=== PATIENT | male | born 1940 | race Caucasian/White ===

== ENCOUNTER 2017-06-09 16:54 | Inpatient (IN) | payer MEDICARE ==
[2017-06-09] MEDS ORDERED: Dexamethasone 10 MG/ML VIAL ONE (18:01)
[2017-06-09] MEDS ORDERED: Magnesium Sulfate 2 GM/NS 0.9% 50 ML BAG ONE (18:01)
[2017-06-09] MEDS ORDERED: Digoxin 0.5 MG/2 ML AMP ONE (18:01)
[2017-06-09] MEDS ORDERED: Dextrose 50% Abboject 50 ML SYRINGE SLOW IVP PRN (18:50)
[2017-06-09] MEDS ORDERED: Acetaminophen 325 MG TAB PO PRN (18:50)
[2017-06-09] MEDS ORDERED: Ondansetron ODT 4 MG TAB PO PRN (18:50)
[2017-06-09] MEDS ORDERED: HYDROcodone/Acetaminophen 5/325 mg Tablet PO PRN (18:50)
[2017-06-09] MEDS ORDERED: Dextrose 5% in Water 1,000 ML IV PRN (18:50)
[2017-06-09] MEDS ORDERED: Albuterol Sulfate 2.5 mg/3 ml Neb NEB PRN (18:56)
[2017-06-09 19:22] LABS: CKMB 2.1 ng/mL (0-6.6); Troponin I 0.037 ng/mL (< 0.028)
[2017-06-09] MEDS ORDERED: Non-Formulary Item 1 EACH (Insulin Glargine,Hum.Rec.Anlog 50 UNIT) SQ SCH (21:00)
[2017-06-09] MEDS ORDERED: Atorvastatin Calcium 10 MG TAB PO SCH (21:00)
[2017-06-09] MEDS ORDERED: Apixaban 5 MG TAB PO SCH (21:00)
[2017-06-09 22:28] LABS: Troponin I 0.709 ng/mL (< 0.028)
[2017-06-10 01:03] LABS: Troponin I 1.835 ng/mL (< 0.028)
[2017-06-10 03:33] LABS: #Lymphocytes 0.4 thou/uL (1.20-3.40); #Monocytes 0.3 thou/uL (0.11-0.59); #Neutrophils 9.9 thou/uL (1.40-6.50); %Eosinophils 0.1 % (0.0-10.0); %Lymphocytes 3.3 % (21.0-51.0); %Monocytes 2.8 % (0.0-10.0); %Neutrophils 93.8 % (42.0-75.0); Hemoglobin 11.3 g/dL (14.0-18.0); Mean Corpuscular Hemoglobin 29.4 pg (27.0-31.0); Mean Corpuscular Volume 89.1 fl (80.0-94.0); Mean Platelet Volume 7.3 fL (7.4-10.4); Platelet Count 235 thou/uL (130-400); Red Blood Cell (RBC) Count 3.85 mill/uL (4.70-6.10); White Blood Cell (WBC) Count 10.6 thou/uL (4.8-10.8)
[2017-06-10 03:36] LABS: Hemoglobin A1c 8.3 % (4.0-6.0)
[2017-06-10 03:48] LABS: Anion Gap 17 mmol/L (10-20); BUN (Urea Nitrogen) 26 mg/dL (8.4-25.7); Calc. Creatinine Clearance 0 mL/min (70-130); Calcium 9.5 mg/dL (7.8-10.44); Carbon Dioxide 19 mmol/L (23-31); Cardiac Risk 3.3 (Less than 4.5); Chloride 101 mmol/L (98-107); Cholesterol 140 mg/dl (< 200 Desired); Estimated GFR-MDRD 41; Glucose 424 mg/dL (83-110); HDL Cholesterol 43 mg/dL (>60 Neg Risk); LDL Cholesterol, Calculated 69 mg/dL; Magnesium 2.1 mg/dL (1.6-2.6); Potassium 4.1 mmol/L (3.5-5.1); Sodium 133 mmol/L (136-145); Triglycerides 139 mg/dL (Less than 150)
[2017-06-10 03:56] LABS: CKMB 10.3 ng/mL (0-6.6); Critical Call Chem Troponin I RESULT DECREASING; Troponin I 1.625 ng/mL (< 0.028)
--- NOTE | 2017-06-10 06:11 | HP ---
DATE OF ADMISSION: 06/09/2017 TIME OF ADMISSION: 1840 hours. PRIMARY CARE PHYSICIAN: Dr. Mckeon. CHIEF COMPLAINT: Shortness of breath. HISTORY OF PRESENT ILLNESS: Mr. August is a 77-year-old white male with history of diabetes, hypertension, hyperlipidemia, and COPD, who presented to [place] [facility] today with 5 days of shortness of breath. He has subjective fevers at home and 5 days of runny nose and congestion, became progressively short of breath, so went to the emergency department this morning, he was admitted to [facility] for acute exacerbation, chronic obstructive pulmonary disease. While there, he was noted to have a high heart rate. He was moved back to the ER for telemetry monitoring, he was noted to be in atrial fibrillation with RVR , so he subsequently discharged and told to come to our Emergency department here. On arrival, he was found to be in atrial fibrillation with RVR. He was given 0.5 mg of digoxin, and started on Cardizem drip. We were called for admission. On my arrival, he had converted to normal sinus rhythm and the process of getting converted over to oral Cardizem. The patient denies any chest pain at this time. No nausea, vomiting, diarrhea, or constipation. He has had no fevers or chills. PAST MEDICAL HISTORY: 1. Diabetes mellitus type 2. 2. Peptic ulcer disease: The patient had multiple ulcers present some 20 years ago. PAST SURGICAL HISTORY: 1. Right TKA about 20 years ago. 2. Appendectomy in 1966 with cholecystectomy in 2016. 3. Umbilical hernia repair in 2016. 4. Four other hernia repairs over the last 20 years. He had his last stress test and heart catheterization in 2008. No stents were placed. HOME MEDICATIONS: 1. Metformin 1000 mg p.o. b.i.d. 2. Clonidine 0.1 mg p.o. b.i.d. 3. Zocor 20 mg p.o. at bedtime. 4. Cholest Off 1 daily. 5. Omeprazole 40 mg daily. 6. Singulair 10 mg p.o. at bedtime. 7. Lantus 50 units subcutaneous q.p.m. 8. HCTZ 25 mg daily. 9. Glimepiride 2 mg p.o. q.a.m. 10. Symbicort 80/4.5 two puffs inhaled b.i.d. 11. Aspirin 81 mg daily. ALLERGIES: NIASPAN. FAMILY HISTORY: Significant for coronary artery disease. He has 5 brother and sister with heart issues. SOCIAL HISTORY: Negative for habits x3. He is 52 years. 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 We did talk about the code status. He does wish to be a full code. His son, Matthew August, area code [phone], as his surrogate decision maker, should he become incapacitated. REVIEW OF SYSTEMS: A 10-point review of systems was performed, negative for all other systems except as stated as per HPI. PHYSICAL EXAMINATION: VITAL SIGNS: Temperature 98.1, pulse 100, blood pressure 121/90, respiratory rate 22, satting 96% on 2 liters nasal cannula. GENERAL: He is awake, alert, and oriented x3, is a well-developed, well- nourished, obese, older white male, appears to be in no acute distress. HEENT: Normocephalic, atraumatic. Pupils equal, round, and reactive to light bilaterally, mucous membranes are moist. He has no visible lesion, no thrush. NECK: Supple, There is no lymphadenopathy, no JVD, no thyromegaly. He has normal carotid upstrokes. I do not appreciate bruits. LUNGS: Clear to auscultation bilaterally. He has good air movement. There is no prolonged expiratory phase and no wheezing. There are no rhonchi or crackles heard. CARDIOVASCULAR: He is tachycardic, but regular. Does have frequent ectopy at this point. He has a 3/6 holosystolic murmur best heard at the apex. ABDOMEN: Obese. It is nontender and slightly distended. He is tympanitic, but does not shift. He has no rebound, rigidity, or guarding. He has normoactive bowel sounds present in all 4 quadrants. EXTREMITIES: Show no cyanosis, no clubbing with trace bilateral lower extremity edema to just above the ankles. He has a 2+ palpable dorsalis pedis, and posterior tibial pulses bilaterally, 2+ radial pulses bilaterally. SKIN: Warm, moist and well perfused without any other rashes or lesions. NEUROLOGIC: Cranial nerves II-XII grossly intact. He has normal speech pattern , 5/5 strength in all 4 of his extremities. He has no focal neurologic deficits. MUSCULOSKELETAL: Normal to inspection. There is no joint inflammation. No palpable effusions. LABORATORY DATA: Sodium 137, potassium 4.5, chloride 104, bicarbonate 18, BUN 17, creatinine 1.25 and calcium 9.3. Glucose is 214. Liver functions are normal. D-dimer was 0.33 this morning. CBC showed white count of 10.1, hemoglobin 12.0, hematocrit 36.8, and platelet count is 214,000. CK-MB was 1.4 and 1.3. Troponin I was 0.020 and BNP was 69. Influenza screen was negative. Chest x-ray showed cardiomegaly, but no signs of CHF or pneumonia. ASSESSMENT AND PLAN: 1. Acute hypoxemic respiratory failure. 2. New onset atrial fibrillation with rapid ventricular response, status post chemical cardioversion. 3. History of peptic ulcer disease. I will place the patient on inpatient status. We will try to convert him over to p.o. Cardizem. We will get serial cardiac biomarkers and ask Cardiology to evaluate. He is in low risk for falls. I will go ahead and start him on Eliquis 5 mg p.o. b.i.d. for his atrial fibrillation, stroke prophylaxis. We will follow up on Cardiology recommendations. 4. Acute exacerbation of chronic obstructive pulmonary disease. DuoNebs q.4 hours and albuterol q.2 hours p.r.n. We used Solu-Medrol 40 mg IV q.6 hours, tonight and likely get oral steroids tomorrow. We will continue him on doxycycline, given that he has had multi antiarrhythmics, I do not want put him on Levaquin at this time. 5. Diabetes mellitus type 2. He is on Lantus normally, metformin, and glimepiride. We will hold the oral medications for now. We use sliding scale insulin, put him on diabetic diet. 6. Hypertension, currently controlled. We will continue home medications. 7. Hyperlipidemia, on Zocor and CholestOff. 8. History of gastroesophageal reflux disease and peptic ulcer disease, on omeprazole. We will continue that daily. MTDD
[2017-06-10 06:27] LABS: Bilirubin Negative (Negative); Blood, Urine Negative (Negative); Clarity CLEAR (Clear); Glucose, Urine (Dipstick) >=1000 mg/dL (Negative); Leukocyte Negative (Negative); Nitrite Negative (Negative); Protein, Urine (Dipstick) Trace mg/dL (Neg-Trace); Specific Gravity, Urine 1.035 (1.002-1.036); Urobilinogen 0.2 mg/dL (0.2-1.0); pH, Urine 5.5 (5.0-9.0)
[2017-06-10] MEDS ORDERED: Enoxaparin Sodium 100 MG/ML SYRINGE SC SCH (08:15)
[2017-06-10] MEDS ORDERED: Digoxin 0.125 MG TAB PO SCH (09:00)
[2017-06-10] MEDS ORDERED: Hydrochlorothiazide 25 MG TAB PO SCH (09:00)
[2017-06-10] MEDS ORDERED: cloNIDine 0.1 MG TAB ONE (10:42)
[2017-06-10] MEDS ORDERED: Digoxin 0.125 MG TAB ONE (10:42)
[2017-06-10] MEDS ORDERED: Sterile Water 10 ML ONE ×2 (10:43→16:22)
[2017-06-10 11:31] LABS: CKMB 9.4 ng/mL (0-6.6); Troponin I 1.623 ng/mL (< 0.028)
[2017-06-10] MEDS ORDERED: Enoxaparin Sodium 100 MG/ML SYRINGE ONE (11:36)
[2017-06-10] MEDS ORDERED: Insulin Regular 300 UNITS/3 ML VIAL ONE (11:50)
[2017-06-10 15:40] VITALS: BMI 37.1
--- NOTE | 2017-06-10 16:08 | PDOC.PN ---
- Subjective Encounter Start Date: 06/10/17 Encounter Start Time: 12:20 PT still in ER overnight. Cardiology not consulted. Remains in NSR. trop peaked at 1.8 before coming down. no CP, SOB improve,d no n/V/D/c, no cough or sputum. 10 point ROs performed and neg for all systems except as above - Objective Resuscitation Status: Resuscitation Status FULL:Full Resuscitation MAR Reviewed: Yes Vital Signs & Weight: Vital Signs (12 hours) Temp Pulse Resp BP Pulse Ox 06/10/17 15:20 96.2 F L 90 24 H 142/71 H 90 L 06/10/17 14:06 89 13 06/10/17 07:13 96 06/10/17 07:12 90 16 Weight Weight 289 lb 6.4 oz Result Diagrams: 06/10/17 03:20 06/10/17 03:20 Additional Labs: Accuchecks 06/10/17 06/10/17 06/10/17 14:55 14:11 12:57 POC Glucose 364 H 362 H 399 H 06/10/17 06/10/17 11:45 00:24 POC Glucose 423 H 316 H Radiology Reviewed by me: Yes EKG Reviewed by me: Yes Phys Exam - Physical Examination Constitutional: NAD HEENT: PERRLA, moist MMs, sclera anicteric, oral pharynx no lesions Neck: no nodes, no JVD, supple, full ROM Respiratory: no wheezing, no rales, no rhonchi, clear to auscultation bilateral Cardiovascular: RRR, no rub apical HSM stable Gastrointestinal: soft, non-tender, no distention, positive bowel sounds Musculoskeletal: no edema, pulses present Neurological: non-focal, normal sensation, moves all 4 limbs Lymphatic: no nodes Psychiatric: normal affect, A&O x 3 Skin: no rash, normal turgor, cap refill <2 seconds Dx/Plan (1) Acute exacerbation of chronic obstructive pulmonary disease (COPD) Code(s): J44.1 - CHRONIC OBSTRUCTIVE PULMONARY DISEASE W (ACUTE) EXACERBATION Status: Acute Comment: improved, steroids, nebs, abx, wena o2 as toleated. mobilize (2) Acute hypoxemic respiratory failure Code(s): J96.01 - ACUTE RESPIRATORY FAILURE WITH HYPOXIA Status: Acute Comment: improved, wena O2 as tolerated (3) NSTEMI (non-ST elevated myocardial infarction) Code(s): I21.4 - NON-ST ELEVATION (NSTEMI) MYOCARDIAL INFARCTION Status: Acute Comment: Trop peaked at 1.8. I have spoken with Dr Cutler, he will see (4) DM2 (diabetes mellitus, type 2) Status: Chronic Qualifiers: Diabetes mellitus complication status: without complication Diabetes mellitus fdc insulin use: without fdc use Qualified Code(s): E11.9 - Type 2 diabetes mellitus without complications Comment: SSI to cover increased glucose due to steroids (5) HTN (hypertension) Code(s): I10 - ESSENTIAL (PRIMARY) HYPERTENSION Status: Chronic Qualifiers: Hypertension type: essential hypertension Qualified Code(s): I10 - Essential (primary) hypertension (6) HLD (hyperlipidemia) Code(s): E78.5 - HYPERLIPIDEMIA, UNSPECIFIED Status: Chronic Qualifiers: Hyperlipidemia type: unspecified Qualified Code(s): E78.5 - Hyperlipidemia , unspecified (7) GERD (gastroesophageal reflux disease) Code(s): K21.9 - GASTRO-ESOPHAGEAL REFLUX DISEASE WITHOUT ESOPHAGITIS Status: Chronic Qualifiers: Esophagitis presence: without esophagitis Qualified Code(s): K21.9 - Gastro -esophageal reflux disease without esophagitis - Plan cont current plan of care, PT/OT, respiratory therapy, out of bed/ambulate * .
[2017-06-10] MEDS: HumaLOG 300 UNITS/3 ML VIAL SC PRN (16:58)
[2017-06-10] MEDS: Sodium Chloride 0.9% 10 ML ONE (17:03)
[2017-06-10] MEDS: Aspirin 81 mg Enteric Coated Tablet PO SCH (19:34)
[2017-06-10] MEDS: Doxycycline 100 MG CAP PO SCH ×3 (19:36→20:47)
[2017-06-10] MEDS: cloNIDine 0.1 MG TAB PO SCH ×3 (19:40→20:47)
[2017-06-10] MEDS: Insulin Detemir 100 UNITS/ML 50 UNITS in Pre-Filled Syringe 1 EACH SC SCH ×2 (19:45→20:47)
[2017-06-10] MEDS: Montelukast Sodium 10 mg Tablet PO SCH ×2 (19:47→20:48)
[2017-06-10] MEDS: Atorvastatin Calcium 40 MG TAB PO SCH (20:47)
[2017-06-10 22:46] LABS: Hemoglobin 11.5 g/dL (14.0-18.0); Platelet Count 260 thou/uL (130-400)
--- NOTE | 2017-06-11 00:46 | CON ---
DATE OF CONSULTATION: 06/10/2017 HISTORY OF PRESENT ILLNESS: The patient is a 77-year-old gentleman who presented with palpitations and chest discomfort. The patient states he has a long history of coronary artery disease. He has undergone several cardiac catheterizations, which revealed him to have apparently a 40% lesion. The patient has been on medical therapy and has done well. He was in his usual state of health when he developed palpitations and then noticed having pain radiating to his left arm. The patient was at that time was in [facility] with flu-like symptoms. The patient was transferred to [place] for further evaluation. The patient denies having any present chest discomfort. PAST MEDICAL HISTORY: 1. Diabetes mellitus. 2. Hypertension. 3. Hyperlipidemia. 4. Peptic ulcer disease. PAST SURGICAL HISTORY: Appendectomy, knee replacement and several hernia surgeries. MEDICATIONS ON ADMISSION: Metformin 1000 b.i.d., clonidine 0.1 b.i.d., Zocor 20 at bedtime, Prilosec 40 daily, Singulair 10 at bedtime, HCTZ 25 daily, aspirin 81 daily. MEDICATIONS: Aspirin 81 daily, clonidine 0.1 b.i.d., glimepiride 2 daily, HCTZ 25 daily, Zocor 20 at bedtime, Prilosec 40 daily. ALLERGIES: NIACIN. FAMILY HISTORY: Very strong family history of heart disease. 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 REVIEW OF SYSTEMS: 10-point system otherwise unremarkable. No history of easy bruising or bright red blood per rectum. PHYSICAL EXAMINATION: GENERAL: An obese gentleman in mild distress. VITAL SIGNS: Blood pressure is 142/71, heart rate is 90. NECK: Showed no jugular venous distention. LUNGS: Coarse breath sounds bilateral. HEART: Regular rate and rhythm. Normal S1, S2. No murmurs. ABDOMEN: Distended. EXTREMITIES: Mild edema. SKIN: Warm and dry. NEUROLOGIC: Nonfocal. VASCULAR: Radial pulse is 2. LABORATORY RESULTS: Sodium is 133, potassium 4.1, chloride 101, bicarbonate 19 , BUN is 26, creatinine is 1.65. His white blood cell count is 10.6, hemoglobin 11.3, hematocrit 34.4 and his platelets were 235. His EKG revealed multifocal atrial tachycardia with a nonspecific ST-T wave abnormality. IMPRESSION: 1. Non-Q-wave myocardial infarction. 2. Multifocal atrial tachycardia. 3. Hypertension. 4. Dyslipidemia. 5. Diabetes mellitus. 6. Morbid obesity. This gentleman presents with a non-Q-wave myocardial infarction. He developed a rapid multifocal atrial tachycardia, which responded to IV Cardizem. The patient will continue on medical therapy. I have discussed the option of proceeding with a cardiac catheterization during this hospitalization. The patient agrees to proceed. PLAN: 1. Treat IV Cardizem. 2. Discontinue Eliquis. 3. Proceed with cardiac catheterization during this hospitalization. DONA
[2017-06-11 05:28] LABS: Anion Gap 17 mmol/L (10-20); BUN (Urea Nitrogen) 31 mg/dL (8.4-25.7); Calc. Creatinine Clearance 78 mL/min (70-130); Calcium 9.4 mg/dL (7.8-10.44); Carbon Dioxide 19 mmol/L (23-31); Chloride 101 mmol/L (98-107); Estimated GFR-MDRD 46; Glucose 342 mg/dL (83-110); Potassium 4.1 mmol/L (3.5-5.1); Sodium 133 mmol/L (136-145)
[2017-06-11 06:32] LABS: #Lymphocytes 0.5 thou/uL (1.20-3.40); #Monocytes 0.5 thou/uL (0.11-0.59); #Neutrophils 14.1 thou/uL (1.40-6.50); %Eosinophils 0.1 % (0.0-10.0); %Lymphocytes 3.4 % (21.0-51.0); %Neutrophils 93.5 % (42.0-75.0); Hemoglobin 11.5 g/dL (14.0-18.0); Mean Corpuscular HGB CONC 33.4 g/dL (32.0-36.0); Mean Corpuscular Hemoglobin 29.5 pg (27.0-31.0); Mean Corpuscular Volume 88.2 fl (80.0-94.0); Mean Platelet Volume 8.2 fL (7.4-10.4); Platelet Count 235 thou/uL (130-400); RBC Distribution Width 13.8 % (11.5-14.5); Red Blood Cell (RBC) Count 3.91 mill/uL (4.70-6.10); White Blood Cell (WBC) Count 15.1 thou/uL (4.8-10.8)
[2017-06-11 06:50] LABS: CKMB 4.9 ng/mL (0-6.6)
[2017-06-11 06:57] LABS: Critical Call Chem Troponin I RESULT DECREASING; Troponin I 0.925 ng/mL (< 0.028)
[2017-06-11] MEDS ORDERED: Sterile Water 10 ML ONE (08:23)
[2017-06-11] MEDS: Doxycycline 100 MG CAP PO SCH ×2 (09:37→20:38)
[2017-06-11] MEDS: cloNIDine 0.1 MG TAB PO SCH ×2 (09:37→20:37)
[2017-06-11] MEDS: Glimepiride 2 MG TAB PO SCH (09:38)
[2017-06-11] MEDS: metFORMIN 500 MG TAB PO SCH ×2 (09:38→17:36)
[2017-06-11] MEDS: Aspirin 81 mg Enteric Coated Tablet PO SCH (09:40)
[2017-06-11] MEDS: Sodium Chloride 0.9% 10 ML ONE ×2 (09:40→15:29)
--- NOTE | 2017-06-11 12:22 | PDOC.PN ---
- Subjective Encounter Start Date: 06/11/17 Encounter Start Time: 07:30 No CP or SOB, no N/V/D/C, breathing much better, less tightness. No cough or sputum production. Seen by Dr Cutler from cardiology last night, to take for cath. unfortunately , was called by nursing regarding eliquis, told them to stop it, and it got given this morning, no cath until tomorrow 10 point rOS performed and neg for all systems except as per HPI - Objective Resuscitation Status: Resuscitation Status FULL:Full Resuscitation MAR Reviewed: Yes Vital Signs & Weight: Vital Signs (12 hours) Temp Pulse Resp BP BP Pulse Ox 06/11/17 11:59 88 24 H 06/11/17 09:37 162/74 H 06/11/17 08:04 92 L 06/11/17 08:00 97.7 F 84 18 162/74 H 96 06/11/17 07:59 72 24 H 92 L 06/11/17 04:01 95 06/11/17 04:00 98.0 F 84 18 145/79 H 93 L 06/11/17 03:46 82 20 95 Weight Admit Weight 289 lb 6.4 oz Weight 289 lb 6.4 oz I&O: 06/10/17 06/11/17 06/12/17 06:59 06:59 06:59 Intake Total 735 Output Total 650 Balance 85 Result Diagrams: 06/11/17 04:39 06/11/17 04:40 Additional Labs: Accuchecks 06/11/17 06/11/17 06/10/17 11:02 05:33 20:00 POC Glucose 410 H 321 H 281 H 06/10/17 06/10/17 06/10/17 16:57 14:55 14:11 POC Glucose 346 H 364 H 362 H 06/10/17 12:57 POC Glucose 399 H Radiology Reviewed by me: Yes EKG Reviewed by me: Yes Phys Exam - Physical Examination Constitutional: NAD HEENT: PERRLA, moist MMs, sclera anicteric, oral pharynx no lesions Neck: no nodes, no JVD, supple, full ROM Respiratory: no wheezing, no rales, no rhonchi, clear to auscultation bilateral Cardiovascular: RRR, no significant murmur, no rub Gastrointestinal: soft, non-tender, no distention, positive bowel sounds Musculoskeletal: no edema, pulses present Neurological: non-focal, normal sensation, moves all 4 limbs Lymphatic: no nodes Psychiatric: normal affect, A&O x 3 Skin: no rash, normal turgor, cap refill <2 seconds Dx/Plan (1) Acute exacerbation of chronic obstructive pulmonary disease (COPD) Code(s): J44.1 - CHRONIC OBSTRUCTIVE PULMONARY DISEASE W (ACUTE) EXACERBATION Status: Acute Comment: improved, steroids, nebs, abx, wean o2 as toleated. mobilize (2) Acute hypoxemic respiratory failure Code(s): J96.01 - ACUTE RESPIRATORY FAILURE WITH HYPOXIA Status: Acute Comment: improved, wean O2 as tolerated (3) NSTEMI (non-ST elevated myocardial infarction) Code(s): I21.4 - NON-ST ELEVATION (NSTEMI) MYOCARDIAL INFARCTION Status: Acute Comment: Trop peaked at 1.8. I have spoken with DAMIEN Shelley tomorrow (4) DM2 (diabetes mellitus, type 2) Status: Chronic Qualifiers: Diabetes mellitus complication status: without complication Diabetes mellitus technician terminal and repeater insulin use: without mcc use Qualified Code(s): E11.9 - Type 2 diabetes mellitus without complications Comment: SSI to cover increased glucose due to steroids (5) HTN (hypertension) Code(s): I10 - ESSENTIAL (PRIMARY) HYPERTENSION Status: Chronic Qualifiers: Hypertension type: essential hypertension Qualified Code(s): I10 - Essential (primary) hypertension (6) HLD (hyperlipidemia) Code(s): E78.5 - HYPERLIPIDEMIA, UNSPECIFIED Status: Chronic Qualifiers: Hyperlipidemia type: unspecified Qualified Code(s): E78.5 - Hyperlipidemia , unspecified (7) GERD (gastroesophageal reflux disease) Code(s): K21.9 - GASTRO-ESOPHAGEAL REFLUX DISEASE WITHOUT ESOPHAGITIS Status: Chronic Qualifiers: Esophagitis presence: without esophagitis Qualified Code(s): K21.9 - Gastro -esophageal reflux disease without esophagitis - Plan cont current plan of care, continue antibiotics, respiratory therapy, out of bed /ambulate * .
[2017-06-11] MEDS: HumaLOG 300 UNITS/3 ML VIAL SC PRN ×2 (15:28→17:38)
[2017-06-11] MEDS: Atorvastatin Calcium 40 MG TAB PO SCH (20:36)
[2017-06-11] MEDS: Enoxaparin Sodium 40 MG/0.4 ML SYRINGE SC SCH (20:38)
[2017-06-11] MEDS: Insulin Detemir 100 UNITS/ML 50 UNITS in Pre-Filled Syringe 1 EACH SC SCH (20:38)
[2017-06-11] MEDS: Montelukast Sodium 10 mg Tablet PO SCH (20:39)
[2017-06-12] MEDS: HYDROcodone/Acetaminophen 10/325 mg Tablet PO PRN (02:09)
[2017-06-12 05:15] LABS: #Lymphocytes 0.4 thou/uL (1.20-3.40); #Monocytes 0.6 thou/uL (0.11-0.59); #Neutrophils 15.5 thou/uL (1.40-6.50); %Eosinophils 0.2 % (0.0-10.0); %Lymphocytes 2.1 % (21.0-51.0); %Monocytes 3.9 % (0.0-10.0); %Neutrophils 93.8 % (42.0-75.0); Mean Corpuscular HGB CONC 32.3 g/dL (32.0-36.0); Mean Corpuscular Hemoglobin 28.9 pg (27.0-31.0); Mean Corpuscular Volume 89.4 fl (80.0-94.0); Mean Platelet Volume 7.9 fL (7.4-10.4); Platelet Count 271 thou/uL (130-400); RBC Distribution Width 13.8 % (11.5-14.5); Red Blood Cell (RBC) Count 4.17 mill/uL (4.70-6.10); White Blood Cell (WBC) Count 16.5 thou/uL (4.8-10.8)
[2017-06-12 05:46] LABS: Anion Gap 20 mmol/L (10-20); BUN (Urea Nitrogen) 37 mg/dL (8.4-25.7); Calc. Creatinine Clearance 78 mL/min (70-130); Calcium 9.6 mg/dL (7.8-10.44); Carbon Dioxide 16 mmol/L (23-31); Chloride 101 mmol/L (98-107); Estimated GFR-MDRD 46; Glucose 316 mg/dL (83-110); Magnesium 2.3 mg/dL (1.6-2.6); Potassium 4.4 mmol/L (3.5-5.1); Sodium 133 mmol/L (136-145)
[2017-06-12] MEDS ORDERED: Communication Order-Pharmacy FS SCH (08:30)
[2017-06-12] MEDS: metFORMIN 500 MG TAB PO SCH ×2 (08:59→17:38)
[2017-06-12] MEDS: cloNIDine 0.1 MG TAB PO SCH ×2 (08:59→20:11)
[2017-06-12] MEDS: Glimepiride 2 MG TAB PO SCH (08:59)
[2017-06-12] MEDS: Aspirin 81 mg Enteric Coated Tablet PO SCH (08:59)
[2017-06-12] MEDS: HumaLOG 300 UNITS/3 ML VIAL SC PRN ×3 (09:00→17:39)
[2017-06-12] MEDS: Doxycycline 100 MG CAP PO SCH ×2 (09:00→20:11)
[2017-06-12] MEDS: Sodium Chloride 0.9% 10 ML ONE (09:00)
--- NOTE | 2017-06-12 14:14 | PDOC.PN ---
- Subjective Encounter Start Date: 06/12/17 Encounter Start Time: 09:30 had a coughing paroxysm last night, leading to left shoulder pain. tele normal , given pain medicine and resolved. No CP, no SOb, no n/V/D/C, no Fever or chills, no cough 10 point ROS performed and neg for all systems except as above. - Objective Resuscitation Status: Resuscitation Status FULL:Full Resuscitation MAR Reviewed: Yes Vital Signs & Weight: Vital Signs (12 hours) Temp Pulse Resp BP BP BP Pulse Ox 06/12/17 11:05 97.2 F L 93 19 134/62 92 L 06/12/17 10:34 85 16 95 06/12/17 08:59 120/56 L 06/12/17 08:00 97.3 F L 86 22 H 159/72 H 95 06/12/17 07:00 97.2 F L 93 19 97 06/12/17 06:57 86 16 96 06/12/17 04:46 94 L 06/12/17 04:00 97.5 F L 86 22 H 120/58 L 93 L Weight Admit Weight 289 lb 6.4 oz Weight 289 lb 6.4 oz I&O: 06/11/17 06/12/17 06/13/17 06:59 06:59 06:59 Intake Total 735 600 Output Total 650 900 Balance 85 -300 Result Diagrams: 06/12/17 05:01 06/12/17 05:01 Additional Labs: Accuchecks 06/12/17 06/12/17 06/11/17 12:09 06:19 19:56 POC Glucose 352 H 298 H 317 H 06/11/17 17:35 POC Glucose 426 H Radiology Reviewed by me: Yes EKG Reviewed by me: Yes Phys Exam - Physical Examination Constitutional: NAD HEENT: PERRLA, moist MMs, sclera anicteric, oral pharynx no lesions Neck: no nodes, no JVD, supple, full ROM Respiratory: no wheezing, no rales, no rhonchi, clear to auscultation bilateral Cardiovascular: RRR, no significant murmur, no rub Gastrointestinal: soft, non-tender, no distention, positive bowel sounds Musculoskeletal: pulses present, edema present Neurological: non-focal, normal sensation, moves all 4 limbs Lymphatic: no nodes Psychiatric: normal affect, A&O x 3 Skin: no rash, normal turgor, cap refill <2 seconds Dx/Plan (1) Acute exacerbation of chronic obstructive pulmonary disease (COPD) Code(s): J44.1 - CHRONIC OBSTRUCTIVE PULMONARY DISEASE W (ACUTE) EXACERBATION Status: Acute Comment: improved, steroids, nebs, abx, wean o2 as tolerated. mobilize (2) Acute hypoxemic respiratory failure Code(s): J96.01 - ACUTE RESPIRATORY FAILURE WITH HYPOXIA Status: Acute Comment: improved, wean O2 as tolerated (3) NSTEMI (non-ST elevated myocardial infarction) Code(s): I21.4 - NON-ST ELEVATION (NSTEMI) MYOCARDIAL INFARCTION Status: Acute Comment: Trop peaked at 1.8. I have spoken with DAMIEN Shelley tomorrow (4) DM2 (diabetes mellitus, type 2) Status: Chronic Qualifiers: Diabetes mellitus complication status: without complication Diabetes mellitus residential insulin use: without extermination inspector use Qualified Code(s): E11.9 - Type 2 diabetes mellitus without complications Comment: SSI to cover increased glucose due to steroids (5) HTN (hypertension) Code(s): I10 - ESSENTIAL (PRIMARY) HYPERTENSION Status: Chronic Qualifiers: Hypertension type: essential hypertension Qualified Code(s): I10 - Essential (primary) hypertension (6) HLD (hyperlipidemia) Code(s): E78.5 - HYPERLIPIDEMIA, UNSPECIFIED Status: Chronic Qualifiers: Hyperlipidemia type: unspecified Qualified Code(s): E78.5 - Hyperlipidemia , unspecified (7) GERD (gastroesophageal reflux disease) Code(s): K21.9 - GASTRO-ESOPHAGEAL REFLUX DISEASE WITHOUT ESOPHAGITIS Status: Chronic Qualifiers: Esophagitis presence: without esophagitis Qualified Code(s): K21.9 - Gastro -esophageal reflux disease without esophagitis - Plan * .
[2017-06-12] MEDS ORDERED: Sodium Chloride 0.9% 10 ML ONE (14:31)
[2017-06-12] MEDS: Atorvastatin Calcium 40 MG TAB PO SCH (20:10)
[2017-06-12] MEDS: Montelukast Sodium 10 mg Tablet PO SCH (20:11)
[2017-06-12] MEDS: Insulin Detemir 100 UNITS/ML 50 UNITS in Pre-Filled Syringe 1 EACH SC SCH (20:16)
[2017-06-12 22:59] LABS: Hemoglobin 11.8 g/dL (14.0-18.0); Platelet Count 288 thou/uL (130-400)
[2017-06-13] MEDS: Enoxaparin Sodium 40 MG/0.4 ML SYRINGE SC SCH (01:39)
[2017-06-13] MEDS: cloNIDine 0.1 MG TAB PO SCH ×2 (06:32→21:17)
[2017-06-13] MEDS: Aspirin 81 mg Enteric Coated Tablet PO SCH (06:32)
[2017-06-13] MEDS ORDERED: Metoprolol Tartrate 5 MG/5 ML VIAL ONE ×3 (09:22→10:14)
[2017-06-13] MEDS ORDERED: Iopamidol 370 76% 100 ML VIAL ONE (09:37)
[2017-06-13] MEDS ORDERED: Acetaminophen/Codeine 30-300mg Tablet PO PRN ×2 (09:57)
[2017-06-13] MEDS ORDERED: traMADol HCl 50 MG TAB PO PRN (09:57)
[2017-06-13] MEDS ORDERED: Nitroglycerin 0.4 MG TAB (25 Tab Bottle) SL PRN (09:57)
[2017-06-13] MEDS ORDERED: Sodium Chloride 0.9% 200 ML IV SCH (10:00)
[2017-06-13] MEDS ORDERED: hydrALAZINE 20 MG/ML VIAL ONE (10:14)
[2017-06-13] MEDS: metFORMIN 500 MG TAB PO SCH ×2 (10:34→17:05)
[2017-06-13] MEDS: Glimepiride 2 MG TAB PO SCH (10:34)
[2017-06-13] MEDS: Doxycycline 100 MG CAP PO SCH ×2 (10:34→21:18)
[2017-06-13] MEDS: HumaLOG 300 UNITS/3 ML VIAL SC PRN ×2 (11:27→17:05)
[2017-06-13] MEDS ORDERED: Clopidogrel Bisulfate 300 MG TAB PO SCH (14:30)
[2017-06-13] MEDS: HYDROcodone/Acetaminophen 10/325 mg Tablet PO PRN (14:50)
--- NOTE | 2017-06-13 15:36 | PDOC.PN ---
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 Had diffused CAD, nothing amenable to stenting, medical management only. No further CP or SOB, weaned off of o2, giovanni nebs. Discussed with Dr Cutler, possible d/C in AM. Pt didnt have afib, was MAT 10 point ROS performed and neg for all systmes except as above - Objective Resuscitation Status: Resuscitation Status FULL:Full Resuscitation MAR Reviewed: Yes Vital Signs & Weight: Vital Signs (12 hours) Temp Pulse Resp BP BP BP Pulse Ox 06/13/17 11:23 97.7 F 76 20 135/79 92 L 06/13/17 09:57 98 F 80 18 162/89 H 92 L 06/13/17 08:00 98 F 80 18 141/73 H 92 L 06/13/17 06:32 132/62 06/13/17 04:00 97.7 F 81 18 132/62 92 L Weight Admit Weight 289 lb 6.4 oz Weight 289 lb 6.4 oz I&O: 06/12/17 06/13/17 06/14/17 06:59 06:59 06:59 Intake Total 600 520 Output Total 900 975 Balance -300 -455 Result Diagrams: 06/12/17 22:50 06/12/17 22:50 Additional Labs: Accuchecks 06/13/17 06/13/17 06/13/17 11:21 10:44 05:56 POC Glucose 304 H 320 H 297 H 06/12/17 06/12/17 20:02 16:48 POC Glucose 266 H 290 H Radiology Reviewed by me: Yes EKG Reviewed by me: Yes Phys Exam - Physical Examination Constitutional: NAD HEENT: PERRLA, moist MMs, sclera anicteric, oral pharynx no lesions Neck: no nodes, no JVD, supple, full ROM Respiratory: no wheezing, no rales, no rhonchi, clear to auscultation bilateral Cardiovascular: RRR, no significant murmur, no rub Gastrointestinal: soft, non-tender, no distention, positive bowel sounds Musculoskeletal: pulses present, edema present Neurological: non-focal, normal sensation, moves all 4 limbs Lymphatic: no nodes Psychiatric: normal affect, A&O x 3 Skin: no rash, normal turgor, cap refill <2 seconds Dx/Plan (1) Acute exacerbation of chronic obstructive pulmonary disease (COPD) Code(s): J44.1 - CHRONIC OBSTRUCTIVE PULMONARY DISEASE W (ACUTE) EXACERBATION Status: Acute Comment: improved, steroids, nebs, abx, wean o2 as tolerated. mobilize (2) Acute hypoxemic respiratory failure Code(s): J96.01 - ACUTE RESPIRATORY FAILURE WITH HYPOXIA Status: Acute Comment: improved, wean O2 as tolerated (3) NSTEMI (non-ST elevated myocardial infarction) Code(s): I21.4 - NON-ST ELEVATION (NSTEMI) MYOCARDIAL INFARCTION Status: Acute Comment: Trop peaked at 1.8. I have spoken with DAMIEN Shelley tomorrow (4) DM2 (diabetes mellitus, type 2) Status: Chronic Qualifiers: Diabetes mellitus complication status: without complication Diabetes mellitus technician terminal and repeater insulin use: without usp use Qualified Code(s): E11.9 - Type 2 diabetes mellitus without complications Comment: SSI to cover increased glucose due to steroids (5) HTN (hypertension) Code(s): I10 - ESSENTIAL (PRIMARY) HYPERTENSION Status: Chronic Qualifiers: Hypertension type: essential hypertension Qualified Code(s): I10 - Essential (primary) hypertension (6) HLD (hyperlipidemia) Code(s): E78.5 - HYPERLIPIDEMIA, UNSPECIFIED Status: Chronic Qualifiers: Hyperlipidemia type: unspecified Qualified Code(s): E78.5 - Hyperlipidemia , unspecified (7) GERD (gastroesophageal reflux disease) Code(s): K21.9 - GASTRO-ESOPHAGEAL REFLUX DISEASE WITHOUT ESOPHAGITIS Status: Chronic Qualifiers: Esophagitis presence: without esophagitis Qualified Code(s): K21.9 - Gastro -esophageal reflux disease without esophagitis - Plan * .
[2017-06-13] MEDS: Atorvastatin Calcium 40 MG TAB PO SCH (21:17)
[2017-06-13] MEDS: Insulin Detemir 100 UNITS/ML 50 UNITS in Pre-Filled Syringe 1 EACH SC SCH (21:18)
[2017-06-13] MEDS: Montelukast Sodium 10 mg Tablet PO SCH (21:18)
[2017-06-14 05:05] LABS: Anion Gap 18 mmol/L (10-20); BUN (Urea Nitrogen) 45 mg/dL (8.4-25.7); Calc. Creatinine Clearance 74 mL/min (70-130); Calcium 8.8 mg/dL (7.8-10.44); Carbon Dioxide 18 mmol/L (23-31); Chloride 103 mmol/L (98-107); Estimated GFR-MDRD 43; Glucose 276 mg/dL (83-110); Potassium 4.6 mmol/L (3.5-5.1); Sodium 134 mmol/L (136-145)
[2017-06-14 07:31] VITALS: BP 148/75; TEMP 97.9
[2017-06-14] MEDS: Doxycycline 100 MG CAP PO SCH (08:51)
[2017-06-14] MEDS: cloNIDine 0.1 MG TAB PO SCH (08:51)
[2017-06-14] MEDS: HumaLOG 300 UNITS/3 ML VIAL SC PRN (08:51)
[2017-06-14] MEDS: Glimepiride 2 MG TAB PO SCH (08:51)
[2017-06-14] MEDS: Aspirin 81 mg Enteric Coated Tablet PO SCH (08:51)
[2017-06-14] MEDS: metFORMIN 500 MG TAB PO SCH (08:51)
[2017-06-14] MEDS ORDERED: Clopidogrel Bisulfate 75 MG TAB PO SCH (09:00)
--- NOTE | 2017-06-14 09:30 | DIS ---
DATE OF ADMISSION: 06/19/2017 DATE OF DISCHARGE: 06/14/2017 PRIMARY CARE PHYSICIAN: Mike Mckeon M.D. DISCHARGE DIAGNOSES: 1. Acute exacerbation of chronic obstructive pulmonary disease. 2. Multifocal atrial tachycardia. 3. Non-ST elevation myocardial infarction. 4. Diffuse non-interventional coronary artery disease. 5. Hypertension. 6. Hyperlipidemia. 7. Diabetes mellitus type 2, insulin-dependent. CONSULTATION: Dr. Clyde Cutler with Cardiology. PROCEDURES: 1. A 2D echocardiogram on 06/09/2017 showed EF of 55%-60%, mildly dilated left atrium, moderate MR, mild TR and small trivial pericardial effusion. 2. Left heart catheterization on 06/22/2017 showing diffuse coronary artery disease with no areas of intervention possible. HISTORY AND PHYSICAL: Mr. August is a 77-year-old white male who presented to outside facility with shortness of breath, was found to have an acute exacerbation of COPD. He was admitted there, but whi le there developed a tachycardia that was irregular and was subsequently transferred to our ER. Here, he was seen and evaluated and found to be in atrial fibrillation and we were called for admissi on. HOSPITAL COURSE: The patient was seen and examined, he was certainly irregularly irregular rhythm, h e was having moderate respiratory distress. He is placed on IV steroids, nebulizer treatments, antib iotics with doxycycline, and was subsequently admitted. Serial cardiac biomarkers were abnormal. It was started 0.56, went up to 1.8. Cardiology consulted and felt that he had a non-ST elevation UT as well, and recommended heart catheterization. However, the patient had got a dose of Eliquis for alleged atrial fibrillation and a heart catheterization was postponed for 2 days. From 06/10/2017-06/12/2017, the patient remained stable. Breathing improved. His oxygen weaned down to 2 liters. On 06/12/2017, he was taken for heart catheterization and was found to have diffuse co ronary disease, but nothing that could be ballooned or stented and subsequently recommended for medic al management. I think he was continued on atorvastatin, aspirin, Plavix was added, he was given Car dizem for his tachycardia, which was felt to be multifocal atrial tachycardia, not AFIB. From 06/12/2017 to 06/14/2017, the patient improved. He was weaned off oxygen and remained stable, w as cleared for discharge today by Cardiology. PHYSICAL EXAMINATION: The patient was seen and examined on the day of discharge. Discharge plan and disposition was discussed with the patient. The patient is at the bedside. DISCHARGE MEDICATIONS: 1. Atorvastatin 40 mg p.o. at bedtime. 2. Aspirin 81 mg daily. 3. Plavix 75 mg daily. 4. Diltiazem 240 mg daily. 5. Doxycycline 100 mg p.o. b.i.d. for 7 more days. 6. Glimepiride 2 mg p.o. q.a.m. with meals. 7. HCTZ 25 mg daily. 8. Insulin Glargine 50 units subcu q.p.m. 9. DuoNebs q.6 hours. 10. Albuterol q.2 hours nebulized as needed. 11. Nebulizer and accessories. 12. Metformin 1000 mg p.o. b.i.d. 13. Singulair 10 mg p.o. at bedtime. 14. Multivitamin daily. 15. Nitrostat 0.4 mg sublingual every 5 minutes. 16. Omeprazole 40 mg daily. Prescriptions were sent for nitroglycerin, nebulizer accessories, DuoNeb, albuterol, doxycycline, Car dizem, Plavix, atorvastatin. FOLLOWUP APPOINTMENTS: 1. Primary care physician Dr. García within a week. 2. Dr. Clyde Cutler in 2-3 weeks. Outpatient cardiac rehabilitation, per today they are clinically scheduled. DISCHARGE CONDITION: Stable. DISPOSITION: Will be discharged home via private vehicle. DISCHARGE DIET: Heart healthy diabetic diet recommended. DISCHARGE ACTIVITY: Per Cardiopulmonary limits.
== END 2017-06-14 10:25 | disposition home or self-care (01) | DRG 280 ==
LOC: ERS 16:54 → ERHOLD 17:43 → 2NO 06-10 14:58
PROVIDERS: ADMIT Internal Medicine Infectious Disease; ATTEND Internal Medicine Infectious Disease
PROC: 4A023N7 Measurement of Cardiac Sampling and Pressure, Left Heart, Percutaneous Approach (ICD-10-PCS; principal; 2017-06-13)
PROC: B2111ZZ Fluoroscopy of Multiple Coronary Arteries using Low Osmolar Contrast (ICD-10-PCS; 2017-06-13)
PROC: B2151ZZ Fluoroscopy of Left Heart using Low Osmolar Contrast (ICD-10-PCS; 2017-06-13)
DX: I21.4 Non-ST elevation (NSTEMI) myocardial infarction (principal); J96.01 Acute respiratory failure with hypoxia; J44.1 Chronic obstructive pulmonary disease with (acute) exacerbation; I08.1 Rheumatic disorders of both mitral and tricuspid valves; E66.01 Morbid (severe) obesity due to excess calories; I47.1 Supraventricular tachycardia; E11.9 Type 2 diabetes mellitus without complications; I10 Essential (primary) hypertension; E78.5 Hyperlipidemia, unspecified; Z79.82 Long term (current) use of aspirin; Z79.4 Long term (current) use of insulin; Z88.8 Allergy status to other drugs, medicaments and biological substances; Z96.651 Presence of right artificial knee joint; K21.9 Gastro-esophageal reflux disease without esophagitis; I25.10 Atherosclerotic heart disease of native coronary artery without angina pectoris; K27.9 Peptic ulcer, site unspecified, unspecified as acute or chronic, without hemorrhage or perforation; Z68.37 Body mass index [BMI] 37.0-37.9, adult
CPT/HCPCS: 36415; 36416; 80048; 80061; 81003; 82553; 83036; 83735; 84443; 84484; 85025; 93306; 93458; 93798; 94640; 94760; 96365; 96366; 96367; 96372; 96375; 96376; A4216; C1769; J0360; J1100; J1160; J1644; J1650; J1815; J1956; J2920; J3475; J7620

== ENCOUNTER 2017-06-16 08:05 | Inpatient (IN) | payer MEDICARE ==
[2017-06-16 08:51] LABS: #Eosinphils 0.1 thou/uL (0.0-0.7); #Lymphocytes 0.8 thou/uL (1.20-3.40); #Monocytes 1.3 thou/uL (0.11-0.59); %Basophils 0.3 % (0.0-1.0); %Eosinophils 0.5 % (0.0-10.0); %Lymphocytes 5.8 % (21.0-51.0); %Monocytes 9.6 % (0.0-10.0); %Neutrophils 83.8 % (42.0-75.0); Mean Corpuscular HGB CONC 33.3 g/dL (32.0-36.0); Mean Platelet Volume 7.9 fL (7.4-10.4); Platelet Count 335 thou/uL (130-400); RBC Distribution Width 13.8 % (11.5-14.5); Red Blood Cell (RBC) Count 4.49 mill/uL (4.70-6.10); White Blood Cell (WBC) Count 13.1 thou/uL (4.8-10.8)
[2017-06-16 09:00] LABS: PTT 25.6 SEC (22.9-36.1); Prothrombin Time 13.5 SEC (12.0-14.7)
--- NOTE | 2017-06-16 09:17 | RAD ---
CHEST 1 VIEW: Date: 06/16/17 HISTORY: 77-year-old male with chest pain. COMPARISON: 06/09/17. FINDINGS: Atherosclerosis of aorta with some ectasia. Heart size is within normal limits. Blunting to both cost ophrenic angles suggesting small pleural effusions and possibly minimal right lower lobe parenchymal changes. The mid and upper lung zones are clear. IMPRESSION: Blunting of both costophrenic angles with minimal parenchymal change in the right base, possibly some minimal subsegmental atelectasis or mild pneumonitis. Continue short-term follow-up for clearing or stability. POS: ROSENDO
[2017-06-16 09:20] LABS: ALT (SGPT) 52 U/L (8-55); AST (SGOT) 53 U/L (5-34); Albumin 3.3 g/dL (3.4-4.8); Alkaline Phosphatase 79 U/L (40-150); Anion Gap 15 mmol/L (10-20); BUN (Urea Nitrogen) 45 mg/dL (8.4-25.7); Bilirubin, Total 0.5 mg/dL (0.2-1.2); CK (CPK) 251 U/L (30-200); Calc. Creatinine Clearance 0 mL/min (70-130); Calcium 8.8 mg/dL (7.8-10.44); Carbon Dioxide 21 mmol/L (23-31); Chloride 102 mmol/L (98-107); Estimated GFR-MDRD 48; Globulin 2.5 g/dL (2.4-3.5); Glucose 217 mg/dL (83-110); Lipase 28 U/L (8-78); Potassium 4.1 mmol/L (3.5-5.1); Protein, Total 5.8 g/dL (5.8-8.1); Sodium 134 mmol/L (136-145)
[2017-06-16 09:24] LABS: CKMB 2.4 ng/mL (0-6.6); Troponin I 0.218 ng/mL (< 0.028)
[2017-06-16 10:02] LABS: Bilirubin Negative (Negative); Blood, Urine Negative (Negative); Clarity CLEAR (Clear); Glucose, Urine (Dipstick) Negative (Negative); Leukocyte Negative (Negative); Nitrite Negative (Negative); Protein, Urine (Dipstick) Negative (Neg-Trace); Specific Gravity, Urine 1.026 (1.002-1.036); Urobilinogen 0.2 mg/dL (0.2-1.0)
[2017-06-16] MEDS ORDERED: Ondansetron HCl/PF 4 MG/2 ML Vial IVP PRN (11:06)
[2017-06-16] MEDS ORDERED: Ondansetron ODT 4 MG TAB SL PRN (11:06)
[2017-06-16] MEDS ORDERED: Aspirin 325 MG TAB PO SCH (11:15)
[2017-06-16] MEDS ORDERED: Sodium Chloride 0.9% 1,000 ML IV SCH (11:15)
[2017-06-16 11:42] VITALS: BMI 35.3
[2017-06-16] MEDS ORDERED: Dextrose 50% Abboject 50 ML SYRINGE SLOW IVP PRN (11:49)
[2017-06-16] MEDS ORDERED: Dextrose 5% in Water 1,000 ML IV PRN (11:49)
[2017-06-16] MEDS ORDERED: Acetaminophen 325 MG TAB PO PRN (12:01)
[2017-06-16] MEDS ORDERED: Bisacodyl 5 MG TAB PO PRN (12:01)
[2017-06-16] MEDS ORDERED: HYDROcodone/Acetaminophen 5/325 mg Tablet PO PRN (12:01)
[2017-06-16] MEDS ORDERED: Mag-Al 1200 mg/1200 mg/30 ML UDCUP PO PRN (12:01)
[2017-06-16] MEDS ORDERED: Albuterol Sulfate 2.5 mg/3 ml Neb NEB PRN (12:11)
[2017-06-16] MEDS ORDERED: Nitroglycerin 0.4 MG TAB (25 Tab Bottle) SL PRN (12:11)
[2017-06-16 12:27] LABS: Troponin I 0.201 ng/mL (< 0.028)
[2017-06-16] MEDS ORDERED: Furosemide 20 MG/2 ML VIAL SLOW IVP SCH (12:30)
[2017-06-16] MEDS: HumaLOG 300 UNITS/3 ML VIAL SC PRN ×2 (12:51→17:36)
[2017-06-16 15:35] LABS: Troponin I 0.195 ng/mL (< 0.028)
--- NOTE | 2017-06-16 15:45 | CON ---
DATE OF CONSULTATION: 06/16/2017 REASON FOR CONSULTATION: Recurrent chest pain. HISTORY OF PRESENT ILLNESS: Mr. August is a 77-year-old gentleman who was seen and evaluated by Dr. Clyde Cutler in the past. He underwent coronary angiography on 06/09/2017. He was found to have sm all vessel disease. He was sent home on medical management. He states he awoke at 06:00 in the morning with crushing substernal pain. No nausea or vomiting. No other associated ameliorating or exacerbating factors present. He proceeded to the emergency room. He was then pain free. PAST MEDICAL HISTORY: CAD, diabetes mellitus, hypertension, hyperlipidemia, peptic ulcer disease, ap pendectomy, knee replacement, and hernia surgery. HOME MEDICATIONS: Include metformin, clonidine, Zocor, Prilosec, Singulair, hydrochlorothiazide, and aspirin. ALLERGIES: NIACIN. SOCIAL HISTORY: No current tobacco or alcohol use. REVIEW OF SYSTEMS: Ten point review of systems is reviewed and as above, otherwise negative. PHYSICAL EXAMINATION: GENERAL: Patient is a pleasant male who is in no acute distress. The patient appears his stated age . VITAL SIGNS: Blood pressure 144/77, pulse 70, temperature 97.7. NEUROLOGIC: The patient is alert and oriented times 3 with no focal neurologic deficits. HEENT: Sclerae without icterus. Mouth has moist mucous membranes with normal pallor. NECK: No JVD. Carotid upstroke brisk. No bruits bilaterally. LUNGS: Clear to auscultation with unlabored respirations. BACK: No scoliosis or kyphosis. CARDIAC: Regular rate and rhythm with normal S1 and S2. No S3 or S4 noted. No significant rubs, mu rmurs, thrills, or gallops noted throughout the precordium. PMI is not displaced. There is no mario ternal heave. ABDOMEN: Soft, nontender, nondistended. No peritoneal signs present. No hepatosplenomegaly. No abnormal striae. EXTREMITIES: 2+ femoral and 2+ dorsalis pedis pulses. No cyanosis, clubbing, or edema. SKIN: No gross abnormalities. PERTINENT LABORATORY DATA: Hemoglobin 13, troponin 0.218, which is down from 0.925. IMPRESSION: 1. Chest pain. 2. Coronary artery disease. 3. Elevated troponin. RECOMMENDATIONS: Elevated troponin today is a reflection of his previous troponins. His CK-MB is no rmal. The etiology of his current episode is unknown. He may have spasm. We will review his cath r esults. May consider long-acting Imdur for now and continue Cardizem. Anticipated discharge in a.m.
--- NOTE | 2017-06-16 19:21 | HP ---
DATE OF ADMISSION: 06/16/2017 PRIMARY CARE PHYSICIAN: Dr. Mckeon. REASON FOR ADMISSION: Chest pain. HISTORY OF PRESENT ILLNESS: Mr. Marin August is a 77-year-old male with a past medical history of di abetes mellitus type 2, hypertension, diffuse coronary artery disease, GERD, and COPD, who presented to the emergency room complaining of chest pain, which began earlier today and has intermittently per sisted. The patient states that the chest pain in the middle of his chest with no radiation. He say s it is crushing in nature 12/11. He states he took 3 doses to sublingual nitroglycerin and the pain only had minimal improvement. Thereafter, called the EMS and patient was brought to the emergency ro om. Here in the emergency room, he was given aspirin. Currently, states his chest pain has improved and it is only 2/10. He states this is not positional and not changing on inspiration. Of note, th e patient was recently admitted and discharged from [facility] on 06/13/2017, at which time he was admitted for COPD exacerbation. While here, the patient had arrhythmias, which was thought to be ___ __ from his COPD. He had some chest discomfort while here and was noted to have a non-STEMI. He was then taken to the cardiac cathode maker and reviewing previous records. The patient was noted to have di ffuse multivessel coronary disease, which not amenable to ballooning the stenting. Medical managemen t was recommended and the patient was subsequently discharged. He did not have adequate time to get a followup. He is now admitted to the telemetry for further evaluation. Currently, he is resting co mfortably. PAST MEDICAL HISTORY: 1. COPD. 2. Hypertension. 3. Hyperlipidemia. 4. Diabetes mellitus type 2. 5. Diffuse coronary disease on cardiac catheterization on 06/09/2017. PAST SURGICAL HISTORY: 1. Right total knee replacement. 2. Appendectomy. 3. Umbilical hernia repair. CODE STATUS: FULL CODE. 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 Denies any alcohol use or illicit drug use. MEDICATIONS: 1. Metformin 1000 mg p.o. b.i.d. 2. Clonidine 0.1 mg p.o. b.i.d. 3. Nitroglycerin p.r.n. 4. Singular 10 mg p.o. at bedtime. 5. DuoNebs p.r.n. 6. Glargine 50 units subcu nightly. 7. Glimepiride 2 mg p.o. daily. 8. Vibramycin 100 mg p.o. b.i.d. 8. Diltiazem 240 mg p.o. daily. 9. Plavix 75 mg p.o. daily. 10. Symbicort 2 puffs inhaled b.i.d. 11. Lipitor 40 mg p.o. at bedtime. 12. Aspirin 81 mg p.o. daily. 13. Albuterol p.r.n. 14. Hydrochlorothiazide 25 mg p.o. daily. ALLERGIES: NIACIN. FAMILY HISTORY: Significant for coronary artery disease. REVIEW OF SYSTEMS: The following complete review of systems was negative, unless otherwise mentioned in the HPI or below: Constitutional: Weight loss or gain, sense of well-being, ability to conduct usual activities, exerc ise tolerance. Skin/Breast: Rash, itching, changes in hair growth or loss, nail changes, breast lumps, tenderness, swelling, nipple discharge. Eyes: Vision, double vision, tearing, blind spots, pain. ENT/Mouth: Headaches (location, time of onset, duration, precipitating factors), vertigo, lightheade dness, injury. Vision, double vision, tearing, blind spots, pain, nose bleeding, colds, obstruction, discharge, dental difficulties, gingival bleeding, dentures, neck stiffness, pain, tenderness, masses in thyroid or other areas Cardiovascular: Precordial pain, substernal distress, palpitations, syncope, dyspnea on exertion, or thopnea, nocturnal paroxysmal dyspnea, edema, cyanosis, hypertension, heart murmurs, varicosities, ph lebitis, claudication. Respiratory: Pain, shortness of breath, wheezing, stridor, cough, hemoptysis, fever or night sweats. Gastrointestinal: Poor appetite, dysphagia, indigestion, abdominal pain, heartburn, eructation, naus ea, vomiting, hematemesis, jaundice, constipation, or diarrhea, abnormal stools (ignacia-colored, tarry, bloody, greasy, foul smelling), flatulence, hemorrhoids, recent changes in bowel habits. Genitourinary: Urgency, frequency, dysuria, nocturia, hematuria, polyuria, oliguria, unusual (or chas nge in) color of urine, stones, hesitancy, change in size of stream, dribbling, acute retention or in continence, libido, potency. Musculoskeletal: Pain, swelling, redness or heat of muscles or joints, limitation, of motion, muscul ar weakness, atrophy, cramps. Neurologic/Psychiatric: Convulsions, paralyses, tremor, incoordination, parasthesias, difficulties w ith memory of speech, sensory or motor disturbances, or muscular coordination (ataxia, tremor), emoti onal problems, anxiety, depression, previous psychiatric care, unusual perceptions, hallucinations. Allergy/Immunologic: Skin rash, anemia, bleeding tendency, polydipsia, polyuria, intolerance to heat or cold. PHYSICAL EXAMINATION: VITAL SIGNS: Blood pressure 154/72, O2 saturation 98% on 2 liters nasal cannula, pulse is 71, respir ations 17, and temperature is 97.7. GENERAL: He is in no acute distress, nontoxic appearing. EYES: Show pupils are round and reactive to light and accommodation. No pale conjunctivae. ENT/MOUTH: Moist oral mucosa. RESPIRATORY: Equal chest wall expansion. No wheezes, rhonchi, or rales. CARDIOVASCULAR: S1 and S2 present. No murmurs, gallops, or rubs. GASTROINTESTINAL: Soft, nontender, nondistended. Bowel sounds present in all 4 quadrants. MUSCULOSKELETAL: Good range of motion in all 4 extremities. No clubbing, no cyanosis. LYMPHATIC: No swollen or painful cervical or axillary lymph nodes. NEUROLOGIC: No ptosis, no facial asymmetry, no tongue deviation or jaw protrusion, no focal deficits . PSYCHIATRIC: He is awake, alert to time, place, person, answers questions appropriately. SKIN: Normal skin turgor. LABORATORY AND X-RAY FINDINGS: Laboratory values taken in emergency room reviewed by me reveals WBC of 32.1, hemoglobin 13.3, hematocrit 39.1, platelet count 335,000. Coags show an INR of 1.0. Chemis tries: Sodium 134, potassium 4.1, chloride 102, carbon dioxide 21, anion gap 15, BUN 45, creatinine 1.42, glucose 217. AST and ALT are 53 and 52. Troponin 0.218. BNP is 51.5, CK-MB is 2.4. Urine is within normal limits. Chest x-ray done in the emergency room reviewed by me reveals some blunting at the angles bilaterally and some small pleural effusions. EKG done in the emergency room reviewed by me reveals sinus rhythm. He does have some PVCs, no acute ST segment abnormalities. ASSESSMENT AND PLAN: Mr. Mairn August is a 77-year-old male with past medical history of hypertensio n, hyperlipidemia, COPD, and diffuse coronary disease, who presents to the emergency room complaining of chest pain. 1. Chest pain. At this time, the patient will admitted to telemetry floor. We will continue to raquel nd his cardiac enzymes. He does have indeterminate troponins at this time, which may be secondary to recent cardiac catheterization and CK-MB is within normal limits. I will continue on aspirin and Pl avix therapy. We will continue with statin therapy. We will give him 1 dose of IV Lasix to see if t here is any symptomatic improvement, although at times not appear to be particularly fluid overloaded . We will consult Cardiology to see if any further intervention is warranted. We will start the pat ient on Ranexa for symptom relief. 2. Hypertension. Continuepatient's home medications. 3. Diabetes mellitus type 2. Continue patient's home medications. We will hold his metformin in ca se the intervention is warranted. 4. Resume the patient's home medications. 5. P.r.n. order set. 6. Deep venous thrombosis prophylaxis. 7. Diabetic diet. 8. FULL CODE. I have explained all this to the patient at bedside. He is agreeable to plan of treatment. All ques tions have been answered. The patient's further hospital course will be dictated by his clinical course while here.
[2017-06-16] MEDS: Mometasone/Formoterol 120 PUFF INHALER INH SCH (19:25)
[2017-06-16] MEDS ORDERED: Sodium Chloride 0.9% 10 ML ONE (20:08)
[2017-06-16] MEDS ORDERED: Non-Formulary Item 1 EACH (Insulin Glargine,Hum.Rec.Anlog 50 UNIT) SQ SCH (21:00)
[2017-06-16] MEDS ORDERED: Atorvastatin Calcium 40 MG TAB PO SCH (21:00)
[2017-06-16] MEDS ORDERED: Montelukast Sodium 10 mg Tablet PO SCH (21:00)
[2017-06-16] MEDS ORDERED: Insulin Detemir 100 UNITS/ML 50 UNITS in Pre-Filled Syringe 1 EACH SC SCH (21:00)
[2017-06-16] MEDS: Doxycycline 100 MG CAP PO SCH (21:24)
[2017-06-16] MEDS: cloNIDine 0.1 MG TAB PO SCH (21:25)
[2017-06-17 05:33] LABS: #Eosinphils 0.2 thou/uL (0.0-0.7); #Lymphocytes 0.9 thou/uL (1.20-3.40); #Monocytes 0.9 thou/uL (0.11-0.59); #Neutrophils 7.2 thou/uL (1.40-6.50); %Basophils 0.1 % (0.0-1.0); %Eosinophils 2.6 % (0.0-10.0); %Lymphocytes 9.8 % (21.0-51.0); %Neutrophils 77.5 % (42.0-75.0); Hemoglobin 12.3 g/dL (14.0-18.0); Mean Corpuscular HGB CONC 32.6 g/dL (32.0-36.0); Mean Corpuscular Hemoglobin 28.7 pg (27.0-31.0); Mean Platelet Volume 7.6 fL (7.4-10.4); Platelet Count 292 thou/uL (130-400); RBC Distribution Width 13.9 % (11.5-14.5); Red Blood Cell (RBC) Count 4.28 mill/uL (4.70-6.10); White Blood Cell (WBC) Count 9.3 thou/uL (4.8-10.8)
[2017-06-17 05:45] LABS: Anion Gap 12 mmol/L (10-20); BUN (Urea Nitrogen) 32 mg/dL (8.4-25.7); Calc. Creatinine Clearance 90 mL/min (70-130); Calcium 8.7 mg/dL (7.8-10.44); Carbon Dioxide 26 mmol/L (23-31); Chloride 101 mmol/L (98-107); Estimated GFR-MDRD 54; Glucose 115 mg/dL (83-110); Potassium 3.5 mmol/L (3.5-5.1); Sodium 135 mmol/L (136-145)
[2017-06-17] MEDS: Mometasone/Formoterol 120 PUFF INHALER INH SCH (06:34)
[2017-06-17] MEDS ORDERED: Glimepiride 2 MG TAB PO SCH (08:00)
[2017-06-17] MEDS ORDERED: Clopidogrel Bisulfate 75 MG TAB PO SCH (09:00)
[2017-06-17] MEDS ORDERED: Aspirin 81 mg Enteric Coated Tablet PO SCH (09:00)
[2017-06-17] MEDS: Doxycycline 100 MG CAP PO SCH (09:19)
[2017-06-17] MEDS: cloNIDine 0.1 MG TAB PO SCH (09:19)
--- NOTE | 2017-06-17 12:22 | PDOC.PN ---
- Subjective Encounter Start Date: 06/17/17 Encounter Start Time: 12:20 Patient seen at bedside. Had an episode of chest discomfort after receiving a duoneb treatment. No C/P now, no SOB - Objective Resuscitation Status: Resuscitation Status FULL:Full Resuscitation MAR Reviewed: Yes Vital Signs & Weight: Vital Signs (12 hours) Temp Pulse Resp BP BP BP BP 06/17/17 09:19 138/78 06/17/17 07:47 98.8 F 67 16 138/78 140/79 137/79 06/17/17 04:03 71 16 06/17/17 04:00 98.3 F 71 20 132/75 Pulse Ox 06/17/17 09:19 06/17/17 07:47 94 L 06/17/17 04:03 98 06/17/17 04:00 94 L Weight Weight 287 lb I&O: 06/16/17 06/17/17 06/18/17 06:59 06:59 06:59 Intake Total 1785 201 Output Total 2430 Balance -645 201 Result Diagrams: 06/17/17 05:05 06/17/17 05:05 Additional Labs: Accuchecks 06/17/17 06/17/17 06/16/17 11:35 05:23 20:51 POC Glucose 169 H 109 234 H 06/16/17 06/16/17 17:12 12:22 POC Glucose 190 H 197 H Phys Exam - Physical Examination Constitutional: NAD HEENT: moist MMs Neck: no JVD Respiratory: clear to auscultation bilateral Cardiovascular: RRR Gastrointestinal: soft Musculoskeletal: pulses present Neurological: moves all 4 limbs Psychiatric: A&O x 3 Skin: normal turgor Dx/Plan (1) Coronary artery vasospasm Code(s): I20.1 - ANGINA PECTORIS WITH DOCUMENTED SPASM Status: Suspected (2) DM2 (diabetes mellitus, type 2) Status: Chronic Qualifiers: Comment: SSI to cover increased glucose due to steroids (3) HLD (hyperlipidemia) Code(s): E78.5 - HYPERLIPIDEMIA, UNSPECIFIED Status: Chronic Qualifiers: (4) HTN (hypertension) Code(s): I10 - ESSENTIAL (PRIMARY) HYPERTENSION Status: Chronic Qualifiers: - Plan cont current plan of care, plan discussed w/ family, respiratory therapy, out of bed/ambulate, DVT proph w/SCDs * Appreciate Cardiology input- pain was likely due to vasospasms. Continue with Diltiazem * Ranexa and Imdur added * Change Duonebs to PRN * Await further cardiology input- possible D/C today
[2017-06-17 13:02] VITALS: BP 119/67; TEMP 97.7
--- NOTE | 2017-06-17 16:53 | DIS ---
DATE OF ADMISSION: 06/16/2017 DATE OF DISCHARGE: 06/17/2017 DISCHARGE DISPOSITION: Home. DISCHARGE FOLLOWUP: With Dr. Cutler in 2 weeks. DISCHARGE DIAGNOSES: 1. Chest pain, most likely secondary to vasospasm. 2. Diffuse coronary artery disease on catheterization on previous admission. 3. Hypertension. 4. Hyperlipidemia. 5. Chronic obstructive pulmonary disease. DISCHARGE MEDICATIONS: 1. Albuterol p.r.n. 2. Aspirin 81 mg p.o. daily. 3. Lipitor 40 mg p.o. at bedtime. 4. Symbicort 2 puffs inhaled b.i.d. 5. Clonidine 0.1 mg p.o. b.i.d. 6. Plavix 75 mg p.o. daily. 7. Cardizem 240 mg p.o. daily. 8. Vibramycin 100 mg p.o. b.i.d. 9. Glimepiride 2 mg p.o. daily. 10. Hydrochlorothiazide 25 mg p.o. daily. 11. Lantus 50 units nightly. 12. DuoNebs q.6 hours p.r.n. 13. Imdur 30 mg p.o. daily. 14. Glucophage 1000 mg p.o. b.i.d. 15. Singulair 10 mg p.o. at bedtime. 16. Omeprazole 40 mg p.o. daily. CONSULTATIONS: Dr. Nova, Cardiology. INPATIENT PROCEDURES: None. INPATIENT RADIOGRAPHIC EXAMINATIONS: Chest x-ray which revealed blunting of both costophrenic angles , mid and upper lung zones are clear. BRIEF HOSPITAL COURSE: Mr. Marin August is a 77-year-old male who presented to the emergency room co mplaining of chest discomfort. The patient had a recent admission and discharge from [facility] time he had a cardiac catheterization, which revealed diffuse multivessel coronary artery diseas e not amenable to ballooning and stenting. He was then subsequently admitted to the telemetry floor. His cardiac enzymes were in the indeterminate range; however, CK-MB has remained normal. He was ev aluated by Cardiology, who stated that his chest pain is most likely secondary to vasospasm and the p atient was started on Imdur. He no longer had any further chest discomfort. It was thought that his troponins were from his previous catheterization and his troponins have been trending downwards. He no longer had any further chest pain. He was evaluated by Cardiology who stated he is appropriate f or discharge and follow up with Dr. Cutler in 2 weeks. The patient is feeling much better, no ches t pain, no shortness of breath. He has been explained the etiology of his chest discomfort. He is f eeling much better and he is clinically appropriate for discharge home today in stable condition. DISCHARGE DIET: Heart healthy, diabetic. ACTIVITY: As tolerated. RESTRICTIONS: None. CODE STATUS: FULL CODE. ALLERGIES: NIACIN. DISCHARGE INSTRUCTIONS: I have explained to the patient that if he has any further chest pain, short ness of breath, palpitations, dizziness, abdominal discomfort, nausea or vomiting that he should retu rn back to the emergency room or contact his PCP or [facility]. I have explained all this to the p atient at bedside. He is agreeable to the plan of discharge. All questions have been answered. Total time required to prepare for discharge 33 minutes.
--- NOTE | 2017-06-30 18:41 | EKG ---
Test Reason : CHEST PAIN Blood Pressure : / mmHG Vent. Rate : 090 BPM Atrial Rate : 090 BPM P-R Int : 180 ms QRS Dur : 096 ms QT Int : 352 ms P-R-T Axes : -05 006 059 degrees QTc Int : 430 ms Sinus rhythm with Premature supraventricular complexes Septal infarct , age undetermined Abnormal ECG Confirmed by DEWAYNE NIXON, MINDY ([id number]), editor at large APOLLO PEÑALOZA ([id number]) on 06/30/2017 6:40:22 PM Referred By: Confirmed By:MINDY BUCHANAN MD
== END 2017-06-17 15:48 | disposition home or self-care (01) | DRG 303 ==
LOC: ERS 08:05 → 2NO 11:00 → OBSVTOIN 11:49
PROVIDERS: ADMIT Hospitalist; ATTEND Hospitalist
DX: I25.111 Atherosclerotic heart disease of native coronary artery with angina pectoris with documented spasm (principal); J44.9 Chronic obstructive pulmonary disease, unspecified; E11.9 Type 2 diabetes mellitus without complications; E78.5 Hyperlipidemia, unspecified; I10 Essential (primary) hypertension; Z79.84 Long term (current) use of oral hypoglycemic drugs; Z79.82 Long term (current) use of aspirin
CPT/HCPCS: 36415; 36416; 71045; 80048; 80053; 81003; 82553; 83690; 83880; 84484; 85025; 85610; 85730; 87804; 93005; 94640; A4216; J1815; J1940; J7611; J7620

== ENCOUNTER 2017-11-08 12:21 | Outpatient (CLI) | payer MEDICARE ==
[2017-11-08 14:01] LABS: Bilirubin Small (Negative); Blood, Urine Negative (Negative); Clarity CLEAR (Clear); Glucose, Urine (Dipstick) Negative (Negative); Leukocyte Trace (Negative); Nitrite Negative (Negative); Protein, Urine (Dipstick) Negative (Neg-Trace); Specific Gravity, Urine 1.026 (1.002-1.036); Urobilinogen 0.2 mg/dL (0.2-1.0)
[2017-11-08 14:04] LABS: Bacteria/HPF None Seen HPF (None Seen); Hyaline Casts/LPF 0-3 HYALINE CAST LPF (0-3 Hyaline); RBC/HPF 0-3 HPF (0-3); Squamous Epithelial None Seen HPF (0-3); WBC/HPF 0-3 HPF (0-3)
== END 2017-11-08 12:22 | disposition home or self-care (01) ==
LOC: LABBT 12:21
PROVIDERS: ATTEND Orthopaedic Surgery
DX: Z01.812 Encounter for preprocedural laboratory examination (principal); M17.12 Unilateral primary osteoarthritis, left knee
CPT/HCPCS: 81001; 87081

== ENCOUNTER 2017-11-08 13:30 | Inpatient (IN) | payer MEDICARE ==
[2017-11-08 12:39] VITALS: BMI 32.2
[2017-11-20] MEDS ORDERED: CEFAZOLIN/Water 2 GM/20 ML SYRINGE ONE (05:59)
[2017-11-20] MEDS ORDERED: Sodium Chloride 0.9% 100 ML ONE (05:59)
[2017-11-20] MEDS ORDERED: Fentanyl 100 MCG/2 ML VIAL ONE ×2 (06:14→06:33)
[2017-11-20] MEDS ORDERED: Vancomycin HCl 1.5 GM in Sodium Chloride 0.9% 250 ML 300 ML IVPB SCH ×2 (06:15→18:00)
[2017-11-20] MEDS ORDERED: Bupivacaine/Epinephrine 0.25% 30 ML VIAL ONE (06:25)
[2017-11-20] MEDS ORDERED: Midazolam HCl 2 mg/2 ml Vial ONE (06:33)
[2017-11-20] MEDS ORDERED: Ropivacaine 0.5% HCl/PF (150 MG/30 ML VIAL) ONE (06:33)
[2017-11-20] MEDS ORDERED: Lidocaine 1% (PF) 30 ML VIAL ONE (07:00)
[2017-11-20] MEDS ORDERED: Levofloxacin 500 mg/D5W 100 ml Premix Bag ONE (07:00)
[2017-11-20] MEDS ORDERED: Promethazine HCl 25 MG/ML VIAL IM PRN ×3 (07:22→10:15)
[2017-11-20] MEDS ORDERED: HYDROcodone/Acetaminophen 10/325 mg Tablet PO PRN ×3 (07:22→10:15)
[2017-11-20] MEDS ORDERED: traMADol HCl 50 MG TAB PO PRN ×2 (07:22→10:15)
[2017-11-20] MEDS ORDERED: Ondansetron HCl/PF 4 MG/2 ML Vial IVP PRN ×3 (07:22→10:15)
[2017-11-20] MEDS ORDERED: Zolpidem Tartrate 5 MG TAB PO PRN ×2 (07:22→10:15)
[2017-11-20] MEDS ORDERED: Fentanyl 100 MCG/2 ML VIAL IV PRN (07:23)
[2017-11-20] MEDS ORDERED: Promethazine HCl 25 MG/ML VIAL SLOW IVP PRN (08:46)
[2017-11-20] MEDS ORDERED: Tranexamic Acid 1,000 MG in Sodium Chloride 0.9% 100 ML IVPB SCH (09:15)
[2017-11-20] MEDS ORDERED: Ketorolac Tromethamine 30 MG/ML VIAL ONE (09:31)
--- NOTE | 2017-11-20 10:00 | RAD ---
LEFT KNEE TWO VIEWS: History: Post op. FINDINGS/IMPRESSION: There are recent post op changes total knee arthroplasty in good position and alignment. Soft tissue air is present. POS: H
[2017-11-20] MEDS ORDERED: diphenhydrAMINE 25 MG CAP PO PRN (10:15)
[2017-11-20] MEDS ORDERED: Acetaminophen 325 MG TAB PO PRN (10:15)
[2017-11-20] MEDS ORDERED: Fentanyl 100 MCG/2 ML VIAL SLOW IVP PRN ×2 (10:15)
[2017-11-20] MEDS: Sodium Chloride 0.9% 1,000 ML IV SCH ×2 (10:33→16:56)
[2017-11-20] MEDS ORDERED: Bupivacaine 0.25% HCL 30 ML VIAL ONE (12:59)
[2017-11-20] MEDS ORDERED: PROPOFOL 200 MG/20 ML VIAL ONE (13:08)
[2017-11-20] MEDS ORDERED: Lidocaine 1% PF 5 ML VIAL ONE (13:08)
[2017-11-20] MEDS ORDERED: Dextrose 50% Abboject 50 ML SYRINGE SLOW IVP PRN (13:57)
[2017-11-20] MEDS ORDERED: HumaLOG 300 UNITS/3 ML VIAL SC PRN ×2 (13:57)
[2017-11-20] MEDS ORDERED: Dextrose 5% in Water 1,000 ML IV PRN (13:57)
[2017-11-20] MEDS ORDERED: Albuterol Sulfate 2.5 mg/3 ml Neb NEB PRN (13:58)
[2017-11-20] MEDS: Ketorolac Tromethamine 30 MG/ML VIAL IVP SCH ×2 (15:51→17:48)
[2017-11-20] MEDS: HYDROcodone/Acetaminophen 10/325 mg Tablet PO PRN (15:52)
[2017-11-20] MEDS: CEFAZOLIN/Water 2 GM/20 ML SYRINGE SLOW IVP SCH (16:50)
[2017-11-20] MEDS ORDERED: Nitroglycerin 0.4 MG TAB (25 Tab Bottle) SL PRN (20:26)
[2017-11-20] MEDS ORDERED: Insulin Glargine 50 UNITS in Pre-Filled Syringe 1 EACH SC SCH (21:00)
[2017-11-20] MEDS ORDERED: Mupirocin 2% Ointment (Nasal) 1 GM TUBE EA NARE SCH (21:00)
[2017-11-20] MEDS ORDERED: cloNIDine 0.1 MG TAB PO SCH (21:00)
[2017-11-20] MEDS: Bupivacaine 0.5% 50 ML in Sodium Chloride 0.9% 50 ML NERVE BLCK SCH (21:01)
[2017-11-20] MEDS: Montelukast Sodium 10 mg Tablet PO SCH (21:02)
[2017-11-20] MEDS: Atorvastatin Calcium 40 MG TAB PO SCH (21:02)
[2017-11-20] MEDS: Mupirocin 2% Ointment 22 GM Tube TOP SCH (21:06)
[2017-11-21] MEDS: Ketorolac Tromethamine 30 MG/ML VIAL IVP SCH ×4 (00:01→17:05)
[2017-11-21] MEDS: CEFAZOLIN/Water 2 GM/20 ML SYRINGE SLOW IVP SCH (00:03)
[2017-11-21] MEDS: traMADol HCl 50 MG TAB PO PRN ×3 (02:03→21:32)
[2017-11-21 04:55] LABS: Hemoglobin 10.2 g/dL (14.0-18.0); Mean Corpuscular HGB CONC 34.1 g/dL (32.0-36.0); Mean Corpuscular Hemoglobin 29.1 pg (27.0-31.0); Mean Corpuscular Volume 85.1 fL (78.0-98.0); Mean Platelet Volume 6.7 fL (7.4-10.4); Platelet Count 222 thou/uL (130-400); RBC Distribution Width 14.9 % (11.5-14.5); Red Blood Cell (RBC) Count 3.52 mill/uL (4.70-6.10); White Blood Cell (WBC) Count 7.7 thou/uL (4.8-10.8)
[2017-11-21] MEDS: Sodium Chloride 0.9% 1,000 ML IV SCH ×2 (06:35→18:30)
[2017-11-21] MEDS ORDERED: Glimepiride 2 MG TAB PO SCH (07:30)
[2017-11-21] MEDS ORDERED: cloNIDine 0.1 MG TAB PO SCH ×2 (07:37→07:45)
[2017-11-21] MEDS: Multivitamin W/ Minerals 1 TAB PO SCH (07:47)
[2017-11-21] MEDS: Senokot S 8.6-50 MG TAB PO SCH ×2 (07:47→21:33)
[2017-11-21] MEDS: Hydrochlorothiazide 25 MG TAB PO SCH (07:47)
[2017-11-21] MEDS: cloNIDine 0.1 MG TAB PO SCH ×2 (07:48→21:34)
[2017-11-21] MEDS: Clopidogrel Bisulfate 75 MG TAB PO SCH (07:48)
[2017-11-21] MEDS: metFORMIN 500 MG TAB PO SCH ×2 (07:48→17:07)
[2017-11-21] MEDS: Ferrous Gluconate 324 MG TAB PO SCH ×2 (07:49→18:34)
[2017-11-21] MEDS: Aspirin 81 mg Enteric Coated Tablet PO SCH (07:49)
[2017-11-21 08:29] LABS: Anion Gap 12 mmol/L (10-20); BUN (Urea Nitrogen) 22 mg/dL (8.4-25.7); Calc. Creatinine Clearance 81 mL/min (70-130); Calcium 8.4 mg/dL (7.8-10.44); Carbon Dioxide 25 mmol/L (23-31); Chloride 103 mmol/L (98-107); Estimated GFR-MDRD 54; Glucose 137 mg/dL (83-110); Potassium 3.7 mmol/L (3.5-5.1); Sodium 136 mmol/L (136-145)
[2017-11-21] MEDS ORDERED: Hydrochlorothiazide 25 MG TAB PO SCH (09:00)
[2017-11-21] MEDS ORDERED: Multivit, Therapeutic 1 TAB PO SCH (09:00)
--- NOTE | 2017-11-21 09:55 | OP ---
PREOPERATIVE DIAGNOSIS: Left knee osteoarthritis. POSTOPERATIVE DIAGNOSIS: Left knee osteoarthritis. PROCEDURE PERFORMED: Left total knee arthroplasty. STAFF: Andrew Bowen M.D. CARE TRANSITION MANAGER: Bartolome Huggins PA-C. ANESTHESIA: Dr. Meyers. The patient received a LMA with adductor canal catheter with a single shot sciatic with 30 mL of Marcaine 0.25% with epinephrine. ESTIMATED BLOOD LOSS: 100 mL TOURNIQUET TIME: 60 minutes at 300 mmHg. ANTIBIOTICS: Ancef 2 grams, vancomycin 1.5 grams, Levaquin 500 mg, TXA 1 gram. IMPLANTS: The patient has [place] Tri[employer]lon total knee components with a size 6 CR femur, size 5 tibial baseplate, a A32 patella and a size 11 mm CS Triathlon poly, X3 poly. COMPLICATIONS: None. HISTORY OF PRESENT ILLNESS: Mr. Funes is a 77-year-old male with history of multiple medical problems, who presents with left knee pain. I discussed with patient the risks and benefits of left total knee arthroplasty to include pain, scar, bleeding, infection, damage to vital structures, decreased range of motion or strength, failure of procedure, continued pain despite the surgery mentioned fracture above or below, loss of life or limb. The patient understood the risks and benefits and elected to proceed. PROCEDURE IN DETAIL: Timeout was performed designating the patient's left lower extremity as the operative site based on sight, consents, and markings. After completion of timeout, the patient's lower extremity was prepped and draped in sterile fashion. Tourniquet was brought up and left up for a total of 60 minutes. An incision with a medial parapatellar approach to the medial jaw superiorly were performed to expose the patella, excised the fat pad, did a medial soft tissue release, everted the patella and mapped out the distal femur cut 11 and 9 with 5 degrees of anterior slope 0 degrees varus valgus removed the osteophyte at a good nice butterfly sign. We then placed our external rotation jig based on epicondyles posterior femoral condyle was placed and pinned, size to size 6, pinned our 6 mm cutting jig cut. We did not have any significant notching, removed anterior and posterior osteophytes, removed the anterior, posterior slope cuts. We removed the cutting block. We then placed our PCL retractor to protect it. We released it to help with positioning of our PCL, we then pinned our tibial guide in place. We cut 3, 8, and 4 degrees posterior slope and 0 degrees varus valgus, removed our tibia, used our lamina spreaders, excised the medial lateral menisci. No decompressing of the posterior. The PCL was decompressed, pinned our 5 tray and anterior one-third in line. We pinned our anterior one-third pin. We then trialed with an 11-mm poly and size 6. We had a good overall alignment position. and did not like the opposition of the knee. We then everted patella, cut 26, the greatest down to about 14 mm. We removed the osteophytes drilled for A32 patella had good tracking and had good overall alignment. We then drilled holes for lugs of femur, removed all the poly in the femur component and had keel for our tibia, removed excess cement and washed. We cemented our tibia, placed our poly, cemented our femur, removed excess. We removed all excess cement and cemented our patella with excess cement. We then closed with #2 Vicryl, #2 Quill, 0 Quill, 2-0 Quill, and glue. The patient's tourniquet was let down at 6 minutes. The patient was admitted to [place] for postop. The patient will be admitted for pain control, given multiple medical problems. DONA
[2017-11-21] MEDS: Mupirocin 2% Ointment 22 GM Tube TOP SCH ×2 (10:03→21:34)
[2017-11-21] MEDS: Bupivacaine 0.5% 50 ML in Sodium Chloride 0.9% 50 ML NERVE BLCK SCH ×2 (10:38→21:34)
[2017-11-21] MEDS: HYDROcodone/Acetaminophen 10/325 mg Tablet PO PRN (13:21)
--- NOTE | 2017-11-21 13:57 | CON ---
DATE OF CONSULTATION: 11/21/2017 REASON FOR CONSULTATION: Medical management. HISTORY OF PRESENT ILLNESS: Mr. Marin August is a 77-year-old male with a past medical history of CO PD, hypertension, type 2 diabetes mellitus, and coronary artery disease. He was admitted for left kn ee total replacement and is currently doing well postop. He has no complaints today. He reports he has been participating in physical therapy. He denies chest pain, palpitations, PND, lower extremity edema, shortness of breath, or abdominal/urinary symptoms. PAST MEDICAL HISTORY: As stated above. PAST SURGICAL HISTORY: Right total knee replacement, appendectomy, umbilical hernia repair. FAMILY HISTORY: Reviewed and noncontributory. ALLERGIES: NIACIN. HOME MEDICATIONS: Reviewed. REVIEW OF SYSTEMS: All systems reviewed were negative except as stated in HPI. PHYSICAL EXAMINATION: VITAL SIGNS: Blood pressure 133/81, oxygen saturation 94% on room air, respiratory rate 16, pulse ra te 95% on room air. GENERAL: Not in acute distress. He is sitting up in chair and looks comfortable. NECK: Supple, full range of movement. No JVD. HEENT: Normocephalic, atraumatic. Not pale, anicteric. Moist mucous membranes. PERRLA. EOMI. CARDIOVASCULAR: S1, S2 only with regular rate and rhythm. No murmurs, rubs, or gallops. RESPIRATORY: Vesicular breath sounds bilateral. No wheezes, rales, or rhonchi. ABDOMEN: Soft, nontender, nondistended. Bowel sounds normoactive. MUSCULOSKELETAL: Left knee brace in place. Moving all extremities. SKIN: Warm, dry, well-perfused. No rashes or lesions. NEUROLOGIC: Alert and well oriented to time, place, and person. No further focal deficits. PSYCHIATRIC: Normal mood and affect. LABORATORY DATA: WBC 7.7, hemoglobin 10.2, platelet count 222. Serum chemistry is unremarkable. Gl ucose was 137, calcium 8.4. IMAGING: Left knee x-ray shows postsurgical changes, but no acute findings. ASSESSMENT AND PLAN: 1. Type 2 diabetes mellitus. 2. Hypertension. 3. Hyperlipidemia. 4. Chronic obstructive pulmonary disease. 5. Status post left total knee replacement. PLAN: Mr. Marin August seems to be doing well postop. While he is in the hospital, we will hold his glimepiride, cut down on his insulin Glargine dose at 30 units q.p.m., continue with metformin and s liding scale insulin. We will ensure diabetic diet, check fingerstick glucose before meals and at be dtime, and ensure hypoglycemia protocol is in place. For his hypertension, we will continue his home medications with holding parameters. For his COPD, he will be on bronchodilator, beta adrenergic therapy p.r.n., and continue his home inh lorraine as well as Singulair. We will monitor him today, and if he continues to do well, we will likel y sign off from his care tomorrow. Do not hesitate to call us if you have any questions or concerns.
[2017-11-21] MEDS ORDERED: Insulin Glargine 30 UNITS in Pre-Filled Syringe 1 EACH SC SCH (21:00)
[2017-11-21] MEDS: Atorvastatin Calcium 40 MG TAB PO SCH (21:33)
[2017-11-21] MEDS: Montelukast Sodium 10 mg Tablet PO SCH (21:33)
[2017-11-22] MEDS: Ketorolac Tromethamine 30 MG/ML VIAL IVP SCH ×2 (00:09→05:45)
[2017-11-22] MEDS: Sodium Chloride 0.9% 1,000 ML IV SCH ×2 (01:09→13:33)
[2017-11-22 05:42] LABS: Hemoglobin 9.8 g/dL (14.0-18.0); Mean Corpuscular HGB CONC 32.3 g/dL (32.0-36.0); Mean Corpuscular Hemoglobin 28.1 pg (27.0-31.0); Mean Corpuscular Volume 86.8 fL (78.0-98.0); Platelet Count 202 thou/uL (130-400); Red Blood Cell (RBC) Count 3.48 mill/uL (4.70-6.10); White Blood Cell (WBC) Count 7.6 thou/uL (4.8-10.8)
[2017-11-22] MEDS: Clopidogrel Bisulfate 75 MG TAB PO SCH (08:44)
[2017-11-22] MEDS: Ferrous Gluconate 324 MG TAB PO SCH (08:45)
[2017-11-22] MEDS: metFORMIN 500 MG TAB PO SCH (08:46)
[2017-11-22] MEDS: Multivitamin W/ Minerals 1 TAB PO SCH (08:46)
[2017-11-22] MEDS: Aspirin 81 mg Enteric Coated Tablet PO SCH (08:46)
[2017-11-22] MEDS: cloNIDine 0.1 MG TAB PO SCH (08:47)
[2017-11-22] MEDS: Senokot S 8.6-50 MG TAB PO SCH (08:49)
[2017-11-22] MEDS: Hydrochlorothiazide 25 MG TAB PO SCH (08:53)
[2017-11-22] MEDS: HYDROcodone/Acetaminophen 10/325 mg Tablet PO PRN (10:14)
[2017-11-22] MEDS: Mupirocin 2% Ointment 22 GM Tube TOP SCH (10:16)
[2017-11-22 15:06] VITALS: BP 126/71; TEMP 98
== END 2017-11-22 16:59 | DRG 470 ==
LOC: SURG A 11-20 05:30 → SDC 11-20 05:30 → UNDOADMIN 11-20 06:50 → SJJU 11-20 06:50 → EDSTATUS 11-20 13:30 → UNDODISIN 11-22 16:59
PROVIDERS: ADMIT Orthopaedic Surgery; ATTEND Orthopaedic Surgery
PROC: 0SRD0J9 Replacement of Left Knee Joint with Synthetic Substitute, Cemented, Open Approach (ICD-10-PCS; principal; 2017-11-20)
DX: M17.12 Unilateral primary osteoarthritis, left knee (principal); Z96.651 Presence of right artificial knee joint; J44.9 Chronic obstructive pulmonary disease, unspecified; I25.10 Atherosclerotic heart disease of native coronary artery without angina pectoris; Z88.8 Allergy status to other drugs, medicaments and biological substances; I25.2 Old myocardial infarction; Z79.899 Other long term (current) drug therapy; Z79.84 Long term (current) use of oral hypoglycemic drugs; Z79.02 Long term (current) use of antithrombotics/antiplatelets; N18.9 Chronic kidney disease, unspecified; E11.22 Type 2 diabetes mellitus with diabetic chronic kidney disease; I12.9 Hypertensive chronic kidney disease with stage 1 through stage 4 chronic kidney disease, or unspecified chronic kidney disease; E78.2 Mixed hyperlipidemia; E66.8 Other obesity; Z79.82 Long term (current) use of aspirin; Z68.32 Body mass index [BMI] 32.0-32.9, adult; Z79.4 Long term (current) use of insulin
CPT/HCPCS: 36415; 36416; 80048; 85027; 94640; 96374; A4216; C1713; C1776; G8978-GP-CK; G8979-GP-CI; G8987-GO-CL; G8988-GO-CJ; J1885; J1956; J2001; J2250; J2795; J3010; J3370; J3490; J7050; J7620

== ENCOUNTER 2017-11-16 10:07 | Outpatient (CLI) | payer MEDICARE ==
[2017-11-16 11:25] LABS: Hemoglobin 12.4 g/dL (14.0-18.0); Mean Corpuscular HGB CONC 33.3 g/dL (32.0-36.0); Mean Corpuscular Hemoglobin 29.1 pg (27.0-31.0); Mean Corpuscular Volume 87.2 fl (80.0-94.0); Mean Platelet Volume 7.7 fL (7.4-10.4); Platelet Count 263 thou/uL (130-400); RBC Distribution Width 15.7 % (11.5-14.5); Red Blood Cell (RBC) Count 4.27 mill/uL (4.70-6.10)
[2017-11-16 11:27] LABS: Bilirubin Negative (Negative); Blood, Urine Negative (Negative); Clarity CLEAR (Clear); Glucose, Urine (Dipstick) Negative (Negative); Leukocyte Small (Negative); Nitrite Negative (Negative); Protein, Urine (Dipstick) Negative (Neg-Trace); Urobilinogen 0.2 mg/dL (0.2-1.0); pH, Urine 6.5 (5.0-9.0)
[2017-11-16 11:30] LABS: Bacteria/HPF None Seen HPF (None Seen); Hyaline Casts/LPF 0-3 HYALINE CAST LPF (0-3 Hyaline); Pathc Cast-AUWi Flag 0.14 (0-2.49); RBC/HPF 0-3 HPF (0-3); Squamous Epithelial 0-3 HPF (0-3)
[2017-11-16 11:33] LABS: Prothrombin Time 13.4 SEC (12.0-14.7)
[2017-11-16 11:58] LABS: Anion Gap 18 mmol/L (10-20); BUN (Urea Nitrogen) 27 mg/dL (8.4-25.7); Calc. Creatinine Clearance 0 mL/min (70-130); Carbon Dioxide 23 mmol/L (23-31); Chloride 101 mmol/L (98-107); Estimated GFR-MDRD 51; Glucose 146 mg/dL (83-110); Potassium 3.8 mmol/L (3.5-5.1); Sodium 138 mmol/L (136-145)
== END 2017-11-16 10:08 | disposition home or self-care (01) ==
LOC: LABBT 10:07
PROVIDERS: ATTEND Orthopaedic Surgery
DX: Z01.812 Encounter for preprocedural laboratory examination (principal); M17.12 Unilateral primary osteoarthritis, left knee
CPT/HCPCS: 80048; 81001; 85027; 85610; 86850; 86900; 86901

== ENCOUNTER 2019-02-11 06:33 | Inpatient (IN) | payer MEDICARE ==
[2019-02-11 08:35] LABS: Troponin I Less than 0.010 ng/mL (< 0.028)
[2019-02-11] MEDS ORDERED: Nitroglycerin 0.4 MG TAB (25 Tab Bottle) PO PRN (09:21)
[2019-02-11] MEDS ORDERED: Dextrose 5% in Water 1,000 ML IV PRN (09:21)
[2019-02-11] MEDS ORDERED: Dextrose 50% Abboject 50 ML SYRINGE SLOW IVP PRN (09:21)
[2019-02-11] MEDS ORDERED: Regadenoson 0.4 MG/5 ML SYRINGE ONE (10:02)
--- NOTE | 2019-02-11 11:13 | HP ---
PRIMARY CARE PHYSICIAN: Mike Mckeon MD. BUGGY LOADER: Clyde Cutler MD CHIEF COMPLAINT: Chest pain. HISTORY OF PRESENT ILLNESS: Mr. August is a very pleasant 78-year-old gentleman, who has a history of diabetes mellitus, coronary artery disease, and hypertension. He was in his usual state of health until this morning. He says he woke up at 3 a.m. with a hurting in his chest. He rated it about 5/10. It was in the center to left side of the chest. It radiated to his left arm and to the middle part of his back. He says he took sublingual nitroglycerin and it did not get better. He waited a few minutes later, took another and then repeated this for third time, and says he could not remember what to do after the third sublingual nitroglycerin. Since the pain did not go away, his drove him to the ER in [place]. There, they gave him 4 aspirin and hooked him up to a monitor. Apparently, it was noted that he had what looked like some group beating. He says they saw 2 complexes together and made the decision to transfer him to our facility for further evaluation. He denies having any shortness of breath. No nausea. No vomiting. No diaphoresis. He says ever since 2018 when he had his cardiac catheterization, he had been doing okay. At that time, his symptoms are a little bit different. He had more pain up under his arm, and at that time, he had a cardiac catheterization in June 2017, which showed some moderate coronary artery disease in 3 vessels and this was treated medically. He says he does some mild working around the house, watering his grass, etc. He does walk with a cane, but says he has been noticing some shortness of breath, but it has been about the same lately. REVIEW OF SYSTEMS: CONSTITUTIONAL: There has been no fevers or chills. No night sweats. No weight loss. HEENT/NECK: No headaches. No dizziness. No visual changes. No sore throat, rhinorrhea, or neck pain. No adenopathy. PULMONARY: No hemoptysis. No cough. No wheezing. CARDIOVASCULAR: As in the history of present illness. GASTROINTESTINAL: No abdominal pain. No nausea. No vomiting. No change in bowels. GENITOURINARY: No urinary frequency or hematuria. No hesitancy. NEUROLOGIC: No focal weakness or numbness. No seizures. PSYCHIATRIC: No symptoms of anxiety or depression. SKIN AND INTEGUMENT: No skin changes. No rash. ALLERGIES: NIACIN. PAST MEDICAL HISTORY: He has had diabetes, hypertension, coronary artery disease, COPD, and hyperlipidemia. PAST SURGICAL HISTORY: He has had an appendectomy, cholecystectomy, right total knee replacement, cataract surgery on the left, and a left total knee replacement. SOCIAL HISTORY: He is a nonsmoker and nondrinker. He is , has 3 children. FAMILY HISTORY: Significant for heart disease and diabetes, and his mother had cancer. CURRENT MEDICATIONS: Include, 1. Hydrochlorothiazide 25 mg daily. 2. Glimepiride 2 mg once a day. 3. Omeprazole 40 mg daily. 4. Montelukast 10 mg daily. 5. Aspirin 81 mg daily. 6. Metformin 1000 mg twice a day. 7. Atorvastatin 40 mg at bedtime. 8. Plavix 75 mg daily. 9. Cartia XT 240 mg q.p.m. 10. Nitrostat sublingual p.r.n. 11. Doxycycline 100 mg twice daily. 12. Clonidine 0.1, transdermal patch. PHYSICAL EXAMINATION: GENERAL: He is alert and oriented. He appears to be in no acute distress. He is well developed and well nourished. VITAL SIGNS: Blood pressure is 137/68, heart rate is 67, respiratory rate of 13, temperature is 98.7. HEENT: Pupils are equal, round, and reactive. Extraocular muscles are intact. Sclerae anicteric. Throat, no erythema, no exudates. NECK: No adenopathy. No bruits. LUNGS: Clear to auscultation. There is no wheezing, no rales, no rhonchi. CARDIOVASCULAR: He has a normal S1 and S2. There is no S3 or S4. No murmurs, clicks, or rubs. ABDOMEN: Soft, nontender, and nondistended. Positive for bowel sounds. No rebound. No guarding. No organomegaly. EXTREMITIES: There is no clubbing or cyanosis. No edema. No calf tenderness. No joint effusions. NEUROLOGIC: Grossly nonfocal. SKIN AND INTEGUMENT: No skin changes. No rash. IMAGING STUDIES: He had an EKG, by my reading, sinus rhythm, the rate was 64. There was poor R-wave progression in V1 through V3 and evidence of a septal infarct. He had a chest x-ray, which is also by my reading showed some cardiomegaly and some haziness in the left lower lobe. No effusions. Troponin is less than 0.010. The white blood cell count is 7.2, hemoglobin is 14.7, hematocrit is 43.9, and platelet count is 244. Sodium 140, potassium 4.1, chloride is 104, CO2 is 24, BUN of 25, creatinine is 1.17, glucose is 112. ASSESSMENT: 1. This is a pleasant 78-year-old gentleman, who presents to the emergency room with the sudden onset of chest pain. This awoke him from sleep. He has a known history of coronary artery disease and risk factors including diabetes and hypertension. Therefore, his risk for coronary artery disease is high. For this reason, we will go ahead and place him in observation. Continue to trend his cardiac enzymes and get a nuclear stress test and a lipid panel to further stratify his risk. 2. Diabetes mellitus. We will continue his usual medications for diabetes as well as a sliding scale. 3. Hypertension. We will continue his antihypertensive medications and medications to help if needed for elevated blood pressure and further recommendations to follow. Job ID: [id number]
--- NOTE | 2019-02-11 14:59 | NM ---
NM Cardiac Stress W EF WF History: Chest pain Comparison: None. Findings: Stress only images were obtained after the intravenous administration 30.2 mCi technetium 9 9m sestamibi intravenously. Rest imaging was not performed as the ordering provider canceled the examination. There is decreased uptake within the anterior wall and septum. Calculated ejection fraction is 71%. Normal wall motion. Impression: Either scar or ischemia of the septum and anterior wall. Rest imaging would be necessary to differentiate this.
[2019-02-11] MEDS ORDERED: Nitroglycerin 2% Ointment 1 INCH/1 GM Packet ONE (15:12)
[2019-02-11 16:57] VITALS: BMI 36.6
[2019-02-11] MEDS: Nitroglycerin 2% Ointment 1 INCH/1 GM Packet TOP SCH ×2 (17:09→20:57)
[2019-02-11 18:25] LABS: Troponin I Less than 0.010 ng/mL (< 0.028)
[2019-02-11] MEDS: Enoxaparin Sodium 120 MG/0.8 ML SYRINGE SC SCH (20:55)
[2019-02-11] MEDS: Atorvastatin Calcium 40 MG TAB PO SCH (20:55)
[2019-02-12 05:42] LABS: #Eosinphils 0.4 thou/uL (0.0-0.7); #Lymphocytes 0.9 thou/uL (1.20-3.40); #Monocytes 0.7 thou/uL (0.11-0.59); #Neutrophils 4.2 thou/uL (1.40-6.50); %Basophils 0.4 % (0.0-1.0); %Eosinophils 6.9 % (0.0-10.0); %Lymphocytes 14.2 % (21.0-51.0); %Monocytes 10.6 % (0.0-10.0); %Neutrophils 67.9 % (42.0-75.0); Hemoglobin 14.6 g/dL (14.0-18.0); Mean Corpuscular HGB CONC 34.8 g/dL (32.0-36.0); Mean Corpuscular Volume 91.8 fL (78.0-98.0); Mean Platelet Volume 7.3 fL (7.4-10.4); Platelet Count 224 thou/uL (130-400); RBC Distribution Width 12.5 % (11.5-14.5); Red Blood Cell (RBC) Count 4.56 mill/uL (4.70-6.10); White Blood Cell (WBC) Count 6.2 thou/uL (4.8-10.8)
[2019-02-12 06:04] LABS: Anion Gap 14 mmol/L (10-20); BUN (Urea Nitrogen) 22 mg/dL (8.4-25.7); Calc. Creatinine Clearance 95 mL/min (70-130); Calcium 9.3 mg/dL (7.8-10.44); Carbon Dioxide 25 mmol/L (23-31); Chloride 104 mmol/L (98-107); Estimated GFR-MDRD 57; Glucose 145 mg/dL (83-110); Potassium 3.8 mmol/L (3.5-5.1); Sodium 139 mmol/L (136-145)
[2019-02-12] MEDS: Nitroglycerin 2% Ointment 1 INCH/1 GM Packet TOP SCH ×3 (06:08→20:43)
[2019-02-12] MEDS: Enoxaparin Sodium 120 MG/0.8 ML SYRINGE SC SCH ×2 (08:33→20:44)
[2019-02-12] MEDS ORDERED: Enoxaparin Sodium 40 MG/0.4 ML SYRINGE SC SCH (09:00)
[2019-02-12] MEDS ORDERED: Aspirin 81 mg Enteric Coated Tablet PO SCH (10:00)
[2019-02-12] MEDS ORDERED: Clopidogrel Bisulfate 300 MG TAB PO SCH (11:00)
[2019-02-12] MEDS ORDERED: Clopidogrel Bisulfate 75 MG TAB PO SCH ×2 (11:00)
[2019-02-12] MEDS ORDERED: Dextrose 50% Abboject 50 ML SYRINGE SLOW IVP PRN (13:55)
[2019-02-12] MEDS ORDERED: HumaLOG 300 UNITS/3 ML VIAL SC PRN ×2 (13:55)
[2019-02-12] MEDS ORDERED: Dextrose 5% in Water 1,000 ML IV PRN (13:55)
--- NOTE | 2019-02-12 16:17 | PDOC.HOSPP ---
- Subjective Encounter Date: 02/12/19 Encounter Time: 13:00 Subjective: Mr. August was seen today in follow-up of unstable angina. He says he is better today. Denies chest pain. - Objective Vital Signs & Weight: Vital Signs (12 hours) Temp Pulse Resp BP BP Pulse Ox 02/12/19 15:24 97.9 F 71 16 121/75 96 02/12/19 14:32 94 L 02/12/19 11:20 98.1 F 73 18 168/86 H 94 L 02/12/19 08:29 98 F 73 18 185/85 H 95 Weight Weight 293 lb 6.4 oz I&O: 02/11/19 02/12/19 02/13/19 06:59 06:59 06:59 Intake Total 1280 Output Total 2000 Balance -720 Result Diagrams: 02/12/19 05:15 02/12/19 05:15 Additional Labs: Accuchecks 02/12/19 02/12/19 02/11/19 11:02 06:16 20:37 POC Glucose 171 H 143 H 192 H 02/11/19 17:55 POC Glucose 140 H Hospitalist ROS - Medication Medications: Active Medications Generic Name Dose Route Start Last Admin Trade Name Freq PRN Reason Stop Dose Admin Atorvastatin Calcium 40 mg 02/11/19 21:00 02/11/19 20:55 Lipitor PO 40 mg HS JETT Administration Diltiazem HCl 240 mg 02/12/19 12:00 02/12/19 11:30 Cardizem Cd PO 240 mg 1200 JETT Administration Enoxaparin Sodium 120 mg 02/11/19 21:00 02/12/19 08:33 Lovenox SC 120 mg 0900,2100 JETT Administration Isosorbide Mononitrate 60 mg 02/12/19 12:00 02/12/19 11:30 Imdur PO 60 mg 1200 JETT Administration Nitroglycerin 0.5 inch 02/11/19 14:00 02/12/19 13:23 Nitro-Bid 2% Ointment TOP 0.5 inch Q8HR JETT Administration - Exam Eye: PERRL Heart: RRR, no murmur, no gallops, no rubs, normal peripheral pulses Respiratory: CTAB, no wheezes, no rales, no ronchi, normal chest expansion, no tachypnea, normal percussion Gastrointestinal: soft, non-tender, non-distended, normal bowel sounds Extremities: no cyanosis, no clubbing, no edema Neurological: CN's grossly intact, no focal deficits Hosp A/P (1) Unstable angina Status: Acute (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
--- NOTE | 2019-02-12 17:13 | CON ---
DATE OF CONSULTATION: HISTORY OF PRESENT ILLNESS: The patient is a 78-year-old gentleman who presents for evaluation of chest discomfort. The patient has a previous history of severe diffuse coronary artery disease. He was admitted with a non-Q-wave myocardial infarction in June of 2017. He subsequently underwent a catheterization, and was found to have diffuse 3-vessel coronary artery disease not easily amenable to revascularization. He subsequently presented with chest pain, and his medications were adjusted. He has been doing very well until the day of admission when he developed recurrent chest pain. He took three nitroglycerin without relief of his pain and discomfort. The patient was not taken off Plavix in July. The patient denies having any PND or orthopnea. PAST MEDICAL HISTORY: 1. Coronary artery disease. 2. Diabetes mellitus. 3. Hypertension. 4. Dyslipidemia. 5. COPD. PAST SURGICAL HISTORY: Appendectomy, cholecystectomy, knee replacement, and cataract surgery. SOCIAL HISTORY: Nonsmoker. FAMILY HISTORY: No strong family history of heart disease. MEDICATIONS: See nursing list. REVIEW OF SYSTEMS: Ten-point system otherwise unremarkable. PHYSICAL EXAMINATION: GENERAL: Obese gentleman, in no acute distress. VITAL SIGNS: Blood pressure 185/85. NECK: No jugular venous distention. LUNGS: Clear to auscultation. HEART: Regular rate and rhythm. Normal S1 and S2. ABDOMEN: Distended. EXTREMITIES: Mild edema. VASCULAR: Radial pulses are 2+. LABORATORY DATA: Sodium 139, potassium 3.8, chloride 104, bicarb 25, BUN 22, and creatinine 1.2, glucose 145. Troponin less than 0.01. White blood cell count 6.2, hemoglobin 14.6, hematocrit 41.9, and platelets are 224. His EKG revealed normal sinus rhythm with sinus arrhythmia and a first-degree AV block. IMPRESSION: 1. Unstable angina. 2. Severe diffuse coronary artery disease. 3. Diabetes mellitus. 4. Hypertension. 5. Dyslipidemia. 6. Obesity. This gentleman presents with unstable angina. He will be treated with Lovenox. I will restart the patient on Plavix. We will increase the doses of his Imdur. We will follow this patient with you through his hospitalization. Job ID: [id number] MTDD
[2019-02-12] MEDS: Montelukast Sodium 10 mg Tablet PO SCH (20:43)
[2019-02-12] MEDS: Atorvastatin Calcium 40 MG TAB PO SCH (20:43)
[2019-02-13] MEDS: Nitroglycerin 2% Ointment 1 INCH/1 GM Packet TOP SCH (06:44)
[2019-02-13] MEDS ORDERED: Non-Formulary Item 1 EACH (Insulin Glargine,Hum.Rec.Anlog [Lantus Solostar] 50 UNIT) SQ SCH (09:00)
[2019-02-13] MEDS: Clopidogrel Bisulfate 75 MG TAB PO SCH (09:29)
[2019-02-13] MEDS: Enoxaparin Sodium 120 MG/0.8 ML SYRINGE SC SCH (09:29)
[2019-02-13] MEDS: Insulin Glargine 50 UNITS in Pre-Filled Syringe 1 EACH SC SCH (09:29)
[2019-02-13 10:24] LABS: Anion Gap 14 mmol/L (10-20); BUN (Urea Nitrogen) 18 mg/dL (8.4-25.7); Calc. Creatinine Clearance 94 mL/min (70-130); Calcium 9.4 mg/dL (7.8-10.44); Carbon Dioxide 22 mmol/L (23-31); Chloride 105 mmol/L (98-107); Estimated GFR-MDRD 57; Glucose 220 mg/dL (83-110); Potassium 3.9 mmol/L (3.5-5.1); Sodium 137 mmol/L (136-145)
--- NOTE | 2019-02-13 16:12 | PDOC.HOSPP ---
- Subjective Encounter Date: 02/13/19 Encounter Time: 11:20 Subjective: Mr. August was seen today in follow-up of unstable angina. He does not have any chest pain. He denies shortness of breath. - Objective Vital Signs & Weight: Vital Signs (12 hours) Temp Pulse Resp BP BP Pulse Ox 02/13/19 15:45 98.2 F 74 16 137/81 94 L 02/13/19 11:15 98.3 F 64 18 121/67 93 L 02/13/19 08:33 98 F 82 18 136/76 94 L 02/13/19 07:14 95 Weight Weight 293 lb 6.4 oz I&O: 02/12/19 02/13/19 02/14/19 06:59 06:59 06:59 Intake Total 1280 1320 Output Total 2000 1700 Balance -720 -380 Result Diagrams: 02/12/19 05:15 02/13/19 09:58 Additional Labs: Accuchecks 02/13/19 02/13/19 02/12/19 11:06 05:35 20:28 POC Glucose 203 H 162 H 198 H 02/12/19 17:10 POC Glucose 179 H Hospitalist ROS - Medication Medications: Active Medications Generic Name Dose Route Start Last Admin Trade Name Freq PRN Reason Stop Dose Admin Atorvastatin Calcium 40 mg 02/11/19 21:00 02/12/19 20:43 Lipitor PO 40 mg HS JETT Administration Clopidogrel Bisulfate 75 mg 02/13/19 09:00 02/13/19 09:29 Plavix PO 75 mg DAILY JETT Administration Diltiazem HCl 240 mg 02/13/19 12:00 02/13/19 11:18 Cardizem Cd PO 240 mg 1200 JETT Administration Insulin Glargine 50 units/ 0.5 mls @ 0 mls/hr 02/13/19 09:00 02/13/19 09:29 Miscellaneous Medication SC 0.5 mls QAM JETT Administration Isosorbide Mononitrate 60 mg 02/12/19 12:00 02/13/19 11:18 Imdur PO 60 mg 1200 JETT Administration Montelukast Sodium 10 mg 02/12/19 21:00 02/12/19 20:43 Singulair PO 10 mg HS JETT Administration - Exam Eye: PERRL, anicteric sclera Heart: RRR, no murmur, no gallops, no rubs, normal peripheral pulses Respiratory: CTAB, no wheezes, no rales, no ronchi, normal chest expansion, no tachypnea, normal percussion Gastrointestinal: soft, non-tender, non-distended, normal bowel sounds, no palpable masses, no hepatomegaly, no splenomegaly Extremities: no cyanosis, no clubbing, 1+ LE edema Neurological: no weakness, no focal deficits Hosp A/P (1) Unstable angina Status: Acute (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
[2019-02-13] MEDS: Acetaminophen 325 MG TAB PO PRN ×2 (18:21→22:40)
[2019-02-13] MEDS: Montelukast Sodium 10 mg Tablet PO SCH (20:35)
[2019-02-13] MEDS: Atorvastatin Calcium 40 MG TAB PO SCH (20:35)
[2019-02-14] MEDS: Clopidogrel Bisulfate 75 MG TAB PO SCH (07:58)
--- NOTE | 2019-02-14 09:36 | PDOC.HOSPP ---
- Subjective Encounter Date: 02/14/19 Encounter Time: 09:34 Subjective: Mr. August was seen today in follow-up of unstable angina. He does not have any complaints today. He denies chest pain or dyspnea. - Objective Vital Signs & Weight: Vital Signs (12 hours) Temp Pulse Resp BP Pulse Ox 02/14/19 07:04 97.8 F 64 16 155/74 H 95 02/14/19 03:24 97.3 F L 62 18 116/57 L 95 02/14/19 00:35 94 L Weight Weight 282 lb 14.4 oz I&O: 02/13/19 02/14/19 02/15/19 06:59 06:59 06:59 Intake Total 1320 1190 Output Total 1700 2050 Balance -380 -860 Result Diagrams: 02/12/19 05:15 02/13/19 09:58 Additional Labs: Accuchecks 02/14/19 02/13/19 02/13/19 05:36 20:17 17:15 POC Glucose 99 209 H 134 H 02/13/19 11:06 POC Glucose 203 H Hospitalist ROS - Medication Medications: Active Medications Generic Name Dose Route Start Last Admin Trade Name Freq PRN Reason Stop Dose Admin Acetaminophen 650 mg 02/11/19 09:21 02/13/19 22:40 Tylenol PO 650 mg Q4H PRN Administration Headache/Fever/Mild Pain (1-3) Atorvastatin Calcium 40 mg 02/11/19 21:00 02/13/19 20:35 Lipitor PO 40 mg HS JETT Administration Clopidogrel Bisulfate 75 mg 02/13/19 09:00 02/14/19 07:58 Plavix PO 75 mg DAILY JETT Administration Diltiazem HCl 240 mg 02/13/19 12:00 02/13/19 11:18 Cardizem Cd PO 240 mg 1200 JETT Administration Insulin Glargine 50 units/ 0.5 mls @ 0 mls/hr 02/13/19 09:00 02/13/19 09:29 Miscellaneous Medication SC 0.5 mls QAM JETT Administration Isosorbide Mononitrate 60 mg 02/12/19 12:00 02/13/19 11:18 Imdur PO 60 mg 1200 JETT Administration Montelukast Sodium 10 mg 02/12/19 21:00 09/12/19 20:35 Singulair PO 10 mg HS JETT Administration - Exam Heart: RRR, no murmur, no gallops, no rubs, normal peripheral pulses Respiratory: CTAB, no wheezes, no rales, no ronchi, normal chest expansion Hosp A/P (1) Unstable angina Status: Acute (2) 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
[2019-02-14] MEDS: Insulin Glargine 50 UNITS in Pre-Filled Syringe 1 EACH SC SCH (09:54)
[2019-02-14 12:47] VITALS: BP 146/79; TEMP 97.7
--- NOTE | 2019-02-15 04:56 | DIS ---
DATE OF ADMISSION: 02/11/2019 DATE OF DISCHARGE: 02/14/2019 PRIMARY CARE PHYSICIAN: Mike Mckeon MD DISCHARGE DISPOSITION: Home. PRIMARY DISCHARGE DIAGNOSES: 1. Unstable angina. 2. Coronary artery disease. 3. Diabetes mellitus. 4. Hypertension. 5. Chronic obstructive pulmonary disease. 6. Hyperlipidemia. DISCHARGE MEDICATIONS: 1. Please note that the patient's dose of Imdur was increased to 60 mg daily. 2. Plavix 75 mg p.o. daily was added. 3. He is to continue Nitrostat 0.4 sublingual p.r.n. 4. Bactroban ointment twice a day. 5. DuoNeb q.6 as needed. 6. Cardizem CD 240 mg daily. 7. Lipitor 40 mg at bedtime. 8. Aspirin 81 mg daily. 9. Ventolin nebs q.2 hours as needed. 10. Omeprazole 40 mg daily. 11. Multivitamin once a day. 12. Singulair 10 mg at bedtime. 13. Metformin 1000 mg twice daily. 14. Lantus insulin 50 units subcu daily. 15. Hydrochlorothiazide 25 mg daily. 16. Clonidine 0.1 mg twice daily. PROCEDURES DONE DURING THIS ADMISSION: The patient had a stress test showing normal wall motion. There is neither scar or ischemia at the anterior wall. CODE STATUS: Full code. ALLERGIES: TO NIACIN. HOSPITAL COURSE: Mr. August is a pleasant 79-year-old gentleman, who presented to the emergency room with chest pain as well as some dyspnea, the full details of which are outlined in the history and physical. There was concern that his pain was similar to one that he had had when he had a previous anginal episode. He was initially placed in observation, however, changed to inpatient when discussion with his payroll secretary was made and it was felt that this was definitely an unstable angina given that this was the first episode that had happened since his cardiac catheterization back in June of 2017. It was felt that he should be hospitalized for several days to help stabilize the plaque. He was placed on Lovenox. The dose of Imdur was increased and he was given a loading dose of Plavix. Over the course of the next few days, his symptoms abated and he was able to be discharged home with close outpatient followup. He is to see Dr. Mckeon in 1 to 2 weeks. Job ID: [id number]
== END 2019-02-14 12:10 | disposition home or self-care (01) | DRG 303 ==
LOC: ERS 06:33 → ERHOLD 06:52 → OBSVTOIN 06:52 → 2NO 16:25
PROVIDERS: ADMIT Hospitalist; ATTEND Hospitalist
DX: I25.110 Atherosclerotic heart disease of native coronary artery with unstable angina pectoris (principal); E11.9 Type 2 diabetes mellitus without complications; I10 Essential (primary) hypertension; J44.9 Chronic obstructive pulmonary disease, unspecified; E78.5 Hyperlipidemia, unspecified; Z96.653 Presence of artificial knee joint, bilateral; I25.111 Atherosclerotic heart disease of native coronary artery with angina pectoris with documented spasm; Z88.8 Allergy status to other drugs, medicaments and biological substances; Z90.49 Acquired absence of other specified parts of digestive tract; Z98.42 Cataract extraction status, left eye; Z79.82 Long term (current) use of aspirin; Z79.02 Long term (current) use of antithrombotics/antiplatelets; Z79.84 Long term (current) use of oral hypoglycemic drugs; I25.2 Old myocardial infarction
CPT/HCPCS: 36415; 36416; 78452; 80048; 85025; 93017; 94760; 99285; A9500; J1650; J1815; J2785

== ENCOUNTER 2020-03-19 06:56 | Outpatient (CLI) | payer MEDICARE ==
[2020-03-20 12:05] LABS: SARS-CoV-2 MS2 Positive; SARS-CoV-2 N Gene Negative; SARS-CoV-2 S Gene Negative; SARS-CoV-2 by NAA Not Detected (NotDetected); SARS-CoV-2 orf1ab Negative
== END 2020-03-19 06:57 | disposition home or self-care (01) ==
LOC: LABBT 06:56
PROVIDERS: ATTEND Internal Medicine
DX: K92.1 Melena (principal); K44.9 Diaphragmatic hernia without obstruction or gangrene; Z20.828 Contact with and (suspected) exposure to other viral communicable diseases; Z86.010 Personal history of colon polyps
CPT/HCPCS: 87635; U0003

== ENCOUNTER 2020-03-23 05:58 | Day surgery (SDC) | payer MEDICARE ==
[2020-03-22 14:46] VITALS: BMI 35.6
[2020-03-23] MEDS ORDERED: PROPOFOL 200 MG/20 ML VIAL ONE (08:59)
[2020-03-23] MEDS ORDERED: Lidocaine 1% PF 5 ML VIAL ONE (08:59)
--- NOTE | 2020-03-23 09:26 | OP ---
DATE OF PROCEDURE: 03/15/2020 [employer]OLESALE DI[employer]OND [employer]OKER SURGEON: None. PROCEDURES PERFORMED: 1. Esophagogastroduodenoscopy, diagnostic. 2. Colonoscopy, surveillance. INDICATIONS: 1. Intermittent dark tarry stools concerning for melena. 2. Hiatal hernia. 3. Prior history of colon polyps (9 tubular adenomas removed on last colonoscopy in 2018). MEDICATIONS: See Anesthesia record. FINDINGS: After discussion of the risks, benefits, and alternatives of the procedure, informed consent was obtained and witnessed. Pre-endoscopic cardiopulmonary examination was satisfactory. Time-out was performed before sedation was achieved. Sedation was achieved with Anesthesia assistance in the endoscopy unit. A Pentax adult upper endoscope was placed into the oropharynx and passed through the cricopharyngeus under direct visualization. The esophageal mucosa appeared normal throughout with a normal-appearing Z-line at 35 cm from the incisors. The endoscope was then advanced into the stomach. The patient does have a 7-cm sliding hiatal hernia with the diaphragmatic pinch located at 42 cm from the incisors. There was no evidence of Logan erosion or ulceration on today's examination. The gastric mucosa both in the herniated portion of the stomach as well as the remainder of the stomach appears normal. The upper endoscope was advanced through the pylorus and into the first and second portions of the duodenum, which also appeared normal. The upper endoscope was completely withdrawn and the patient was repositioned. Digital rectal exam was performed, which was unremarkable. A Pentax adult colonoscope was inserted into the anus and passed forward to the cecum in the usual fashion. The cecal base was identified by the appendiceal orifice as well as the ileocecal valve. The terminal ileum was not intubated. The colonoscope was slowly withdrawn in a gradual and circumferential manner with careful examination of the entire colonic mucosa. The quality of the prep was good. The colonic mucosa appeared normal throughout. There were no polyps or mass lesions visualized on this examination. There was no evidence of any old blood, active bleeding or bleeding lesion. There were a few small diverticula within the sigmoid colon. Retroflexion in the rectum was unremarkable. The colonoscope was completely withdrawn and the patient allowed to recover. The patient tolerated the procedure well. There were no immediate postprocedure complications. IMPRESSION: 1. 7-cm hiatal hernia. 2. Otherwise, normal esophagogastroduodenoscopy. 3. Sigmoid diverticulosis. 4. Otherwise, normal colonoscopy to the cecum. RECOMMENDATIONS: 1. Continue proton pump inhibitor. 2. The patient can resume his Plavix later today. 3. Repeat colonoscopy at a 5-year interval. 4. The patient can follow up in the GI Clinic as needed. Job ID: [id number]
== END 2020-03-23 09:40 | disposition home or self-care (01) ==
LOC: SDC 05:58
PROVIDERS: ATTEND Internal Medicine
PROC: 0DJ08ZZ Inspection of Upper Intestinal Tract, Via Natural or Artificial Opening Endoscopic (ICD-10-PCS; principal; 2020-03-23)
PROC: 0DJD8ZZ Inspection of Lower Intestinal Tract, Via Natural or Artificial Opening Endoscopic (ICD-10-PCS; 2020-03-23)
DX: K57.31 Diverticulosis of large intestine without perforation or abscess with bleeding (principal); K44.9 Diaphragmatic hernia without obstruction or gangrene; Z86.010 Personal history of colon polyps; Z79.4 Long term (current) use of insulin; Z79.899 Other long term (current) drug therapy; Z88.8 Allergy status to other drugs, medicaments and biological substances
CPT/HCPCS: 36416; J2704

== ENCOUNTER 2020-09-13 13:01 | Observation (INO) | payer MEDICARE ==
[2020-09-13] MEDS ORDERED: Nitroglycerin 0.4 MG TAB (25 Tab Bottle) SL PRN (17:44)
[2020-09-13] MEDS ORDERED: Dextrose 50% Abboject 50 ML SYRINGE SLOW IVP PRN (17:46)
[2020-09-13] MEDS ORDERED: HumaLOG 300 UNITS/3 ML VIAL SC PRN (17:46)
[2020-09-13] MEDS ORDERED: Dextrose 5% in Water 1,000 ML IV PRN (17:46)
[2020-09-13] MEDS ORDERED: Ondansetron PF 4 MG/2 ML Vial IVP PRN (17:54)
[2020-09-13] MEDS ORDERED: Ondansetron ODT 4 MG TAB PO PRN (17:54)
[2020-09-13] MEDS ORDERED: Guaifenesin DM 100-10/5 ML UDCUP PO PRN (17:54)
[2020-09-13] MEDS ORDERED: Senokot S 8.6-50 MG TAB PO PRN (17:54)
[2020-09-13] MEDS ORDERED: Acetaminophen 325 MG TAB PO PRN (17:54)
[2020-09-13] MEDS: HumaLOG 300 UNITS/3 ML VIAL SC PRN (18:21)
[2020-09-13 18:41] VITALS: BMI 36.9
[2020-09-13 18:46] LABS: Troponin I 0.019 ng/mL (< 0.028)
[2020-09-13] MEDS: Mometasone 200 MCG/Formoterol 5 MCG 120 PUFF INHALER INH SCH (18:48)
[2020-09-13] MEDS ORDERED: Magnesium 2 GM/50 ML 2 GM in Premix Bag 1 BAG IVPB SCH (19:15)
[2020-09-13] MEDS ORDERED: Atorvastatin Calcium 10 MG TAB PO SCH (21:00)
[2020-09-13 21:01] LABS: Bacteria/HPF None Seen HPF (None Seen); Bilirubin Negative (Negative); Blood, Urine Negative (Negative); Clarity Clear (Clear); Glucose, Urine (Dipstick) 500 mg/dL (Negative); Ketone, Urine Negative (Negative); Leukocyte Negative Leu/uL (Negative); Nitrite Negative (Negative); Protein, Urine (Dipstick) Negative (Neg-Trace); RBC/HPF 0-3 HPF (0-3); Specific Gravity, Urine 1.017 (1.002-1.036); Squamous Epithelial None Seen HPF (0-3); Urobilinogen Normal mg/dL (Less than 2); WBC/HPF 0-3 HPF (0-3); pH, Urine 5.5 (5.0-9.0)
[2020-09-13] MEDS: Montelukast Sodium 10 mg Tablet PO SCH (21:17)
[2020-09-13] MEDS: cloNIDine 0.1 MG TAB PO SCH (21:17)
[2020-09-13 21:57] LABS: Troponin I 0.022 ng/mL (< 0.028)
[2020-09-14] MEDS ORDERED: Enoxaparin Sodium 80 MG/0.8 ML SYRINGE SC SCH (00:10)
[2020-09-14 02:13] LABS: SARS-CoV-2 PCR by NAA Not Detected (NotDetected)
[2020-09-14 04:45] LABS: #Eosinphils 0.2 thou/uL (0.0-0.7); #Lymphocytes 0.9 thou/uL (1.20-3.40); #Monocytes 0.7 thou/uL (0.11-0.59); #Neutrophils 4.3 thou/uL (1.40-6.50); %Basophils 0.5 % (0.0-1.0); %Eosinophils 3.6 % (0.0-10.0); %Lymphocytes 14.8 % (21.0-51.0); %Monocytes 11.6 % (0.0-10.0); %Neutrophils 69.5 % (42.0-75.0); Hemoglobin 13.4 g/dL (14.0-18.0); Mean Corpuscular HGB CONC 32.2 g/dL (32.0-36.0); Mean Corpuscular Hemoglobin 30.1 pg (27.0-31.0); Mean Corpuscular Volume 93.6 fL (78.0-98.0); Mean Platelet Volume 7.4 fL (7.4-10.4); Platelet Count 249 thou/uL (130-400); RBC Distribution Width 12.7 % (11.5-14.5); Red Blood Cell (RBC) Count 4.43 mill/uL (4.70-6.10); White Blood Cell (WBC) Count 6.1 thou/uL (4.8-10.8)
[2020-09-14 05:07] LABS: Anion Gap 13 mmol/L (10-20); BUN (Urea Nitrogen) 18 mg/dL (8.4-25.7); Calc. Creatinine Clearance 97 mL/min (70-130); Calcium 8.9 mg/dL (7.8-10.44); Carbon Dioxide 26 mmol/L (23-31); Cardiac Risk 2.8 (Less than 4.5); Chloride 105 mmol/L (98-107); Cholesterol 95 mg/dl (< 200 Desired); Glucose 149 mg/dL (83-110); HDL Cholesterol 34 mg/dL (>60 Neg Risk); LDL Cholesterol, Calculated 42 mg/dL; Potassium 3.3 mmol/L (3.5-5.1); Sodium 141 mmol/L (136-145); Triglycerides 94 mg/dL (Less than 150)
[2020-09-14] MEDS: Mometasone 200 MCG/Formoterol 5 MCG 120 PUFF INHALER INH SCH ×2 (07:24→18:19)
[2020-09-14] MEDS: Clopidogrel Bisulfate 75 MG TAB PO SCH (09:23)
[2020-09-14] MEDS: Hydrochlorothiazide 25 MG TAB PO SCH (09:23)
[2020-09-14] MEDS: Aspirin 81 mg Enteric Coated Tablet PO SCH (09:23)
[2020-09-14] MEDS: cloNIDine 0.1 MG TAB PO SCH (09:23)
[2020-09-14] MEDS: Lantus 1000 UNITS/10 ML VIAL SC SCH (09:23)
[2020-09-14] MEDS: HumaLOG 300 UNITS/3 ML VIAL SC PRN ×2 (11:38→17:37)
[2020-09-14] MEDS ORDERED: Dronedarone HCl 400 MG TAB PO SCH (18:00)
[2020-09-14] MEDS: Montelukast Sodium 10 mg Tablet PO SCH (21:00)
[2020-09-14] MEDS: Icosapent Ethyl 1 GM CAPSULE PO SCH (21:00)
[2020-09-14] MEDS ORDERED: Atorvastatin Calcium 40 MG TAB PO SCH (21:00)
[2020-09-15 05:33] LABS: Anion Gap 14 mmol/L (10-20); BUN (Urea Nitrogen) 20 mg/dL (8.4-25.7); Calc. Creatinine Clearance 92 mL/min (70-130); Carbon Dioxide 27 mmol/L (23-31); Chloride 102 mmol/L (98-107); Glucose 190 mg/dL (83-110); Magnesium 1.8 mg/dL (1.6-2.6); Potassium 3.6 mmol/L (3.5-5.1); Sodium 139 mmol/L (136-145)
[2020-09-15] MEDS: HumaLOG 300 UNITS/3 ML VIAL SC PRN ×2 (06:17→12:55)
[2020-09-15] MEDS ORDERED: Dronedarone HCl 400 MG TAB PO SCH ×3 (08:00→17:00)
[2020-09-15] MEDS: Mometasone 200 MCG/Formoterol 5 MCG 120 PUFF INHALER INH SCH (08:13)
[2020-09-15] MEDS: Aspirin 81 mg Enteric Coated Tablet PO SCH (08:28)
[2020-09-15] MEDS: Hydrochlorothiazide 25 MG TAB PO SCH (08:28)
[2020-09-15] MEDS: Icosapent Ethyl 1 GM CAPSULE PO SCH (08:28)
[2020-09-15] MEDS: Clopidogrel Bisulfate 75 MG TAB PO SCH (08:28)
[2020-09-15] MEDS: Lantus 1000 UNITS/10 ML VIAL SC SCH (08:29)
[2020-09-15 13:25] VITALS: BP 132/76; TEMP 98
[2020-09-15] MEDS ORDERED: Flecainide 50 MG TAB PO SCH (18:00)
== END 2020-09-15 14:20 | disposition home or self-care (01) ==
LOC: 2NO 13:01 → INTOOBSV 13:01
PROVIDERS: ADMIT Internal Medicine; ATTEND Family Medicine
DX: I48.0 Paroxysmal atrial fibrillation (principal); R55 Syncope and collapse; I95.9 Hypotension, unspecified; R42 Dizziness and giddiness; R07.89 Other chest pain; I12.9 Hypertensive chronic kidney disease with stage 1 through stage 4 chronic kidney disease, or unspecified chronic kidney disease; E11.22 Type 2 diabetes mellitus with diabetic chronic kidney disease; N18.32 Chronic kidney disease, stage 3b; J44.9 Chronic obstructive pulmonary disease, unspecified; I25.111 Atherosclerotic heart disease of native coronary artery with angina pectoris with documented spasm; K21.9 Gastro-esophageal reflux disease without esophagitis; E78.5 Hyperlipidemia, unspecified; I65.21 Occlusion and stenosis of right carotid artery; I08.3 Combined rheumatic disorders of mitral, aortic and tricuspid valves; I25.2 Old myocardial infarction; I48.92 Unspecified atrial flutter; E66.01 Morbid (severe) obesity due to excess calories; Z68.37 Body mass index [BMI] 37.0-37.9, adult; Z79.02 Long term (current) use of antithrombotics/antiplatelets; Z79.4 Long term (current) use of insulin; Z79.82 Long term (current) use of aspirin; Z79.899 Other long term (current) drug therapy; Z88.8 Allergy status to other drugs, medicaments and biological substances; Z91.048 Other nonmedicinal substance allergy status; Z20.822 Contact with and (suspected) exposure to COVID-19
CPT/HCPCS: 80048 ×2; 80061; 81001; 82962 ×3; 83735 ×2; 84443; 84484; 85025; 93306; 93880; 94640 ×3; 94760 ×2; 96374; 97116; 97139; G0378 ×3; U0003; U0005; 36415; 36416; 87635; J1815; J3475

== ENCOUNTER 2020-10-15 17:45 | Inpatient (IN) | payer MEDICARE ==
[2020-10-15 19:06] VITALS: BMI 36.3
[2020-10-15] MEDS ORDERED: Dextrose 50% Abboject 50 ML SYRINGE SLOW IVP PRN (20:12)
[2020-10-15] MEDS ORDERED: Acetaminophen 325 MG TAB PO PRN (20:12)
[2020-10-15] MEDS ORDERED: Ondansetron PF 4 MG/2 ML Vial IVP PRN (20:12)
[2020-10-15] MEDS ORDERED: Dextrose 5% in Water 1,000 ML IV PRN (20:12)
[2020-10-15] MEDS ORDERED: hydrALAZINE 20 MG/ML VIAL SLOW IVP PRN (20:18)
[2020-10-15] MEDS ORDERED: Potassium Chloride 20 MEQ TAB PO SCH (20:30)
[2020-10-15] MEDS ORDERED: Dronedarone HCl 400 MG TAB PO SCH (20:30)
[2020-10-15] MEDS ORDERED: Nitroglycerin 0.4 MG TAB (25 Tab Bottle) SL PRN (20:46)
[2020-10-15] MEDS ORDERED: Atorvastatin Calcium 10 MG TAB PO SCH (21:00)
[2020-10-15] MEDS ORDERED: Famotidine 20 MG TAB PO SCH (21:00)
[2020-10-15] MEDS: HumaLOG 300 UNITS/3 ML VIAL SC PRN (21:54)
[2020-10-15 21:56] LABS: Troponin I 0.015 ng/mL (< 0.028)
[2020-10-15 23:52] LABS: Troponin I 0.021 ng/mL (< 0.028)
[2020-10-16 02:17] LABS: SARS-CoV-2 NAA Rapid Test Not Detected (NotDetected)
[2020-10-16 04:57] LABS: #Eosinphils 0.2 thou/uL (0.0-0.7); #Lymphocytes 0.9 thou/uL (1.20-3.40); #Monocytes 0.6 thou/uL (0.11-0.59); #Neutrophils 4.3 thou/uL (1.40-6.50); %Basophils 0.8 % (0.0-1.0); %Eosinophils 3.7 % (0.0-10.0); %Lymphocytes 14.6 % (21.0-51.0); %Neutrophils 70.9 % (42.0-75.0); Hemoglobin 12.5 g/dL (14.0-18.0); Mean Corpuscular HGB CONC 32.9 g/dL (32.0-36.0); Mean Corpuscular Hemoglobin 31.2 pg (27.0-31.0); Mean Corpuscular Volume 94.8 fL (78.0-98.0); Mean Platelet Volume 7.2 fL (7.4-10.4); Platelet Count 222 thou/uL (130-400); RBC Distribution Width 12.9 % (11.5-14.5); Red Blood Cell (RBC) Count 4.03 mill/uL (4.70-6.10)
[2020-10-16 05:19] LABS: Anion Gap 11 mmol/L (10-20); BUN (Urea Nitrogen) 23 mg/dL (8.4-25.7); Calc. Creatinine Clearance 81 mL/min (70-130); Calcium 9.1 mg/dL (7.8-10.44); Carbon Dioxide 25 mmol/L (23-31); Chloride 107 mmol/L (98-107); Glucose 245 mg/dL (83-110); Magnesium 1.7 mg/dL (1.6-2.6); Potassium 4.1 mmol/L (3.5-5.1); Sodium 139 mmol/L (136-145)
[2020-10-16] MEDS: Dronedarone HCl 400 MG TAB PO SCH ×2 (08:00→13:26)
[2020-10-16] MEDS ORDERED: Regadenoson 0.4 MG/5 ML SYRINGE ONE (10:57)
[2020-10-16] MEDS: Aspirin 81 mg Enteric Coated Tablet PO SCH (13:26)
[2020-10-16] MEDS: Clopidogrel Bisulfate 75 MG TAB PO SCH (13:26)
[2020-10-16] MEDS: HumaLOG 300 UNITS/3 ML VIAL SC PRN ×3 (13:28→20:59)
[2020-10-16] MEDS: Metoprolol Tartrate 25 MG TAB PO SCH (20:34)
[2020-10-16] MEDS: Atorvastatin Calcium 40 MG TAB PO SCH (20:34)
[2020-10-16] MEDS: Latanoprost 0.005% Ophth Soln 2.5 ml Bottle EA EYE SCH (21:12)
[2020-10-17 05:07] LABS: #Eosinphils 0.4 thou/uL (0.0-0.7); #Lymphocytes 1.2 thou/uL (1.20-3.40); #Monocytes 0.7 thou/uL (0.11-0.59); #Neutrophils 5.4 thou/uL (1.40-6.50); %Eosinophils 4.5 % (0.0-10.0); %Monocytes 9.4 % (0.0-10.0); %Neutrophils 70.1 % (42.0-75.0); Hemoglobin 14.3 g/dL (14.0-18.0); Mean Corpuscular HGB CONC 32.9 g/dL (32.0-36.0); Mean Corpuscular Hemoglobin 31.2 pg (27.0-31.0); Mean Corpuscular Volume 94.9 fL (78.0-98.0); Mean Platelet Volume 6.9 fL (7.4-10.4); Platelet Count 236 thou/uL (130-400); RBC Distribution Width 12.9 % (11.5-14.5); Red Blood Cell (RBC) Count 4.56 mill/uL (4.70-6.10); White Blood Cell (WBC) Count 7.8 thou/uL (4.8-10.8)
[2020-10-17 05:29] LABS: Anion Gap 12 mmol/L (10-20); BUN (Urea Nitrogen) 17 mg/dL (8.4-25.7); Calc. Creatinine Clearance 87 mL/min (70-130); Calcium 9.4 mg/dL (7.8-10.44); Carbon Dioxide 26 mmol/L (23-31); Cardiac Risk 2.9 (Less than 4.5); Chloride 105 mmol/L (98-107); Cholesterol 114 mg/dl (< 200 Desired); Glucose 189 mg/dL (83-110); HDL Cholesterol 39 mg/dL (>60 Neg Risk); LDL Cholesterol, Calculated 54 mg/dL; Magnesium 1.7 mg/dL (1.6-2.6); Potassium 4.2 mmol/L (3.5-5.1); Sodium 139 mmol/L (136-145); Triglycerides 105 mg/dL (Less than 150)
[2020-10-17] MEDS: HumaLOG 300 UNITS/3 ML VIAL SC PRN ×3 (06:36→20:39)
[2020-10-17] MEDS: Clopidogrel Bisulfate 75 MG TAB PO SCH (09:00)
[2020-10-17] MEDS: Aspirin 81 mg Enteric Coated Tablet PO SCH (09:00)
[2020-10-17] MEDS: Dronedarone HCl 400 MG TAB PO SCH ×2 (09:00→16:42)
[2020-10-17] MEDS: Metoprolol Tartrate 25 MG TAB PO SCH ×2 (09:00→20:47)
[2020-10-17] MEDS: Lantus 1000 UNITS/10 ML VIAL SC SCH (11:15)
[2020-10-17] MEDS ORDERED: Amlodipine 5 MG TAB PO SCH (16:30)
[2020-10-17] MEDS: Latanoprost 0.005% Ophth Soln 2.5 ml Bottle EA EYE SCH (20:47)
[2020-10-17] MEDS: Atorvastatin Calcium 40 MG TAB PO SCH (20:47)
[2020-10-18 06:07] LABS: Anion Gap 10 mmol/L (10-20); BUN (Urea Nitrogen) 20 mg/dL (8.4-25.7); Calc. Creatinine Clearance 86 mL/min (70-130); Calcium 9.2 mg/dL (7.8-10.44); Carbon Dioxide 26 mmol/L (23-31); Chloride 105 mmol/L (98-107); Glucose 232 mg/dL (83-110); Magnesium 1.8 mg/dL (1.6-2.6); Potassium 4.1 mmol/L (3.5-5.1); Sodium 137 mmol/L (136-145)
[2020-10-18 08:51] VITALS: BP 145/80; TEMP 97.4
[2020-10-18] MEDS ORDERED: Amlodipine 5 MG TAB PO SCH (09:00)
[2020-10-18] MEDS: Aspirin 81 mg Enteric Coated Tablet PO SCH (09:22)
[2020-10-18] MEDS: Clopidogrel Bisulfate 75 MG TAB PO SCH (09:22)
[2020-10-18] MEDS: Dronedarone HCl 400 MG TAB PO SCH (09:23)
[2020-10-18] MEDS: Lantus 1000 UNITS/10 ML VIAL SC SCH (11:06)
[2020-10-18] MEDS: Metoprolol Tartrate 25 MG TAB PO SCH (11:46)
== END 2020-10-18 12:15 | disposition home or self-care (01) | DRG 310 ==
LOC: 2SW 18:21 → OBSVTOIN 10-17 08:19
PROVIDERS: ADMIT Family Medicine; ATTEND Internal Medicine
DX: I48.92 Unspecified atrial flutter (principal); Z20.822 Contact with and (suspected) exposure to COVID-19; I25.10 Atherosclerotic heart disease of native coronary artery without angina pectoris; I48.0 Paroxysmal atrial fibrillation; E78.5 Hyperlipidemia, unspecified; J44.9 Chronic obstructive pulmonary disease, unspecified; E11.22 Type 2 diabetes mellitus with diabetic chronic kidney disease; I12.9 Hypertensive chronic kidney disease with stage 1 through stage 4 chronic kidney disease, or unspecified chronic kidney disease; Z96.651 Presence of right artificial knee joint; N18.31 Chronic kidney disease, stage 3a; Z88.1 Allergy status to other antibiotic agents; Z79.84 Long term (current) use of oral hypoglycemic drugs; Z79.82 Long term (current) use of aspirin; Z79.899 Other long term (current) drug therapy
CPT/HCPCS: 36415; 36416; 78452; 80048; 80061; 83735; 85025; 87635; 93017; 94640; A9500; G0378; J1815; J2785; J7620; U0002; U0003; U0005

== ENCOUNTER 2020-11-12 12:40 | Outpatient (CLI) | payer MEDICARE ==
[2020-11-12 14:46] LABS: PTT 27.8 sec (22.0-33.0); Prothrombin Time 11.3 sec (9.5-12.1)
[2020-11-12 14:51] LABS: Anion Gap 19 mmol/L (10-20); BUN (Urea Nitrogen) 26 mg/dL (8.4-25.7); Calc. Creatinine Clearance 0 mL/min (70-130); Calcium 9.9 mg/dL (7.8-10.44); Carbon Dioxide 25 mmol/L (23-31); Chloride 104 mmol/L (98-107); Glucose 113 mg/dL (83-110); Potassium 4.5 mmol/L (3.5-5.1); Sodium 143 mmol/L (136-145)
[2020-11-12 15:45] LABS: Hemoglobin 14.1 g/dL (13.5-17.5); Mean Corpuscular HGB CONC 33.7 g/dL (32.0-36.0); Mean Corpuscular Volume 92.1 fl (81.2-95.1); Mean Platelet Volume 9.8 fl (7.4-10.4); Platelet Count 274 10x3/uL (150-450); RBC Distribution Width 13.3 % (11.5-14.5); Red Blood Cell (RBC) Count 4.55 10x6/uL (4.32-5.72); White Blood Cell (WBC) Count 7.9 10x3/uL (3.5-10.5)
== END 2020-11-12 12:41 | disposition home or self-care (01) ==
LOC: LABBT 12:40
PROVIDERS: ATTEND Internal Medicine Cardiovascular Disease
DX: Z01.818 Encounter for other preprocedural examination (principal); I47.1 Supraventricular tachycardia
CPT/HCPCS: 80048; 85027; 85610; 85730

== ENCOUNTER 2020-11-17 06:01 | Observation (INO) | payer MEDICARE ==
[2020-11-17] MEDS ORDERED: Heparin 10,000 UNITS/ 10 ML VIAL ONE ×3 (06:39→09:17)
[2020-11-17] MEDS ORDERED: Lidocaine 1% (PF) 30 ML VIAL ONE (06:39)
[2020-11-17] MEDS ORDERED: Isoproterenol 0.2 MG/1 ML AMP ONE ×2 (06:39→09:17)
[2020-11-17] MEDS ORDERED: Midazolam HCl 2 mg/2 ml Vial ONE (07:15)
[2020-11-17] MEDS ORDERED: Ketamine 50 MG/ML (10ML VIAL) ONE (07:15)
[2020-11-17] MEDS ORDERED: Fentanyl 100 MCG/2 ML VIAL ONE (07:15)
[2020-11-17] MEDS ORDERED: Propofol 500 MG/50 ML VIAL ONE ×2 (07:16→08:13)
[2020-11-17] MEDS ORDERED: Phenylephrine 10 MG/ML VIAL ONE (07:16)
[2020-11-17] MEDS ORDERED: Rocuronium Bromide 10 MG/ML (10ML VIAL) ONE (07:36)
[2020-11-17] MEDS ORDERED: PROPOFOL 200 MG/20 ML VIAL ONE (07:36)
[2020-11-17] MEDS ORDERED: Heparin 25,000 units/D5W 500 ML ONE (08:03)
[2020-11-17] MEDS ORDERED: Protamine Sulfate 50 MG/5 ML VIAL ONE (11:38)
[2020-11-17] MEDS ORDERED: SUGAMMADEX SODIUM 200 MG/2 ML VIAL ONE (11:49)
[2020-11-17] MEDS ORDERED: Acetaminophen/Codeine 30-300mg Tablet PO PRN ×2 (19:00)
[2020-11-17] MEDS ORDERED: Potassium Chloride 20 MEQ TAB PO PRN (19:03)
[2020-11-17] MEDS ORDERED: Furosemide 40 MG TAB PO PRN (19:03)
[2020-11-17] MEDS ORDERED: Ketorolac Tromethamine 30 MG/ML VIAL IVP PRN (19:04)
[2020-11-17 20:16] VITALS: BMI 36.7
[2020-11-17] MEDS ORDERED: [UNRECOGNIZED DRUG - REMARK] PO SCH (21:00)
[2020-11-17] MEDS ORDERED: Atorvastatin Calcium 40 MG TAB PO SCH (23:30)
[2020-11-17] MEDS: Sucralfate 1 GM TAB PO SCH (23:36)
[2020-11-18] MEDS: Sucralfate 1 GM TAB PO SCH (05:49)
[2020-11-18] MEDS ORDERED: metFORMIN 500 MG TAB PO SCH (08:00)
[2020-11-18 08:26] VITALS: TEMP 98.5
[2020-11-18] MEDS ORDERED: Furosemide 40 MG/4 ML VIAL SLOW IVP SCH (08:30)
[2020-11-18] MEDS ORDERED: Potassium Chloride 20 MEQ TAB PO SCH (08:30)
[2020-11-18] MEDS ORDERED: Lantus 1000 UNITS/10 ML VIAL SC SCH (09:00)
[2020-11-18] MEDS ORDERED: ACETAMINOPHEN PO SCH (09:00)
[2020-11-18] MEDS ORDERED: Albuterol Sulfate 2.5 mg/3 ml Neb NEB SCH (09:00)
[2020-11-18] MEDS ORDERED: Aspirin 81 mg Enteric Coated Tablet PO SCH (09:00)
[2020-11-18] MEDS ORDERED: Apixaban 2.5 MG TAB PO SCH ×2 (09:00)
[2020-11-18] MEDS ORDERED: CHLORPHENIRAMINE PO SCH (09:00)
[2020-11-18 10:17] VITALS: BP 164/79
[2020-11-18] MEDS ORDERED: Latanoprost 0.005% Ophth Soln 2.5 ml Bottle EA EYE SCH (21:00)
[2020-11-18] MEDS ORDERED: Atorvastatin Calcium 40 MG TAB PO SCH (21:00)
== END 2020-11-18 11:58 | disposition home or self-care (01) ==
LOC: CCL 06:01 → 2SW 14:07
PROVIDERS: ADMIT Internal Medicine Cardiovascular Disease; ATTEND Internal Medicine Cardiovascular Disease
PROC: 02583ZZ Destruction of Conduction Mechanism, Percutaneous Approach (ICD-10-PCS; principal; 2020-11-17)
PROC: 02K83ZZ Map Conduction Mechanism, Percutaneous Approach (ICD-10-PCS; 2020-11-17)
PROC: 4A023FZ Measurement of Cardiac Rhythm, Percutaneous Approach (ICD-10-PCS; 2020-11-17)
PROC: 4A0234Z Measurement of Cardiac Electrical Activity, Percutaneous Approach (ICD-10-PCS; 2020-11-17)
DX: I47.1 Supraventricular tachycardia (principal); I48.19 Other persistent atrial fibrillation; I48.92 Unspecified atrial flutter; I25.10 Atherosclerotic heart disease of native coronary artery without angina pectoris; E11.9 Type 2 diabetes mellitus without complications; I10 Essential (primary) hypertension; J44.9 Chronic obstructive pulmonary disease, unspecified; Z79.01 Long term (current) use of anticoagulants; Z79.4 Long term (current) use of insulin; Z79.82 Long term (current) use of aspirin; Z79.899 Other long term (current) drug therapy; Z88.8 Allergy status to other drugs, medicaments and biological substances
CPT/HCPCS: 82962 ×2; 85347 ×2; 93005 ×2; 93312; 93613; 93623; 93655; 93656; 93657; 93662; 93798; 96374; C1730; C1732 ×2; C1759; G0378 ×2; 36416; 76942; 93010; J1644; J1815; J1940; J2001; J2250; J2370; J2704; J2720; J3010

== ENCOUNTER 2020-12-03 12:22 | Observation (INO) | payer MEDICARE ==
[2020-12-03 16:17] VITALS: BMI 35.9
[2020-12-03] MEDS ORDERED: Furosemide 40 MG TAB PO PRN (16:44)
[2020-12-03] MEDS ORDERED: Dextrose 5% in Water 1,000 ML IV PRN (16:44)
[2020-12-03] MEDS ORDERED: Ondansetron PF 4 MG/2 ML Vial IVP PRN (16:44)
[2020-12-03] MEDS ORDERED: Nitroglycerin 0.4 MG TAB (25 Tab Bottle) SL PRN (16:44)
[2020-12-03] MEDS ORDERED: HumaLOG 300 UNITS/3 ML VIAL SC PRN ×2 (16:44)
[2020-12-03] MEDS ORDERED: Dextrose 50% Abboject 50 ML SYRINGE SLOW IVP PRN (16:44)
[2020-12-03] MEDS ORDERED: Ondansetron ODT 4 MG TAB PO PRN (16:44)
[2020-12-03] MEDS ORDERED: Acetaminophen 500 MG TAB PO PRN (16:44)
[2020-12-03] MEDS ORDERED: Potassium Chloride 20 MEQ TAB PO PRN (16:44)
[2020-12-03] MEDS ORDERED: hydrALAZINE 20 MG/ML VIAL SLOW IVP PRN (16:44)
[2020-12-03] MEDS ORDERED: Aspirin Chewable 81 MG TAB PO SCH (17:30)
[2020-12-03] MEDS: metFORMIN 500 MG TAB PO SCH (18:02)
[2020-12-03 18:37] LABS: Troponin I 0.042 ng/mL (< 0.028)
[2020-12-03 20:38] LABS: Troponin I 0.052 ng/mL (< 0.028)
[2020-12-03] MEDS: Atorvastatin Calcium 40 MG TAB PO SCH (21:04)
[2020-12-03] MEDS: Apixaban 5 MG TAB PO SCH (21:04)
[2020-12-03] MEDS: Famotidine 20 MG TAB PO SCH (21:04)
[2020-12-03] MEDS: Latanoprost 0.005% Ophth Soln 2.5 ml Bottle EA EYE SCH (21:32)
[2020-12-04 05:20] LABS: #Eosinphils 0.3 thou/uL (0.0-0.7); #Lymphocytes 1.4 thou/uL (1.20-3.40); #Monocytes 0.7 thou/uL (0.11-0.59); #Neutrophils 6.2 thou/uL (1.40-6.50); %Basophils 0.4 % (0.0-1.0); %Eosinophils 3.8 % (0.0-10.0); %Lymphocytes 16.3 % (21.0-51.0); %Monocytes 8.5 % (0.0-10.0); Hemoglobin 13.5 g/dL (14.0-18.0); Mean Corpuscular HGB CONC 34.6 g/dL (32.0-36.0); Mean Corpuscular Hemoglobin 32.4 pg (27.0-31.0); Mean Corpuscular Volume 93.7 fL (78.0-98.0); Mean Platelet Volume 7.3 fL (7.4-10.4); Platelet Count 271 thou/uL (130-400); RBC Distribution Width 12.4 % (11.5-14.5); Red Blood Cell (RBC) Count 4.17 mill/uL (4.70-6.10); White Blood Cell (WBC) Count 8.7 thou/uL (4.8-10.8)
[2020-12-04 06:20] LABS: Anion Gap 19 mmol/L (10-20); BUN (Urea Nitrogen) 32 mg/dL (8.4-25.7); Calc. Creatinine Clearance 75 mL/min (70-130); Calcium 9.3 mg/dL (7.8-10.44); Carbon Dioxide 22 mmol/L (23-31); Cardiac Risk 3.4 (Less than 4.5); Chloride 103 mmol/L (98-107); Cholesterol 113 mg/dl (< 200 Desired); Glucose 75 mg/dL (83-110); HDL Cholesterol 33 mg/dL (>60 Neg Risk); LDL Cholesterol, Calculated 45 mg/dL; Potassium 3.5 mmol/L (3.5-5.1); Sodium 140 mmol/L (136-145); Triglycerides 176 mg/dL (Less than 150)
[2020-12-04] MEDS: Albuterol Sulfate 2.5 mg/3 ml Neb NEB SCH (06:28)
[2020-12-04] MEDS ORDERED: Glimepiride 2 MG TAB PO SCH (08:00)
[2020-12-04] MEDS: Aspirin Chewable 81 MG TAB PO SCH (08:54)
[2020-12-04] MEDS: Apixaban 5 MG TAB PO SCH ×2 (08:54→20:24)
[2020-12-04] MEDS: Famotidine 20 MG TAB PO SCH ×2 (08:56→20:24)
[2020-12-04] MEDS ORDERED: Lantus 1000 UNITS/10 ML VIAL SC SCH (09:00)
[2020-12-04] MEDS: metFORMIN 500 MG TAB PO SCH (09:29)
[2020-12-04] MEDS: Digoxin 0.5 MG/2 ML AMP SLOW IVP SCH ×2 (13:09→18:00)
[2020-12-04] MEDS ORDERED: Magnesium Sulfate 4 GM in Sodium Chloride 0.9% 250 ML 250 ML IVPB SCH (15:00)
[2020-12-04] MEDS ORDERED: Ipratropium Bromide 2.5 ml Neb NEB PRN (15:30)
[2020-12-04 15:46] LABS: SARS-CoV-2 PCR by NAA Not Detected (NotDetected)
[2020-12-04] MEDS ORDERED: Potassium Chloride 20 MEQ TAB PO SCH (17:00)
[2020-12-04] MEDS: Atorvastatin Calcium 40 MG TAB PO SCH (20:24)
[2020-12-04] MEDS: Latanoprost 0.005% Ophth Soln 2.5 ml Bottle EA EYE SCH (20:26)
[2020-12-05] MEDS: Digoxin 0.5 MG/2 ML AMP SLOW IVP SCH (00:10)
[2020-12-05 05:05] LABS: Anion Gap 15 mmol/L (10-20); BUN (Urea Nitrogen) 21 mg/dL (8.4-25.7); Calc. Creatinine Clearance 88 mL/min (70-130); Carbon Dioxide 23 mmol/L (23-31); Chloride 104 mmol/L (98-107); Glucose 153 mg/dL (83-110); Magnesium 2.3 mg/dL (1.6-2.6); Potassium 3.6 mmol/L (3.5-5.1); Sodium 138 mmol/L (136-145)
[2020-12-05] MEDS: Albuterol Sulfate 2.5 mg/3 ml Neb NEB SCH (07:30)
[2020-12-05] MEDS: Aspirin Chewable 81 MG TAB PO SCH (08:13)
[2020-12-05] MEDS: Famotidine 20 MG TAB PO SCH (08:13)
[2020-12-05] MEDS: Apixaban 5 MG TAB PO SCH ×2 (08:13→21:11)
[2020-12-05] MEDS ORDERED: Montelukast Sodium 10 mg Tablet PO PRN (08:38)
[2020-12-05] MEDS ORDERED: Hydrochlorothiazide 25 MG TAB PO SCH (11:15)
[2020-12-05] MEDS: Hydrochlorothiazide 25 MG TAB PO SCH (12:05)
[2020-12-05] MEDS ORDERED: Potassium Chloride 20 MEQ TAB PO SCH (17:00)
[2020-12-05] MEDS: metFORMIN 500 MG TAB PO SCH (17:11)
[2020-12-05] MEDS: Dronedarone HCl 400 MG TAB PO SCH (17:13)
[2020-12-05] MEDS: HumaLOG 300 UNITS/3 ML VIAL SC PRN (17:14)
[2020-12-05] MEDS: Atorvastatin Calcium 40 MG TAB PO SCH (21:11)
[2020-12-05] MEDS: Latanoprost 0.005% Ophth Soln 2.5 ml Bottle EA EYE SCH (21:12)
[2020-12-06 05:07] LABS: Anion Gap 13 mmol/L (10-20); BUN (Urea Nitrogen) 18 mg/dL (8.4-25.7); Calc. Creatinine Clearance 85 mL/min (70-130); Calcium 9.1 mg/dL (7.8-10.44); Carbon Dioxide 24 mmol/L (23-31); Chloride 102 mmol/L (98-107); Glucose 186 mg/dL (83-110); Potassium 3.5 mmol/L (3.5-5.1); Sodium 135 mmol/L (136-145)
[2020-12-06] MEDS: HumaLOG 300 UNITS/3 ML VIAL SC PRN (05:43)
[2020-12-06 07:39] VITALS: BP 143/69
[2020-12-06 07:40] VITALS: TEMP 97.7
[2020-12-06] MEDS: Albuterol Sulfate 2.5 mg/3 ml Neb NEB SCH (07:53)
[2020-12-06] MEDS ORDERED: Potassium Chloride 20 MEQ TAB PO SCH ×2 (08:00)
[2020-12-06] MEDS: Apixaban 5 MG TAB PO SCH (08:19)
[2020-12-06] MEDS: Hydrochlorothiazide 25 MG TAB PO SCH (08:19)
[2020-12-06] MEDS: metFORMIN 500 MG TAB PO SCH (08:19)
[2020-12-06] MEDS: Aspirin Chewable 81 MG TAB PO SCH (08:20)
[2020-12-06] MEDS: Dronedarone HCl 400 MG TAB PO SCH (08:20)
== END 2020-12-06 12:11 | disposition home or self-care (01) ==
LOC: 2SW 12:22
PROVIDERS: ADMIT Family Medicine; ATTEND Internal Medicine
DX: I47.1 Supraventricular tachycardia (principal); R07.89 Other chest pain; R55 Syncope and collapse; I25.10 Atherosclerotic heart disease of native coronary artery without angina pectoris; E87.6 Hypokalemia; E83.42 Hypomagnesemia; I13.0 Hypertensive heart and chronic kidney disease with heart failure and stage 1 through stage 4 chronic kidney disease, or unspecified chronic kidney disease; E11.22 Type 2 diabetes mellitus with diabetic chronic kidney disease; N18.30 Chronic kidney disease, stage 3 unspecified; I50.32 Chronic diastolic (congestive) heart failure; N17.9 Acute kidney failure, unspecified; D63.1 Anemia in chronic kidney disease; I44.0 Atrioventricular block, first degree; I25.2 Old myocardial infarction; E78.5 Hyperlipidemia, unspecified; J44.9 Chronic obstructive pulmonary disease, unspecified; M19.90 Unspecified osteoarthritis, unspecified site; I48.91 Unspecified atrial fibrillation; I31.3 Pericardial effusion (noninflammatory); I08.1 Rheumatic disorders of both mitral and tricuspid valves; E87.1 Hypo-osmolality and hyponatremia; E66.01 Morbid (severe) obesity due to excess calories; Z68.35 Body mass index [BMI] 35.0-35.9, adult; Z87.891 Personal history of nicotine dependence; Z79.01 Long term (current) use of anticoagulants; Z79.4 Long term (current) use of insulin; Z79.82 Long term (current) use of aspirin; Z79.899 Other long term (current) drug therapy; Z88.8 Allergy status to other drugs, medicaments and biological substances; Z20.822 Contact with and (suspected) exposure to COVID-19
CPT/HCPCS: 80048 ×3; 80061; 82962 ×3; 83735 ×2; 84100; 84484; 85025; 93306; 94640 ×3; 94760 ×3; U0003; U0005; 36415; 36416; 96365; 96366; 96375; 96376; G0378; J0360; J1160; J1815; J3475; J7050; J7611

== ENCOUNTER 2021-09-30 22:03 | Inpatient (IN) | payer MEDICARE ==
[2021-10-01 01:28] VITALS: BMI 34.3
[2021-10-01] MEDS ORDERED: HumaLOG 300 UNITS/3 ML VIAL SC PRN (02:44)
[2021-10-01] MEDS ORDERED: Dextrose 5% in Water 1,000 ML IV PRN (02:44)
[2021-10-01] MEDS ORDERED: Dextrose 50% Abboject 50 ML SYRINGE SLOW IVP PRN (02:44)
[2021-10-01] MEDS ORDERED: Ondansetron ODT 4 MG TAB PO PRN (02:44)
[2021-10-01] MEDS ORDERED: Acetaminophen 650 MG Suppository PR PRN (02:44)
[2021-10-01] MEDS ORDERED: Ondansetron PF 4 MG/2 ML Vial IVP PRN (02:44)
[2021-10-01] MEDS ORDERED: Acetaminophen 325 MG TAB PO PRN (02:44)
[2021-10-01] MEDS ORDERED: Furosemide 40 MG/4 ML VIAL SLOW IVP SCH (03:15)
[2021-10-01 04:34] LABS: #Eosinphils 0.3 thou/uL (0.0-0.7); #Lymphocytes 0.8 thou/uL (1.20-3.40); #Monocytes 0.6 thou/uL (0.11-0.59); #Neutrophils 5.7 thou/uL (1.40-6.50); %Eosinophils 3.8 % (0.0-10.0); %Lymphocytes 10.5 % (21.0-51.0); %Monocytes 8.5 % (0.0-10.0); %Neutrophils 77.2 % (42.0-75.0); Hemoglobin 12.8 g/dL (14.0-18.0); Mean Corpuscular Hemoglobin 29.1 pg (27.0-31.0); Mean Corpuscular Volume 90.7 fL (78.0-98.0); Mean Platelet Volume 6.8 fL (7.4-10.4); Platelet Count 387 thou/uL (130-400); RBC Distribution Width 14.8 % (11.5-14.5); Red Blood Cell (RBC) Count 4.42 mill/uL (4.70-6.10); White Blood Cell (WBC) Count 7.4 thou/uL (4.8-10.8)
[2021-10-01 04:57] LABS: Anion Gap 15 mmol/L (10-20); BUN (Urea Nitrogen) 20 mg/dL (8.4-25.7); Calc. Creatinine Clearance 65 mL/min (70-130); Calcium 9.5 mg/dL (7.8-10.44); Carbon Dioxide 24 mmol/L (23-31); Chloride 103 mmol/L (98-107); Glucose 199 mg/dL (83-110); Sodium 138 mmol/L (136-145)
[2021-10-01 06:29] LABS: Magnesium 2.2 mg/dL (1.6-2.6)
[2021-10-01] MEDS: Mometasone 100 MCG/Formoterol 5 MCG 120 PUFF INHALER INH SCH ×2 (06:57→18:54)
[2021-10-01 07:23] LABS: Phosphorus 4.3 mg/dL (2.3-4.7)
[2021-10-01] MEDS: Betamethasone Val 0.1% Lotion 60 ML BOT TOP SCH (09:46)
[2021-10-01] MEDS: Aspirin 81 mg Enteric Coated Tablet PO SCH (09:48)
[2021-10-01] MEDS: Furosemide 40 MG/4 ML VIAL SLOW IVP SCH (09:48)
[2021-10-01] MEDS: Sucralfate 1 GM TAB PO SCH ×2 (18:21→21:35)
[2021-10-01] MEDS: Apixaban 5 MG TAB PO SCH (21:35)
[2021-10-01] MEDS: Montelukast Sodium 10 mg Tablet PO SCH (21:35)
[2021-10-02 04:26] LABS: #Eosinphils 0.2 thou/uL (0.0-0.7); #Lymphocytes 0.8 thou/uL (1.20-3.40); #Monocytes 0.8 thou/uL (0.11-0.59); #Neutrophils 5.6 thou/uL (1.40-6.50); %Eosinophils 3.2 % (0.0-10.0); %Lymphocytes 11.3 % (21.0-51.0); %Monocytes 10.1 % (0.0-10.0); %Neutrophils 75.3 % (42.0-75.0); Hemoglobin 13.2 g/dL (14.0-18.0); Mean Corpuscular HGB CONC 32.8 g/dL (32.0-36.0); Mean Corpuscular Hemoglobin 29.5 pg (27.0-31.0); Mean Corpuscular Volume 90.2 fL (78.0-98.0); Mean Platelet Volume 6.7 fL (7.4-10.4); Platelet Count 375 thou/uL (130-400); RBC Distribution Width 14.8 % (11.5-14.5); Red Blood Cell (RBC) Count 4.46 mill/uL (4.70-6.10); White Blood Cell (WBC) Count 7.4 thou/uL (4.8-10.8)
[2021-10-02 04:44] LABS: Anion Gap 15 mmol/L (10-20); BUN (Urea Nitrogen) 22 mg/dL (8.4-25.7); Calc. Creatinine Clearance 64 mL/min (70-130); Calcium 9.1 mg/dL (7.8-10.44); Carbon Dioxide 28 mmol/L (23-31); Chloride 102 mmol/L (98-107); Glucose 141 mg/dL (83-110); Potassium 3.5 mmol/L (3.5-5.1); Sodium 141 mmol/L (136-145)
[2021-10-02] MEDS: Mometasone 100 MCG/Formoterol 5 MCG 120 PUFF INHALER INH SCH ×2 (07:02→18:53)
[2021-10-02] MEDS: Atorvastatin Calcium 40 MG TAB PO SCH (09:53)
[2021-10-02] MEDS: Aspirin 81 mg Enteric Coated Tablet PO SCH (09:54)
[2021-10-02] MEDS: Apixaban 5 MG TAB PO SCH ×2 (09:55→20:07)
[2021-10-02] MEDS: Sucralfate 1 GM TAB PO SCH ×4 (10:00→20:07)
[2021-10-02] MEDS: Glimepiride 2 MG TAB PO SCH (10:01)
[2021-10-02] MEDS: Furosemide 40 MG/4 ML VIAL SLOW IVP SCH (10:02)
[2021-10-02] MEDS: Betamethasone Val 0.1% Lotion 60 ML BOT TOP SCH (10:02)
[2021-10-02] MEDS ORDERED: Lantus 1000 UNITS/10 ML VIAL SC SCH (12:45)
[2021-10-02] MEDS ORDERED: Insulin Glargine 30 UNITS/0.3 ML VIAL SC SCH (13:15)
[2021-10-02] MEDS: Nitroglycerin 0.4 MG TAB (25 Tab Bottle) SL PRN ×3 (20:00→20:19)
[2021-10-02] MEDS: Montelukast Sodium 10 mg Tablet PO SCH (20:07)
[2021-10-02 20:23] LABS: Troponin I 0.022 ng/mL (< 0.028)
[2021-10-02] MEDS ORDERED: Morphine 2 MG/ML VIAL SLOW IVP SCH (20:46)
[2021-10-02] MEDS ORDERED: Lidocaine 2% Viscous Solution 20 ML, Aluminum & Magnesium Hydroxide 30 ML, Donnatal Eli... SSW SCH (21:00)
[2021-10-02] MEDS ORDERED: Cyclobenzaprine 10 MG TAB PO SCH (22:07)
[2021-10-03] MEDS ORDERED: Melatonin 3 MG TAB PO PRN (00:40)
[2021-10-03 04:22] LABS: #Eosinphils 0.3 thou/uL (0.0-0.7); #Lymphocytes 0.8 thou/uL (1.20-3.40); #Monocytes 0.7 thou/uL (0.11-0.59); #Neutrophils 5.1 thou/uL (1.40-6.50); %Monocytes 10.4 % (0.0-10.0); %Neutrophils 74.7 % (42.0-75.0); Hemoglobin 12.7 g/dL (14.0-18.0); Mean Corpuscular HGB CONC 31.4 g/dL (32.0-36.0); Mean Corpuscular Hemoglobin 28.3 pg (27.0-31.0); Mean Corpuscular Volume 90.4 fL (78.0-98.0); Mean Platelet Volume 6.8 fL (7.4-10.4); Platelet Count 353 thou/uL (130-400); RBC Distribution Width 14.6 % (11.5-14.5); Red Blood Cell (RBC) Count 4.49 mill/uL (4.70-6.10); White Blood Cell (WBC) Count 6.8 thou/uL (4.8-10.8)
[2021-10-03 04:53] LABS: Anion Gap 17 mmol/L (10-20); BUN (Urea Nitrogen) 26 mg/dL (8.4-25.7); Calc. Creatinine Clearance 56 mL/min (70-130); Calcium 9.2 mg/dL (7.8-10.44); Carbon Dioxide 26 mmol/L (23-31); Chloride 101 mmol/L (98-107); Glucose 185 mg/dL (83-110); Potassium 3.5 mmol/L (3.5-5.1); Sodium 140 mmol/L (136-145)
[2021-10-03] MEDS: Mometasone 100 MCG/Formoterol 5 MCG 120 PUFF INHALER INH SCH ×2 (07:02→18:59)
[2021-10-03] MEDS: Glimepiride 2 MG TAB PO SCH (07:54)
[2021-10-03] MEDS: Apixaban 5 MG TAB PO SCH ×2 (07:55→20:50)
[2021-10-03] MEDS: Aspirin 81 mg Enteric Coated Tablet PO SCH (07:56)
[2021-10-03] MEDS: Sucralfate 1 GM TAB PO SCH ×4 (07:56→20:50)
[2021-10-03] MEDS: Atorvastatin Calcium 40 MG TAB PO SCH (07:57)
[2021-10-03] MEDS: Furosemide 40 MG/4 ML VIAL SLOW IVP SCH (07:59)
[2021-10-03] MEDS ORDERED: Insulin Glargine 30 UNITS/0.3 ML VIAL SC SCH ×2 (09:00→13:15)
[2021-10-03] MEDS: Betamethasone Val 0.1% Lotion 60 ML BOT TOP SCH (09:32)
[2021-10-03] MEDS: HumaLOG 300 UNITS/3 ML VIAL SC PRN ×2 (13:52→18:19)
[2021-10-03] MEDS: Montelukast Sodium 10 mg Tablet PO SCH (20:51)
[2021-10-04 04:13] LABS: #Eosinphils 0.3 thou/uL (0.0-0.7); #Lymphocytes 0.7 thou/uL (1.20-3.40); #Monocytes 0.8 thou/uL (0.11-0.59); #Neutrophils 5.4 thou/uL (1.40-6.50); %Basophils 0.1 % (0.0-1.0); %Eosinophils 4.9 % (0.0-10.0); %Lymphocytes 9.4 % (21.0-51.0); %Monocytes 10.6 % (0.0-10.0); Hemoglobin 12.4 g/dL (14.0-18.0); Mean Corpuscular HGB CONC 32.9 g/dL (32.0-36.0); Mean Corpuscular Hemoglobin 29.5 pg (27.0-31.0); Mean Corpuscular Volume 89.5 fL (78.0-98.0); Mean Platelet Volume 6.9 fL (7.4-10.4); Platelet Count 342 thou/uL (130-400); RBC Distribution Width 14.6 % (11.5-14.5); Red Blood Cell (RBC) Count 4.21 mill/uL (4.70-6.10); White Blood Cell (WBC) Count 7.1 thou/uL (4.8-10.8)
[2021-10-04 04:32] LABS: Anion Gap 14 mmol/L (10-20); BUN (Urea Nitrogen) 24 mg/dL (8.4-25.7); Calc. Creatinine Clearance 59 mL/min (70-130); Carbon Dioxide 28 mmol/L (23-31); Chloride 101 mmol/L (98-107); Glucose 168 mg/dL (83-110); Potassium 3.4 mmol/L (3.5-5.1); Sodium 140 mmol/L (136-145)
[2021-10-04] MEDS: Mometasone 100 MCG/Formoterol 5 MCG 120 PUFF INHALER INH SCH (07:06)
[2021-10-04] MEDS ORDERED: Insulin Glargine 30 UNITS/0.3 ML VIAL SC SCH (09:00)
[2021-10-04] MEDS: Glimepiride 2 MG TAB PO SCH (09:19)
[2021-10-04] MEDS: Atorvastatin Calcium 40 MG TAB PO SCH (09:20)
[2021-10-04] MEDS: Apixaban 5 MG TAB PO SCH (09:20)
[2021-10-04] MEDS: Betamethasone Val 0.1% Lotion 60 ML BOT TOP SCH (09:20)
[2021-10-04] MEDS: Aspirin 81 mg Enteric Coated Tablet PO SCH (09:20)
[2021-10-04] MEDS: Sucralfate 1 GM TAB PO SCH (09:21)
[2021-10-04] MEDS ORDERED: Potassium Chloride 20 MEQ TAB PO SCH (10:30)
[2021-10-04 11:32] VITALS: BP 124/77; TEMP 97.6
[2021-10-05] MEDS ORDERED: Furosemide 40 MG TAB PO SCH (07:30)
== END 2021-10-04 12:05 | disposition home or self-care (01) | DRG 291 ==
LOC: 2NO 22:03 → OBSVTOIN 10-03 12:11
PROVIDERS: ADMIT Student in an Organized Health Care Education/Training Program; ATTEND Internal Medicine
DX: I11.0 Hypertensive heart disease with heart failure (principal); J96.01 Acute respiratory failure with hypoxia; I50.33 Acute on chronic diastolic (congestive) heart failure; I48.92 Unspecified atrial flutter; Z20.822 Contact with and (suspected) exposure to COVID-19; E11.9 Type 2 diabetes mellitus without complications; J44.9 Chronic obstructive pulmonary disease, unspecified; G47.33 Obstructive sleep apnea (adult) (pediatric); E66.01 Morbid (severe) obesity due to excess calories; I48.91 Unspecified atrial fibrillation; E78.5 Hyperlipidemia, unspecified; I25.10 Atherosclerotic heart disease of native coronary artery without angina pectoris; E87.6 Hypokalemia; Z88.1 Allergy status to other antibiotic agents; Z79.82 Long term (current) use of aspirin; Z79.4 Long term (current) use of insulin; Z79.899 Other long term (current) drug therapy; Z79.51 Long term (current) use of inhaled steroids; Z79.01 Long term (current) use of anticoagulants; Z79.84 Long term (current) use of oral hypoglycemic drugs; Z90.49 Acquired absence of other specified parts of digestive tract; Z68.32 Body mass index [BMI] 32.0-32.9, adult
CPT/HCPCS: 36415; 36416; 80048; 83735; 84100; 84484; 85025; 93005; 93010; 93306; 94640; J1815; J1940; J2270; J7620

== ENCOUNTER 2021-10-08 19:10 | Inpatient (IN) | payer MEDICARE ==
[2021-10-08 19:55] LABS: #Eosinphils 0.3 thou/uL (0.0-0.7); #Lymphocytes 0.8 thou/uL (1.20-3.40); #Monocytes 0.8 thou/uL (0.11-0.59); #Neutrophils 6.2 thou/uL (1.40-6.50); %Basophils 0.2 % (0.0-1.0); %Eosinophils 3.2 % (0.0-10.0); %Lymphocytes 10.4 % (21.0-51.0); %Monocytes 9.6 % (0.0-10.0); %Neutrophils 76.6 % (42.0-75.0); Mean Corpuscular HGB CONC 31.8 g/dL (32.0-36.0); Mean Corpuscular Hemoglobin 28.7 pg (27.0-31.0); Mean Corpuscular Volume 90.2 fL (78.0-98.0); Mean Platelet Volume 7.4 fL (7.4-10.4); Platelet Count 296 thou/uL (130-400); RBC Distribution Width 14.6 % (11.5-14.5); Red Blood Cell (RBC) Count 4.53 mill/uL (4.70-6.10); White Blood Cell (WBC) Count 8.1 thou/uL (4.8-10.8)
[2021-10-08 20:12] LABS: ALT (SGPT) 19 U/L (8-55); AST (SGOT) 14 U/L (5-34); Albumin 4.1 g/dL (3.4-4.8); Alkaline Phosphatase 123 U/L (40-110); Anion Gap 18 mmol/L (10-20); BUN (Urea Nitrogen) 30 mg/dL (8.4-25.7); Bilirubin, Total 0.9 mg/dL (0.2-1.2); Calc. Creatinine Clearance 0 mL/min (70-130); Calcium 9.3 mg/dL (7.8-10.44); Carbon Dioxide 25 mmol/L (23-31); Chloride 102 mmol/L (98-107); Globulin 2.5 g/dL (2.4-3.5); Glucose 264 mg/dL (83-110); Lipase 21 U/L (8-78); Magnesium 1.9 mg/dL (1.6-2.6); Potassium 3.7 mmol/L (3.5-5.1); Protein, Total 6.6 g/dL (5.8-8.1); Sodium 141 mmol/L (136-145)
[2021-10-08 20:34] LABS: CKMB 1.5 ng/mL (0-6.6)
[2021-10-08 21:34] LABS: Bilirubin Negative (Negative); Blood, Urine Negative (Negative); Clarity Clear (Clear); Glucose, Urine (Dipstick) Normal (Negative); Ketone, Urine Negative (Negative); Leukocyte Negative Leu/uL (Negative); Nitrite Negative (Negative); Protein, Urine (Dipstick) Negative (Neg-Trace); Urobilinogen Normal mg/dL (Less than 2); pH, Urine 5.5 (5.0-9.0)
[2021-10-08] MEDS ORDERED: Dextrose 50% Abboject 50 ML SYRINGE SLOW IVP PRN (21:45)
[2021-10-08] MEDS ORDERED: Dextrose 5% in Water 1,000 ML IV PRN (21:45)
[2021-10-08] MEDS ORDERED: Acetaminophen 325 MG TAB PO PRN (21:49)
[2021-10-08] MEDS ORDERED: Ondansetron ODT 4 MG TAB PO PRN (21:49)
[2021-10-08] MEDS ORDERED: Ondansetron PF 4 MG/2 ML Vial IVP PRN (21:49)
[2021-10-08] MEDS ORDERED: Senokot S 8.6-50 MG TAB PO PRN (21:49)
[2021-10-08] MEDS ORDERED: Albuterol Sulfate 2.5 mg/3 ml Neb NEB PRN (21:56)
[2021-10-08 23:19] LABS: Phosphorus 3.4 mg/dL (2.3-4.7)
[2021-10-08 23:20] LABS: Magnesium 1.8 mg/dL (1.6-2.6)
[2021-10-09 00:43] VITALS: BMI 33.9
[2021-10-09 00:44] LABS: SARS-CoV-2 NAA Rapid Test Not Detected (NotDetected)
[2021-10-09 01:27] LABS: CKMB 1.6 ng/mL (0-6.6)
[2021-10-09 03:35] LABS: #Eosinphils 0.4 thou/uL (0.0-0.7); #Lymphocytes 0.9 thou/uL (1.20-3.40); #Monocytes 0.7 thou/uL (0.11-0.59); #Neutrophils 4.5 thou/uL (1.40-6.50); %Basophils 0.7 % (0.0-1.0); %Eosinophils 5.9 % (0.0-10.0); %Lymphocytes 13.4 % (21.0-51.0); %Monocytes 10.2 % (0.0-10.0); %Neutrophils 69.8 % (42.0-75.0); Hemoglobin 12.9 g/dL (14.0-18.0); Mean Corpuscular HGB CONC 33.3 g/dL (32.0-36.0); Mean Corpuscular Hemoglobin 29.7 pg (27.0-31.0); Mean Corpuscular Volume 89.2 fL (78.0-98.0); Mean Platelet Volume 7.4 fL (7.4-10.4); Platelet Count 235 thou/uL (130-400); RBC Distribution Width 14.5 % (11.5-14.5); Red Blood Cell (RBC) Count 4.34 mill/uL (4.70-6.10); White Blood Cell (WBC) Count 6.4 thou/uL (4.8-10.8)
[2021-10-09 03:57] LABS: Anion Gap 15 mmol/L (10-20); BUN (Urea Nitrogen) 29 mg/dL (8.4-25.7); Calc. Creatinine Clearance 61 mL/min (70-130); Carbon Dioxide 27 mmol/L (23-31); Chloride 102 mmol/L (98-107); Glucose 210 mg/dL (83-110); Potassium 3.2 mmol/L (3.5-5.1); Sodium 141 mmol/L (136-145)
[2021-10-09] MEDS: Sucralfate 1 GM TAB PO SCH ×4 (08:11→20:24)
[2021-10-09] MEDS: Apixaban 5 MG TAB PO SCH ×2 (08:11→20:23)
[2021-10-09] MEDS: Atorvastatin Calcium 40 MG TAB PO SCH (08:11)
[2021-10-09] MEDS: Hydrochlorothiazide 25 MG TAB PO SCH (08:11)
[2021-10-09] MEDS: Furosemide 40 MG TAB PO SCH (08:11)
[2021-10-09] MEDS: Aspirin 81 mg Enteric Coated Tablet PO SCH (08:11)
[2021-10-09 10:59] LABS: Anion Gap 16 mmol/L (10-20); BUN (Urea Nitrogen) 28 mg/dL (8.4-25.7); Calc. Creatinine Clearance 60 mL/min (70-130); Calcium 9.6 mg/dL (7.8-10.44); Carbon Dioxide 27 mmol/L (23-31); Chloride 101 mmol/L (98-107); Glucose 236 mg/dL (83-110); Potassium 3.5 mmol/L (3.5-5.1); Sodium 140 mmol/L (136-145)
[2021-10-09 11:00] LABS: Digoxin 1.17 ng/mL (0.8-2.0)
[2021-10-09 11:03] LABS: Troponin I 0.028 ng/mL (< 0.028)
[2021-10-09] MEDS: Insulin Glargine 30 UNITS/0.3 ML VIAL SC SCH (11:15)
[2021-10-09] MEDS: HumaLOG 300 UNITS/3 ML VIAL SC PRN ×2 (16:56→20:24)
[2021-10-09] MEDS: Montelukast Sodium 10 mg Tablet PO SCH (20:23)
[2021-10-09] MEDS: Metoprolol Tartrate 25 MG TAB PO SCH (20:24)
[2021-10-10 04:31] LABS: #Eosinphils 0.2 thou/uL (0.0-0.7); #Lymphocytes 0.8 thou/uL (1.20-3.40); #Monocytes 0.7 thou/uL (0.11-0.59); #Neutrophils 4.6 thou/uL (1.40-6.50); %Basophils 0.6 % (0.0-1.0); %Eosinophils 3.8 % (0.0-10.0); %Lymphocytes 12.7 % (21.0-51.0); %Monocytes 11.1 % (0.0-10.0); %Neutrophils 71.8 % (42.0-75.0); Mean Corpuscular HGB CONC 33.1 g/dL (32.0-36.0); Mean Corpuscular Hemoglobin 29.4 pg (27.0-31.0); Mean Corpuscular Volume 88.9 fL (78.0-98.0); Mean Platelet Volume 7.6 fL (7.4-10.4); Platelet Count 257 thou/uL (130-400); RBC Distribution Width 14.7 % (11.5-14.5); Red Blood Cell (RBC) Count 4.43 mill/uL (4.70-6.10); White Blood Cell (WBC) Count 6.5 thou/uL (4.8-10.8)
[2021-10-10 04:53] LABS: Anion Gap 17 mmol/L (10-20); BUN (Urea Nitrogen) 29 mg/dL (8.4-25.7); Calc. Creatinine Clearance 59 mL/min (70-130); Calcium 9.3 mg/dL (7.8-10.44); Carbon Dioxide 24 mmol/L (23-31); Chloride 98 mmol/L (98-107); Glucose 216 mg/dL (83-110); Potassium 3.1 mmol/L (3.5-5.1); Sodium 136 mmol/L (136-145)
[2021-10-10] MEDS: HumaLOG 300 UNITS/3 ML VIAL SC PRN ×4 (05:41→20:30)
[2021-10-10] MEDS: Aspirin 81 mg Enteric Coated Tablet PO SCH (07:52)
[2021-10-10] MEDS: Metoprolol Tartrate 25 MG TAB PO SCH ×2 (07:53→20:29)
[2021-10-10] MEDS: Hydrochlorothiazide 25 MG TAB PO SCH (07:55)
[2021-10-10] MEDS: Atorvastatin Calcium 40 MG TAB PO SCH (07:55)
[2021-10-10] MEDS: Furosemide 40 MG TAB PO SCH (07:55)
[2021-10-10] MEDS: Insulin Glargine 30 UNITS/0.3 ML VIAL SC SCH (07:55)
[2021-10-10] MEDS: Sucralfate 1 GM TAB PO SCH ×4 (08:34→20:29)
[2021-10-10] MEDS ORDERED: Magnesium 2 GM/50 ML(in water) 2 GM in Premix Bag 1 BAG IVPB SCH (08:45)
[2021-10-10] MEDS ORDERED: Potassium Chloride 20 MEQ TAB PO SCH (08:45)
[2021-10-10] MEDS ORDERED: Apixaban 2.5 MG TAB PO SCH (09:00)
[2021-10-10] MEDS ORDERED: Furosemide 40 MG TAB PO SCH (14:00)
[2021-10-10] MEDS: Nitroglycerin 0.4 MG TAB (25 Tab Bottle) SL PRN (15:45)
[2021-10-10] MEDS ORDERED: Mometasone Furoate 30 PUFF 220 MCG INH SCH (18:30)
[2021-10-10] MEDS: Albuterol Sulfate 2.5 mg/3 ml Neb NEB SCH (18:53)
[2021-10-10] MEDS: Mometasone 100 MCG/Formoterol 5 MCG 120 PUFF INHALER INH SCH (19:04)
[2021-10-10] MEDS: Montelukast Sodium 10 mg Tablet PO SCH (20:29)
[2021-10-11 05:18] LABS: #Eosinphils 0.4 thou/uL (0.0-0.7); #Lymphocytes 0.8 thou/uL (1.20-3.40); #Monocytes 0.9 thou/uL (0.11-0.59); #Neutrophils 5.6 thou/uL (1.40-6.50); %Basophils 0.2 % (0.0-1.0); %Lymphocytes 10.2 % (21.0-51.0); %Monocytes 11.6 % (0.0-10.0); Hemoglobin 13.9 g/dL (14.0-18.0); Mean Corpuscular HGB CONC 32.1 g/dL (32.0-36.0); Mean Corpuscular Hemoglobin 28.5 pg (27.0-31.0); Mean Corpuscular Volume 88.7 fL (78.0-98.0); Mean Platelet Volume 7.7 fL (7.4-10.4); Platelet Count 265 thou/uL (130-400); RBC Distribution Width 14.8 % (11.5-14.5); Red Blood Cell (RBC) Count 4.88 mill/uL (4.70-6.10); White Blood Cell (WBC) Count 7.7 thou/uL (4.8-10.8)
[2021-10-11 05:21] LABS: ALT (SGPT) 20 U/L (8-55); AST (SGOT) 16 U/L (5-34); Albumin 4.1 g/dL (3.4-4.8); Alkaline Phosphatase 119 U/L (40-110); Anion Gap 16 mmol/L (10-20); BUN (Urea Nitrogen) 28 mg/dL (8.4-25.7); Bilirubin, Total 1.1 mg/dL (0.2-1.2); Calc. Creatinine Clearance 56 mL/min (70-130); Calcium 9.5 mg/dL (7.8-10.44); Carbon Dioxide 27 mmol/L (23-31); Chloride 99 mmol/L (98-107); Globulin 2.9 g/dL (2.4-3.5); Glucose 134 mg/dL (83-110); Phosphorus 3.5 mg/dL (2.3-4.7); Potassium 3.3 mmol/L (3.5-5.1); Sodium 139 mmol/L (136-145)
[2021-10-11] MEDS: Albuterol Sulfate 2.5 mg/3 ml Neb NEB SCH (07:16)
[2021-10-11] MEDS: Mometasone 100 MCG/Formoterol 5 MCG 120 PUFF INHALER INH SCH ×2 (07:17→18:27)
[2021-10-11] MEDS ORDERED: Communication Order-Pharmacy FS SCH (09:00)
[2021-10-11] MEDS: Sucralfate 1 GM TAB PO SCH ×4 (09:44→22:06)
[2021-10-11] MEDS: Atorvastatin Calcium 40 MG TAB PO SCH (09:45)
[2021-10-11] MEDS: Metoprolol Tartrate 25 MG TAB PO SCH ×2 (09:45→22:06)
[2021-10-11] MEDS: Aspirin 81 mg Enteric Coated Tablet PO SCH (09:45)
[2021-10-11] MEDS: Insulin Glargine 30 UNITS/0.3 ML VIAL SC SCH (09:46)
[2021-10-11] MEDS: HumaLOG 300 UNITS/3 ML VIAL SC PRN ×2 (11:25→22:08)
[2021-10-11] MEDS: Nitroglycerin 0.4 MG TAB (25 Tab Bottle) SL PRN (15:50)
[2021-10-11] MEDS ORDERED: Potassium Chloride 20 MEQ TAB PO SCH ×2 (18:15→23:45)
[2021-10-11] MEDS ORDERED: Electrolyte Replacement Protocol 1 EACH FS SCH (18:15)
[2021-10-11] MEDS: Montelukast Sodium 10 mg Tablet PO SCH (22:06)
[2021-10-11 22:49] LABS: Potassium 3.5 mmol/L (3.5-5.1)
[2021-10-11] MEDS ORDERED: Magnesium 2 GM/50 ML(in water) 2 GM in Premix Bag 1 BAG IVPB SCH (23:45)
[2021-10-11] MEDS: Sodium Chloride 0.9% 1,000 ML IV SCH (23:55)
[2021-10-12 05:38] LABS: ALT (SGPT) 17 U/L (8-55); AST (SGOT) 18 U/L (5-34); Albumin 3.6 g/dL (3.4-4.8); Alkaline Phosphatase 117 U/L (40-110); Anion Gap 13 mmol/L (10-20); BUN (Urea Nitrogen) 32 mg/dL (8.4-25.7); Bilirubin, Total 0.7 mg/dL (0.2-1.2); Calc. Creatinine Clearance 56 mL/min (70-130); Calcium 8.9 mg/dL (7.8-10.44); Carbon Dioxide 28 mmol/L (23-31); Chloride 101 mmol/L (98-107); Globulin 2.6 g/dL (2.4-3.5); Glucose 183 mg/dL (83-110); Magnesium 2.6 mg/dL (1.6-2.6); Potassium 3.7 mmol/L (3.5-5.1); Protein, Total 6.2 g/dL (5.8-8.1); Sodium 138 mmol/L (136-145)
[2021-10-12] MEDS: Aspirin 81 mg Enteric Coated Tablet PO SCH (06:42)
[2021-10-12] MEDS: Atorvastatin Calcium 40 MG TAB PO SCH (06:43)
[2021-10-12] MEDS: Metoprolol Tartrate 25 MG TAB PO SCH ×2 (06:43→20:55)
[2021-10-12] MEDS: Sucralfate 1 GM TAB PO SCH ×4 (06:43→20:54)
[2021-10-12] MEDS: Mometasone 100 MCG/Formoterol 5 MCG 120 PUFF INHALER INH SCH ×2 (07:39→18:41)
[2021-10-12] MEDS ORDERED: Iopamidol 370 76% 100 ML VIAL ONE (09:08)
[2021-10-12] MEDS: Furosemide 40 MG TAB PO SCH (09:46)
[2021-10-12] MEDS ORDERED: Lidocaine 1% (PF) 30 ML VIAL ONE (11:28)
[2021-10-12] MEDS ORDERED: Verapamil 5 MG/2 ML VIAL ONE (11:39)
[2021-10-12] MEDS ORDERED: Heparin 10,000 UNITS/ 10 ML VIAL ONE (11:39)
[2021-10-12] MEDS ORDERED: Nitroglycerin 100MG/250ML BOT 250 ML ONE (11:39)
[2021-10-12] MEDS: Sodium Chloride 0.9% 1,000 ML IV SCH ×2 (11:40→23:36)
[2021-10-12] MEDS ORDERED: Midazolam HCl 2 mg/2 ml Vial ONE (12:10)
[2021-10-12] MEDS ORDERED: Fentanyl 100 MCG/2 ML VIAL ONE (12:10)
[2021-10-12] MEDS: Insulin Glargine 30 UNITS/0.3 ML VIAL SC SCH ×2 (17:36→17:47)
[2021-10-12] MEDS: Apixaban 2.5 MG TAB PO SCH (20:55)
[2021-10-12] MEDS: Montelukast Sodium 10 mg Tablet PO SCH (20:55)
[2021-10-13 05:33] LABS: Anion Gap 12 mmol/L (10-20); BUN (Urea Nitrogen) 25 mg/dL (8.4-25.7); Calc. Creatinine Clearance 69 mL/min (70-130); Calcium 8.7 mg/dL (7.8-10.44); Carbon Dioxide 27 mmol/L (23-31); Chloride 104 mmol/L (98-107); Glucose 149 mg/dL (83-110); Magnesium 2.1 mg/dL (1.6-2.6); Phosphorus 3.1 mg/dL (2.3-4.7); Potassium 3.3 mmol/L (3.5-5.1); Sodium 140 mmol/L (136-145)
[2021-10-13 05:47] LABS: #Eosinphils 0.3 thou/uL (0.0-0.7); #Lymphocytes 0.9 thou/uL (1.20-3.40); #Monocytes 0.8 thou/uL (0.11-0.59); #Neutrophils 5.3 thou/uL (1.40-6.50); %Basophils 0.1 % (0.0-1.0); %Lymphocytes 12.1 % (21.0-51.0); %Monocytes 11.3 % (0.0-10.0); %Neutrophils 72.5 % (42.0-75.0); Hemoglobin 12.8 g/dL (14.0-18.0); Mean Corpuscular HGB CONC 31.8 g/dL (32.0-36.0); Mean Corpuscular Hemoglobin 28.6 pg (27.0-31.0); Mean Corpuscular Volume 89.9 fL (78.0-98.0); Mean Platelet Volume 4.9 fL (7.4-10.4); Platelet Count 221 thou/uL (130-400); RBC Distribution Width 14.8 % (11.5-14.5); Red Blood Cell (RBC) Count 4.47 mill/uL (4.70-6.10); White Blood Cell (WBC) Count 7.3 thou/uL (4.8-10.8)
[2021-10-13] MEDS ORDERED: Potassium Chloride 20 MEQ TAB PO SCH (06:30)
[2021-10-13] MEDS: Mometasone 100 MCG/Formoterol 5 MCG 120 PUFF INHALER INH SCH (07:15)
[2021-10-13 07:19] VITALS: BP 116/78; TEMP 97.6
[2021-10-13] MEDS: Metoprolol Tartrate 25 MG TAB PO SCH (08:33)
[2021-10-13] MEDS: Apixaban 2.5 MG TAB PO SCH (08:33)
[2021-10-13] MEDS: Sucralfate 1 GM TAB PO SCH (08:33)
[2021-10-13] MEDS: Atorvastatin Calcium 40 MG TAB PO SCH (08:33)
[2021-10-13] MEDS: Aspirin 81 mg Enteric Coated Tablet PO SCH (08:33)
[2021-10-13] MEDS: Furosemide 40 MG TAB PO SCH (08:33)
[2021-10-13] MEDS ORDERED: Insulin Glargine 30 UNITS/0.3 ML VIAL SC SCH (09:00)
== END 2021-10-13 11:40 | disposition home or self-care (01) | DRG 287 ==
LOC: ERS 19:10 → 2SW 21:39 → OBSVTOIN 10-10 08:44
PROVIDERS: ADMIT Internal Medicine; ATTEND Internal Medicine
PROC: 4A023N7 Measurement of Cardiac Sampling and Pressure, Left Heart, Percutaneous Approach (ICD-10-PCS; principal; 2021-10-12)
PROC: B2111ZZ Fluoroscopy of Multiple Coronary Arteries using Low Osmolar Contrast (ICD-10-PCS; 2021-10-12)
PROC: B2151ZZ Fluoroscopy of Left Heart using Low Osmolar Contrast (ICD-10-PCS; 2021-10-12)
DX: I25.110 Atherosclerotic heart disease of native coronary artery with unstable angina pectoris (principal); I48.92 Unspecified atrial flutter; I13.0 Hypertensive heart and chronic kidney disease with heart failure and stage 1 through stage 4 chronic kidney disease, or unspecified chronic kidney disease; I47.2 Ventricular tachycardia; I48.21 Permanent atrial fibrillation; I50.32 Chronic diastolic (congestive) heart failure; N17.9 Acute kidney failure, unspecified; Z20.822 Contact with and (suspected) exposure to COVID-19; J44.9 Chronic obstructive pulmonary disease, unspecified; I48.91 Unspecified atrial fibrillation; N18.30 Chronic kidney disease, stage 3 unspecified; E11.22 Type 2 diabetes mellitus with diabetic chronic kidney disease; K21.9 Gastro-esophageal reflux disease without esophagitis; E78.5 Hyperlipidemia, unspecified; D63.1 Anemia in chronic kidney disease; E66.01 Morbid (severe) obesity due to excess calories; Z88.1 Allergy status to other antibiotic agents; Z79.82 Long term (current) use of aspirin; Z79.4 Long term (current) use of insulin; Z79.51 Long term (current) use of inhaled steroids; Z79.899 Other long term (current) drug therapy; Z68.34 Body mass index [BMI] 34.0-34.9, adult; E87.6 Hypokalemia; E83.42 Hypomagnesemia
CPT/HCPCS: 36415; 36416; 71045; 80048; 80053; 80162; 81003; 82553; 83690; 83735; 83880; 84100; 84484; 85025; 93005; 93306; 93458; 93798; 94640; 99152; 99153; J1644; J1815; J2001; J2250; J3010; J3475; J7050; J7611; J7620; Q9967

== ENCOUNTER 2021-10-25 19:08 | Inpatient (IN) | payer MEDICARE ==
[2021-10-25 23:13] VITALS: BMI 36.4
[2021-10-26] MEDS ORDERED: Acetaminophen 325 MG TAB PO PRN (00:45)
[2021-10-26] MEDS ORDERED: Ondansetron ODT 4 MG TAB PO PRN (00:45)
[2021-10-26] MEDS ORDERED: Ondansetron PF 4 MG/2 ML Vial IVP PRN (00:45)
[2021-10-26] MEDS ORDERED: Acetaminophen 650 MG Suppository PR PRN (00:45)
[2021-10-26] MEDS ORDERED: Dextrose 5% in Water 1,000 ML IV PRN (03:42)
[2021-10-26] MEDS ORDERED: Dextrose 50% Abboject 50 ML SYRINGE SLOW IVP PRN (03:42)
[2021-10-26] MEDS ORDERED: HumaLOG 300 UNITS/3 ML VIAL SC PRN (03:42)
[2021-10-26] MEDS ORDERED: Nitroglycerin 0.4 MG TAB (25 Tab Bottle) SL PRN (03:51)
[2021-10-26] MEDS ORDERED: Betamethasone Val 0.1% Lotion 60 ML BOT TOP PRN (03:51)
[2021-10-26 04:50] LABS: #Eosinphils 0.1 thou/uL (0.0-0.7); #Lymphocytes 0.7 thou/uL (1.20-3.40); #Monocytes 0.8 thou/uL (0.11-0.59); #Neutrophils 7.5 thou/uL (1.40-6.50); %Basophils 0.1 % (0.0-1.0); %Eosinophils 1.6 % (0.0-10.0); %Lymphocytes 7.4 % (21.0-51.0); %Monocytes 8.8 % (0.0-10.0); %Neutrophils 82.1 % (42.0-75.0); Hemoglobin 11.8 g/dL (14.0-18.0); Mean Corpuscular HGB CONC 32.4 g/dL (32.0-36.0); Mean Corpuscular Hemoglobin 29.2 pg (27.0-31.0); Mean Corpuscular Volume 90.1 fL (78.0-98.0); Platelet Count 277 thou/uL (130-400); RBC Distribution Width 15.7 % (11.5-14.5); Red Blood Cell (RBC) Count 4.05 mill/uL (4.70-6.10); White Blood Cell (WBC) Count 9.2 thou/uL (4.8-10.8)
[2021-10-26 05:08] LABS: Anion Gap 16 mmol/L (10-20); BUN (Urea Nitrogen) 38 mg/dL (8.4-25.7); Calc. Creatinine Clearance 57 mL/min (70-130); Calcium 8.8 mg/dL (7.8-10.44); Carbon Dioxide 22 mmol/L (23-31); Chloride 106 mmol/L (98-107); Magnesium 2.1 mg/dL (1.6-2.6); Potassium 3.6 mmol/L (3.5-5.1); Sodium 140 mmol/L (136-145)
[2021-10-26 05:23] LABS: Glucose 42 mg/dL (83-110)
[2021-10-26] MEDS: Mometasone 100 MCG/PUFF (1 INHALER) INH SCH ×2 (07:57→18:09)
[2021-10-26] MEDS: Mometasone 100 MCG/Formoterol 5 MCG 120 PUFF INHALER INH SCH ×2 (07:57→18:15)
[2021-10-26] MEDS: Metoprolol Tartrate 25 MG TAB PO SCH ×2 (09:50→20:40)
[2021-10-26] MEDS: Furosemide 40 MG/4 ML VIAL SLOW IVP SCH (09:50)
[2021-10-26] MEDS: Apixaban 2.5 MG TAB PO SCH ×2 (09:50→20:40)
[2021-10-26] MEDS: Aspirin 81 mg Enteric Coated Tablet PO SCH (09:50)
[2021-10-26 12:00] LABS: SARS-CoV-2 PCR by NAA Not Detected (NotDetected)
[2021-10-27] MEDS: Mometasone 100 MCG/PUFF (1 INHALER) INH SCH ×2 (06:03→19:12)
[2021-10-27] MEDS: Mometasone 100 MCG/Formoterol 5 MCG 120 PUFF INHALER INH SCH ×2 (06:57→19:12)
[2021-10-27 08:34] LABS: Anion Gap 10 mmol/L (10-20); BUN (Urea Nitrogen) 27 mg/dL (8.4-25.7); Calc. Creatinine Clearance 67 mL/min (70-130); Calcium 8.6 mg/dL (7.8-10.44); Carbon Dioxide 29 mmol/L (23-31); Chloride 106 mmol/L (98-107); Glucose 100 mg/dL (83-110); Sodium 141 mmol/L (136-145)
[2021-10-27] MEDS: Apixaban 2.5 MG TAB PO SCH ×2 (09:44→21:43)
[2021-10-27] MEDS: Furosemide 40 MG/4 ML VIAL SLOW IVP SCH (09:44)
[2021-10-27] MEDS: Aspirin 81 mg Enteric Coated Tablet PO SCH (09:44)
[2021-10-27] MEDS: Metoprolol Tartrate 25 MG TAB PO SCH ×2 (09:44→21:43)
[2021-10-27] MEDS: HumaLOG 300 UNITS/3 ML VIAL SC PRN (18:05)
[2021-10-28 05:03] LABS: Anion Gap 13 mmol/L (10-20); BUN (Urea Nitrogen) 24 mg/dL (8.4-25.7); Calc. Creatinine Clearance 73 mL/min (70-130); Calcium 8.8 mg/dL (7.8-10.44); Carbon Dioxide 27 mmol/L (23-31); Chloride 103 mmol/L (98-107); Glucose 120 mg/dL (83-110); Potassium 3.5 mmol/L (3.5-5.1); Sodium 139 mmol/L (136-145)
[2021-10-28] MEDS: Mometasone 100 MCG/PUFF (1 INHALER) INH SCH ×2 (07:02→18:36)
[2021-10-28] MEDS: Mometasone 100 MCG/Formoterol 5 MCG 120 PUFF INHALER INH SCH ×2 (07:02→18:37)
[2021-10-28] MEDS: Aspirin 81 mg Enteric Coated Tablet PO SCH (09:45)
[2021-10-28] MEDS: Metoprolol Tartrate 25 MG TAB PO SCH ×2 (09:45→20:10)
[2021-10-28] MEDS: Furosemide 40 MG/4 ML VIAL SLOW IVP SCH (09:46)
[2021-10-28] MEDS: Apixaban 2.5 MG TAB PO SCH ×2 (09:46→20:10)
[2021-10-28] MEDS: HumaLOG 300 UNITS/3 ML VIAL SC PRN ×2 (12:11→17:22)
[2021-10-29 04:51] LABS: Anion Gap 12 mmol/L (10-20); BUN (Urea Nitrogen) 25 mg/dL (8.4-25.7); Calc. Creatinine Clearance 68 mL/min (70-130); Calcium 8.9 mg/dL (7.8-10.44); Carbon Dioxide 30 mmol/L (23-31); Chloride 103 mmol/L (98-107); Glucose 175 mg/dL (83-110); Potassium 3.6 mmol/L (3.5-5.1); Sodium 141 mmol/L (136-145)
[2021-10-29] MEDS: Mometasone 100 MCG/Formoterol 5 MCG 120 PUFF INHALER INH SCH ×2 (06:57→22:04)
[2021-10-29] MEDS: Mometasone 100 MCG/PUFF (1 INHALER) INH SCH ×2 (06:57→22:04)
[2021-10-29] MEDS: Furosemide 40 MG/4 ML VIAL SLOW IVP SCH (09:25)
[2021-10-29] MEDS: Aspirin 81 mg Enteric Coated Tablet PO SCH (09:25)
[2021-10-29] MEDS: Apixaban 2.5 MG TAB PO SCH ×2 (09:25→19:47)
[2021-10-29] MEDS: Metoprolol Tartrate 25 MG TAB PO SCH ×2 (09:25→19:47)
[2021-10-29] MEDS: HumaLOG 300 UNITS/3 ML VIAL SC PRN (10:22)
[2021-10-30] MEDS: Mometasone 100 MCG/Formoterol 5 MCG 120 PUFF INHALER INH SCH (06:58)
[2021-10-30] MEDS: Mometasone 100 MCG/PUFF (1 INHALER) INH SCH (06:58)
[2021-10-30] MEDS ORDERED: Furosemide 40 MG TAB PO SCH (07:30)
[2021-10-30] MEDS: Apixaban 2.5 MG TAB PO SCH (07:42)
[2021-10-30] MEDS: Metoprolol Tartrate 25 MG TAB PO SCH (07:42)
[2021-10-30] MEDS: Aspirin 81 mg Enteric Coated Tablet PO SCH (07:42)
[2021-10-30 08:13] VITALS: TEMP 97.6
[2021-10-30 08:14] LABS: Anion Gap 13 mmol/L (10-20); BUN (Urea Nitrogen) 23 mg/dL (8.4-25.7); Calc. Creatinine Clearance 69 mL/min (70-130); Calcium 8.8 mg/dL (7.8-10.44); Carbon Dioxide 28 mmol/L (23-31); Chloride 102 mmol/L (98-107); Glucose 147 mg/dL (83-110); Magnesium 2.1 mg/dL (1.6-2.6); Potassium 3.6 mmol/L (3.5-5.1); Sodium 139 mmol/L (136-145)
[2021-10-30 11:05] VITALS: BP 133/73
[2021-10-30] MEDS: HumaLOG 300 UNITS/3 ML VIAL SC PRN (16:12)
== END 2021-10-30 17:22 | disposition home or self-care (01) | DRG 291 ==
LOC: INTOOBSV 19:08 → 2NO 19:08 → OBSVTOIN 10-27 14:21 → T4-B 10-29 13:23
PROVIDERS: ADMIT Internal Medicine; ATTEND Internal Medicine
DX: I13.0 Hypertensive heart and chronic kidney disease with heart failure and stage 1 through stage 4 chronic kidney disease, or unspecified chronic kidney disease (principal); Z20.822 Contact with and (suspected) exposure to COVID-19; I50.33 Acute on chronic diastolic (congestive) heart failure; J96.01 Acute respiratory failure with hypoxia; N17.9 Acute kidney failure, unspecified; I48.21 Permanent atrial fibrillation; I25.10 Atherosclerotic heart disease of native coronary artery without angina pectoris; E11.22 Type 2 diabetes mellitus with diabetic chronic kidney disease; E78.2 Mixed hyperlipidemia; N18.31 Chronic kidney disease, stage 3a; J44.9 Chronic obstructive pulmonary disease, unspecified; Z96.651 Presence of right artificial knee joint; E66.01 Morbid (severe) obesity due to excess calories; G47.33 Obstructive sleep apnea (adult) (pediatric); K21.9 Gastro-esophageal reflux disease without esophagitis; D63.1 Anemia in chronic kidney disease; I34.0 Nonrheumatic mitral (valve) insufficiency; I25.2 Old myocardial infarction; Z79.01 Long term (current) use of anticoagulants; Z88.8 Allergy status to other drugs, medicaments and biological substances; Z91.09 Other allergy status, other than to drugs and biological substances; Z79.82 Long term (current) use of aspirin; Z79.899 Other long term (current) drug therapy; Z79.4 Long term (current) use of insulin; Z79.51 Long term (current) use of inhaled steroids; Z90.49 Acquired absence of other specified parts of digestive tract; Z98.890 Other specified postprocedural states; Z68.35 Body mass index [BMI] 35.0-35.9, adult
CPT/HCPCS: 36415; 36416; 80048; 83735; 83880; 85025; 93306; 93798; 94640; J1815; J1940; J7620; U0003; U0005

== ENCOUNTER 2021-11-15 19:00 | Outpatient (CLI) | payer MEDICARE | END 2021-11-15 19:01 | disposition home or self-care (01) | LOC: SLEEPLAB 19:00 | PROVIDERS: ATTEND Internal Medicine Critical Care Medicine | DX: G47.33 Obstructive sleep apnea (adult) (pediatric) (principal); R53.83 Other fatigue; J44.9 Chronic obstructive pulmonary disease, unspecified; R06.83 Snoring; G47.10 Hypersomnia, unspecified; G47.00 Insomnia, unspecified; I48.91 Unspecified atrial fibrillation; E11.9 Type 2 diabetes mellitus without complications; I10 Essential (primary) hypertension; G47.31 Primary central sleep apnea; I48.92 Unspecified atrial flutter | CPT/HCPCS: 95811 ==

== ENCOUNTER 2022-02-20 20:45 | Emergency (ER) | payer MEDICARE ==
[2022-02-20 22:24] LABS: #Eosinphils 0.3 thou/uL (0.0-0.7); #Lymphocytes 0.7 thou/uL (1.20-3.40); #Monocytes 0.7 thou/uL (0.11-0.59); #Neutrophils 5.2 thou/uL (1.40-6.50); %Basophils 0.5 % (0.0-1.0); %Eosinophils 3.7 % (0.0-10.0); %Lymphocytes 10.3 % (21.0-51.0); %Monocytes 9.6 % (0.0-10.0); %Neutrophils 75.9 % (42.0-75.0); Hemoglobin 11.1 g/dL (14.0-18.0); Mean Corpuscular HGB CONC 32.4 g/dL (32.0-36.0); Mean Corpuscular Hemoglobin 28.1 pg (27.0-31.0); Mean Corpuscular Volume 86.8 fL (78.0-98.0); Mean Platelet Volume 7.1 fL (7.4-10.4); Platelet Count 316 thou/uL (130-400); RBC Distribution Width 15.9 % (11.5-14.5); Red Blood Cell (RBC) Count 3.94 mill/uL (4.70-6.10); White Blood Cell (WBC) Count 6.8 thou/uL (4.8-10.8)
[2022-02-20 22:46] LABS: ALT (SGPT) 21 U/L (8-55); AST (SGOT) 13 U/L (5-34); Albumin 3.7 g/dL (3.4-4.8); Alkaline Phosphatase 100 U/L (40-110); Anion Gap 15 mmol/L (10-20); BUN (Urea Nitrogen) 29 mg/dL (8.4-25.7); Bilirubin, Total 0.5 mg/dL (0.2-1.2); Calc. Creatinine Clearance 0 mL/min (70-130); Calcium 8.9 mg/dL (7.8-10.44); Carbon Dioxide 23 mmol/L (23-31); Chloride 104 mmol/L (98-107); Estimated GFR 38; Globulin 2.7 g/dL (2.4-3.5); Glucose 178 mg/dL (83-110); Potassium 3.9 mmol/L (3.5-5.1); Protein, Total 6.4 g/dL (5.8-8.1); Sodium 138 mmol/L (136-145)
== END 2022-02-21 01:19 | disposition home or self-care (01) ==
LOC: ERS 20:45
DX: R07.9 Chest pain, unspecified (principal); I25.2 Old myocardial infarction; E78.5 Hyperlipidemia, unspecified; E78.00 Pure hypercholesterolemia, unspecified; I10 Essential (primary) hypertension; J44.9 Chronic obstructive pulmonary disease, unspecified
CPT/HCPCS: 36415; 80053; 84484; 85025; 93005

== ENCOUNTER 2023-05-09 09:30 | Inpatient (IN) | payer MEDICARE ==
[2023-05-09 11:53] VITALS: BMI 34.7
[2023-05-09 12:30] LABS: Bilirubin Neg (Negative); Blood, Urine Negative (Negative); Clarity Clear (Clear); Glucose, Urine (Dipstick) 50 mg/dL (Negative); Ketone, Urine Negative (Negative); Leukocyte Negative (Negative); Nitrite Negative (Negative); Protein, Urine (Dipstick) 15 mg/dl (Neg-Trace); Specific Gravity, Urine 1.015 (1.005-1.030); Urobilinogen Normal mg/dL (Less than 2)
[2023-05-09 12:33] LABS: Hematocrit 39.1 % (38.8-50.0); Hemoglobin 12.6 g/dL (13.5-17.5); Mean Corpuscular HGB CONC 32.2 g/dL (32.0-36.0); Mean Corpuscular Hemoglobin 26.1 pg (27.0-33.0); Mean Corpuscular Volume 81.1 fl (81.2-95.1); Mean Platelet Volume 9.5 fl (7.4-10.4); Platelet Count 275 10x3/uL (150-450); RBC Distribution Width 17.2 % (11.5-14.5); Red Blood Cell (RBC) Count 4.82 10x6/uL (4.32-5.72)
[2023-05-09 12:51] LABS: PTT 30.2 sec (22.0-33.0); Prothrombin Time 10.7 sec (9.5-12.1)
[2023-05-09 13:05] LABS: ALT (SGPT) 21 U/L (8-55); AST (SGOT) 15 U/L (5-34); Albumin 4.1 g/dL (3.4-4.8); Alkaline Phosphatase 95 U/L (40-110); Anion Gap 17 mmol/L (10-20); BUN (Urea Nitrogen) 23 mg/dL (8.4-25.7); Calc. Creatinine Clearance 0 mL/min (70-130); Calcium 9.4 mg/dL (7.8-10.44); Carbon Dioxide 21 mmol/L (23-31); Chloride 106 mmol/L (98-107); Estimated GFR 43; Globulin 2.9 g/dL (2.4-3.5); Glucose 147 mg/dL (83-110); Potassium 4.1 mmol/L (3.5-5.1); Sodium 140 mmol/L (136-145)
[2023-05-09 13:14] LABS: RBC/HPF None Seen HPF (0-3)
[2023-05-09 13:15] LABS: Bacteria/HPF None Seen HPF (None Seen); Squamous Epithelial 0-3 HPF (0-3); WBC/HPF 0-3 HPF (0-3)
[2023-05-09 13:23] LABS: Mucous/LPF Few LPF (<2+)
[2023-05-14] MEDS ORDERED: CEFAZOLIN 1 GM VIAL ONE (08:47)
[2023-05-14] MEDS ORDERED: Heparin 10,000 UNITS/ 10 ML VIAL ONE (08:47)
[2023-05-14] MEDS ORDERED: CEFAZOLIN 2 GM VIAL ONE (08:48)
[2023-05-14] MEDS ORDERED: Protamine Sulfate 50 MG/5 ML VIAL ONE (08:48)
[2023-05-14] MEDS ORDERED: fentaNYL 50 mcg/mL 1 mL Vial ONE ×2 (09:26→12:06)
[2023-05-14] MEDS ORDERED: PROPOFOL 200 MG/20 ML VIAL ONE (09:40)
[2023-05-14] MEDS ORDERED: Rocuronium Bromide 10 MG/ML (10ML VIAL) ONE (09:40)
[2023-05-14] MEDS ORDERED: Ondansetron PF 4 MG/2 ML Vial ONE (09:40)
[2023-05-14] MEDS ORDERED: Lidocaine 1% PF 5 ML VIAL ONE (09:40)
[2023-05-14] MEDS ORDERED: Iopamidol 370 76% 100 ML VIAL ONE (10:00)
[2023-05-14] MEDS ORDERED: SUGAMMADEX SODIUM 200 MG/2 ML VIAL ONE (11:29)
== END 2023-05-14 15:32 | disposition home or self-care (01) | DRG 274 ==
LOC: EDSTATUS 05-10 13:00 → SURG A 05-14 07:07
PROVIDERS: ADMIT Internal Medicine Cardiovascular Disease; ATTEND Internal Medicine Cardiovascular Disease
PROC: 02L73DK Occlusion of Left Atrial Appendage with Intraluminal Device, Percutaneous Approach (ICD-10-PCS; principal; 2023-05-14)
PROC: B245ZZ4 Ultrasonography of Left Heart, Transesophageal (ICD-10-PCS; 2023-05-14)
DX: I48.19 Other persistent atrial fibrillation (principal); Z00.6 Encounter for examination for normal comparison and control in clinical research program; I31.39 Other pericardial effusion (noninflammatory); I47.19 Other supraventricular tachycardia; I48.4 Atypical atrial flutter; D64.9 Anemia, unspecified; E11.22 Type 2 diabetes mellitus with diabetic chronic kidney disease; N18.9 Chronic kidney disease, unspecified; E78.5 Hyperlipidemia, unspecified; I12.9 Hypertensive chronic kidney disease with stage 1 through stage 4 chronic kidney disease, or unspecified chronic kidney disease; E66.9 Obesity, unspecified; Z79.01 Long term (current) use of anticoagulants; Z88.8 Allergy status to other drugs, medicaments and biological substances; Z68.34 Body mass index [BMI] 34.0-34.9, adult; Z98.890 Other specified postprocedural states; Z79.899 Other long term (current) drug therapy; Z79.84 Long term (current) use of oral hypoglycemic drugs; Z79.4 Long term (current) use of insulin; Z91.81 History of falling
CPT/HCPCS: 33340; 36416; 80053; 81001; 85027; 85347; 85610; 85730; 86850; 86900; 86901; 93306; 93312; C1759; C1760; C1769; C1894; J0690; J1644; J2405; J2704; J2720; J3010; Q9967

== ENCOUNTER 2023-07-16 05:56 | Day surgery (SDC) | payer MEDICARE ==
[2023-07-12 10:54] VITALS: BMI 33.7
[2023-07-16 06:51] LABS: #Basophils 0.1 thou/uL (0.0-0.2); #Eosinphils 0.4 thou/uL (0.0-0.7); #Monocytes 0.7 thou/uL (0.11-0.59); #Neutrophils 4.7 thou/uL (1.40-6.50); %Basophils 0.8 % (0.0-1.0); %Eosinophils 5.5 % (0.0-10.0); %Lymphocytes 9.8 % (21.0-51.0); %Monocytes 10.4 % (0.0-10.0); %Neutrophils 73.2 % (42.0-75.0); Hematocrit 36.5 % (42.0-52.0); Hemoglobin 11.6 g/dL (14.0-18.0); Mean Corpuscular HGB CONC 31.8 g/dL (32.0-36.0); Mean Corpuscular Volume 81.7 fl (78.0-98.0); Mean Platelet Volume 9.2 fL (7.4-10.4); Platelet Count 293 10x3/uL (130-400); RBC Distribution Width 17.3 % (11.5-14.5); Red Blood Cell (RBC) Count 4.47 mill/uL (4.70-6.10); White Blood Cell (WBC) Count 6.4 10x3/uL (4.8-10.8)
[2023-07-16 07:04] LABS: INR-International Normal Ratio 1.1; PTT 33.4 sec (22.9-36.1); Prothrombin Time 13.9 sec (12.0-14.7)
[2023-07-16 07:13] LABS: Anion Gap 14 mmol/L (10-20); BUN (Urea Nitrogen) 27 mg/dL (8.4-25.7); Calc. Creatinine Clearance 68 mL/min (70-130); Calcium 9.3 mg/dL (7.8-10.44); Carbon Dioxide 19 mmol/L (23-31); Chloride 109 mmol/L (98-107); Estimated GFR 48; Glucose 122 mg/dL (83-110); Potassium 3.9 mmol/L (3.5-5.1); Sodium 138 mmol/L (136-145)
[2023-07-16] MEDS ORDERED: Propofol 500 MG/50 ML VIAL ONE (07:47)
== END 2023-07-16 09:00 | disposition home or self-care (01) ==
LOC: SDC 05:56
PROVIDERS: ATTEND Internal Medicine Cardiovascular Disease
PROC: B24BZZ4 Ultrasonography of Heart with Aorta, Transesophageal (ICD-10-PCS; principal; 2023-07-16)
DX: I48.19 Other persistent atrial fibrillation (principal); I34.9 Nonrheumatic mitral valve disorder, unspecified; I35.1 Nonrheumatic aortic (valve) insufficiency; Z79.01 Long term (current) use of anticoagulants; Z91.048 Other nonmedicinal substance allergy status; Z88.8 Allergy status to other drugs, medicaments and biological substances
CPT/HCPCS: 36415; 80048; 85025; 85610; 85730; 93312; J2704

== ENCOUNTER 2024-07-14 14:53 | Outpatient (CLI) | payer MEDICARE | END 2024-07-14 14:54 | disposition home or self-care (01) | LOC: RAD 14:53 | PROVIDERS: ATTEND Internal Medicine Critical Care Medicine | DX: R06.00 Dyspnea, unspecified (principal); I51.7 Cardiomegaly | CPT/HCPCS: 71046 ==